=== PATIENT | female | born 1970 | race Caucasian/White ===

== ENCOUNTER 2020-04-04 00:13 | Emergency (ER) | payer SELFPAY ==
[2020-04-04 00:32] VITALS: BP 144/98; PULSE 108; RESP 18; TEMP 36.8; O2SAT 98
--- NOTE | 2020-04-04 00:33 | ED.GIBLEED ---
HPI - GI Bleed General Chief complaint: GI Bleed Stated complaint: rectal pain Source: patient Mode of arrival: ambulatory History of Present Illness HPI Narrative: this is a 49-year-old female presents with some rectal pain, does have history of rectal fissures, patient has tried topical anesthetics like lidocaine but it felt uncomfortable and caused the rectum to burn so she removed it. Currently pain is uncomfortable, has a history of depression and hyperlipidemia. Currently there is no rectal bleeding, no fever chills no nausea vomiting or abdominal [email or web address] MD complaint: other ( currently no bleeding, history of rectal fissures) Onset (ago): month(s) Severity: moderate Exacerbating factors: bowel movement Associated symptoms: denies other symptoms Related Data Home Medications Medication Instructions Recorded Confirmed hydrocortisone acetate [Anucort-HC] 25 mg NE PRN PRN 04/04/20 04/04/20 sertraline 100 mg PO DAILY 04/04/20 04/04/20 trazodone 50 mg PO HS 04/04/20 04/04/20 venlafaxine 75 mg PO DAILY 04/04/20 04/04/20 Allergies Allergy/AdvReac Type Severity Reaction Status Date / Time anesthesia meds Allergy Mild Uncoded 04/22/09 22:02 Review of Systems Review of Systems: All systems reviewed & are unremarkable except as noted in HPI and below PMFSH Past Medical History Medical History Depression HLD (hyperlipidemia) Family History Family History Mother Family history of elevated blood lipids Grandparent Family history of cardiovascular disease Family history of lung cancer Family history of malignant neoplasm of breast in first degree relative Social History Social History Smoking status: Never smoker Alcohol intake: never Substance use type: marijuana Exam Const: General: no acute distress Orientation/consciousness: patient oriented x3 HENMT: Head: normal to inspection Eyes: Pupils: Equal, round and reactive pupils present Neck: Neck: normal visual inspection Chest: Chest palpation & inspection: normal inspection of the chest Resp: Effort & Inspection: normal respiratory effort Cardio: Rate: regular rate Rhythm: regular rhythm GI: GI Palp: Yes Soft to palpation Other: rectal exam that appear to have anal fissure located at the 6 o'clock position with no bleeding currently Skin: General skin exam: normal color Rashes: no rashes Neuro: General: patient oriented x3, moves all extremities and no meningeal signs Extrem: General: normal to inspection and no pedal edema Psych: Appearance: grossly normal Mental Status: mental status grossly normal Course Course Emergency Course: applied nitroglycerin ointment to annual fissure patient voiced some relief of her discomfort. Also used IM Toradol for pain. Critical Care Time Critical Care Time Critical Care Time: No Discharge Plan Discharge Clinical Impression: Chronic rectal fissure Patient Disposition: Home, Self-Care Condition: Stable Instructions: Antibiotic Form, Anal Fissure (ED) Additional Instructions: you some medication as prescribed, and follow-up with primary care physician for further evaluation and treatment. Prescriptions: New Rectiv 0.4 % (w/w) ointment 1 inch RECTAL BID 7 Days Qty: 30 RF: 0 No Action venlafaxine 75 mg capsule,extended release 24hr 75 mg PO DAILY RF: 0 trazodone 50 mg tablet 50 mg PO HS RF: 0 sertraline 100 mg tablet 100 mg PO DAILY RF: 0 hydrocortisone acetate [Anucort-HC] 25 mg suppository 25 mg NE PRN PRN (Reason: Rectal Discomfort) RF: 0 atorvastatin 10 mg tablet 10 mg PO DAILY Qty: 90 RF: 3 Follow-up/Referrals: Barbara Manuel MD [Primary Care Provider] - Time of Disposition: 00:58
[2020-04-04] MEDS: NITROGLYCERIN OINTMENT 1 INCH DOSE (00:51)
[2020-04-04] MEDS: KETOROLAC (*BKC) 60 MG/2 ML VIAL IM (00:51)
[2020-04-04 01:24] VITALS: BP 122/70; PULSE 85; RESP 20; TEMP 37.1; O2SAT 98
== END 2020-04-04 01:27 | disposition home or self-care (01) ==
PROVIDERS: Emergency Provider Emergency Medicine; PCP Family Medicine
DX: K60.1 Chronic anal fissure (principal)
CPT/HCPCS: 96372; 99283; A9270; J1885

== ENCOUNTER 2021-03-28 13:22 | Emergency (ER) | payer OTHER, SELFPAY ==
[2021-03-28 13:30] VITALS: BP 136/89; PULSE 110; RESP 20; TEMP 37.2; O2SAT 97
[2021-03-28 13:57] LABS: SARS-CoV-2 Ag Negative (Negative)
--- NOTE | 2021-03-28 14:01 | ED.URI ---
HPI - URI/Sore Throat General Chief Complaint: Upper Respiratory Infection Stated Complaint: SOB, cough, sneeze, sore throat, fatigue, no taste Source: patient Mode of arrival: ambulatory History of Present Illness HPI Narrative: this is a 50-year-old female nonsmoker presents with some cough and congestion for the last 5 days, with no fever chills no nausea vomiting no chest pain no abdominal pain. The patient has stuffy nose with nasal discharge nonproductive cough with no audible wheezing. MD elicited complaint: cough Onset (ago): day(s) Consistency: constant Severity: mild Description of mucous: clear Related Data Home Medications Medication Instructions Recorded Confirmed buspirone 15 mg tablet 15 mg PO BID 03/19/21 03/28/21 Allergies Allergy/AdvReac Type Severity Reaction Status Date / Time succinylcholine AdvReac Drowsy Verified 03/28/21 13:37 Review of Systems Review of Systems: All systems reviewed & are unremarkable except as noted in HPI and below PMFSH Past Medical History Medical History Anal fissure Anal fissure Depression Hay fever Headache, migraine Hemorrhoid HLD (hyperlipidemia) Lumbar disc disease Rectal discomfort Tarsal tunnel syndrome Surgical History Surgical History History of knee surgery Family History Family History Mother Family history of elevated blood lipids Grandparent Family history of cardiovascular disease Family history of lung cancer Family history of malignant neoplasm of breast in first degree relative Social History Social History Smoking status: Never smoker Alcohol intake: never Substance use type: marijuana Exam Const: General: no acute distress Orientation/consciousness: patient oriented x3 HENMT: Head: normal to inspection Eyes: Conjunctivae: conjunctivae normal Pupils: Equal, round and reactive pupils present Neck: Neck: normal visual inspection Chest: Chest palpation & inspection: normal inspection of the chest Resp: Effort & Inspection: normal respiratory effort Auscultation: clear to auscultation bilaterally Cardio: Rate: regular rate Rhythm: regular rhythm : General: Yes no CVA tenderness Back/Spine/Pelvis: Back: no CVA tenderness Skin: General skin exam: normal color Rashes: no rashes Extrem: General: normal to inspection and no pedal edema Psych: Mental Status: mental status grossly normal Affect: normal affect Course Course Emergency Course: Patient with a cough that is nonproductive with some lungs are clear reviewed negative COVID test and advised to take medicine as prescribed and follow-up primary care physician if symptoms persist. Vital Signs Vital signs: Vital Signs Temperature 37.2 C 03/28/21 13:30 Pulse Rate 110 H 03/28/21 13:30 Respiratory Rate 20 03/28/21 13:30 Blood Pressure 136/89 03/28/21 13:30 Pulse Oximetry 97 03/28/21 13:30 Temperature 37.2 C 03/28/21 13:30 Pulse Rate 110 H 03/28/21 13:30 Respiratory Rate 20 03/28/21 13:30 Blood Pressure 136/89 03/28/21 13:30 Pulse Oximetry 97 03/28/21 13:30 MDM - URI/Sore Throat Lab Data Labs: Lab Results 03/28/21 Range/Units 13:35 SARS-CoV-2 Ag (Rapid) Negative (Negative) Critical Care Time Critical Care Time Critical Care Time: No Discharge Plan Discharge Clinical Impression: Upper respiratory tract infection Qualifiers: URI type: unspecified URI Qualified Code(s): J06.9 - Acute upper respiratory infection, unspecified Patient Disposition: Home, Self-Care Condition: Stable Instructions: Antibiotic Form, Upper Respiratory Infection (ED) Additional Instructions: follow-up with primary care physician if symptoms persist or worsen, take medicine as pres
[2021-03-28 14:10] VITALS: RESP 16
== END 2021-03-28 14:10 | disposition home or self-care (01) ==
PROVIDERS: Emergency Provider Emergency Medicine; PCP Family Medicine
DX: J06.9 Acute upper respiratory infection, unspecified (principal); Z20.822 Contact with and (suspected) exposure to COVID-19
CPT/HCPCS: 87426; 99282; 99283; C9803

== ENCOUNTER 2021-04-17 03:00 | Day surgery (SDC) | payer OTHER, SELFPAY ==
[2021-04-02 15:06] VITALS: BMI 26.6
[2021-04-17 10:41] VITALS: BP 118/76; PULSE 77; RESP 18; TEMP 36.4; O2SAT 98; BMI 27.6
[2021-04-17] MEDS: LACTATED RINGERS 1,000 ML 150 ML IV CONT (10:53)
--- NOTE | 2021-04-17 11:12 | P.PNAN_ITS ---
Anes - Initial Pre Proc Eval Procedure: Operation Date: 04/17/21 11:30 Proposed Procedures p Colonoscopy - Ronald Godwin MD Date/Time: 04/17/21 11:12 Surgeon: Ronald Godwin MD Pre Op Diagnosis: rectal pain Patient Data Age: 50 Gender: F Height: 1.6 m Weight: 70.8 kg Last Vital Signs Temp 97.6 F 04/17/21 10:41 Pulse 77 04/17/21 10:41 Resp 18 04/17/21 10:41 BP 118/76 04/17/21 10:41 Pulse Ox 98 04/17/21 10:41 Allergies Allergy/AdvReac Type Severity Reaction Status Date / Time succinylcholine AdvReac Drowsy Verified 04/02/21 15:05 Home Medications Medication Instructions Recorded Confirmed Type atorvastatin 10 mg tablet 10 mg PO DAILY #90 tablet 11/26/19 04/02/21 Rx buspirone 15 mg tablet 15 mg PO BID 03/19/21 04/02/21 History benzonatate [Tessalon Perles] 100 mg PO TID #20 cap 03/28/21 04/02/21 Rx Patient hx anesthesia problems: none Family hx anesthesia problems: none Results Review: All pre-operative results and documents have been reviewed as part of the pre-operative evaluation. [facility] Past Medical History Medical History Anal fissure Anal fissure Depression Hay fever Headache, migraine Hemorrhoid HLD (hyperlipidemia) Lumbar disc disease Rectal discomfort Tarsal tunnel syndrome Surgical History Surgical History History of knee surgery Family History Family History Mother Family history of elevated blood lipids Grandparent Family history of cardiovascular disease Family history of lung cancer Family history of malignant neoplasm of breast in first degree relative Social History Social History Smoking status: Never smoker Alcohol intake: former Substance use: never Substance use type: does not use Living arrangements: with family Spiritual care concerns: No Anes - Eval Final PreProcedure Day of Procedure 04/17/21 11:12 Patient weight: normal Heart: regular rate and rhythm Lungs: clear to auscultation Airway: Mallampati scale class II Neurological: alert and oriented Last oral intake: >/= 8 hours ASA classification: II Emergent: no Anesthetic plan: proceed Anesthesia type and monitoring: general GIVS and standard monitoring Results Review: All pre-operative results and documents have been reviewed as part of the pre-operative evaluation. Informed Consent: The patient's anesthetic plan and its attendant risks and benefits were discussed with the patient/family/POA. Questions were solicited and answers provided to the satisfaction of the patient/family/POA.
--- NOTE | 2021-04-17 11:15 | WPDHPUPDATE1 ---
History and Physical Update Update Date/Time: 04/17/21 11:15 History and Physical has been reviewed, including an updated exam of the patient. There are NO changes in the patient's condition. Risks, benefits, and alternatives have been discussed and questions answered. Patient agrees to proceed with procedure.
[2021-04-17 11:41] VITALS: BP 97/65; PULSE 72; RESP 12; O2SAT 100
[2021-04-17 11:51] VITALS: BP 112/73; PULSE 65; RESP 17; O2SAT 100
[2021-04-17 12:01] VITALS: BP 121/68; PULSE 59; RESP 13; O2SAT 100
== END 2021-04-17 12:20 | disposition home or self-care (01) ==
PROVIDERS: PCP Family Medicine; Visit Provider Internal Medicine Gastroenterology
PROC: 0DJD8ZZ Inspection of Lower Intestinal Tract, Via Natural or Artificial Opening Endoscopic (ICD-10-PCS; CPT 45378; principal; 2021-04-17 11:30)
DX: Z12.11 Encounter for screening for malignant neoplasm of colon (principal); D12.0 Benign neoplasm of cecum; K62.89 Other specified diseases of anus and rectum; K64.8 Other hemorrhoids; D12.2 Benign neoplasm of ascending colon; E78.5 Hyperlipidemia, unspecified; G57.50 Tarsal tunnel syndrome, unspecified lower limb; F12.90 Cannabis use, unspecified, uncomplicated; K60.2 Anal fissure, unspecified
CPT/HCPCS: 45385; 88305; J7120

== ENCOUNTER 2021-08-25 06:59 | Outpatient (CLI) | payer BC, OTHER, SELFPAY ==
--- NOTE | ~2021-08-25 | MM_ITS ---
EXAMINATION: MM screening carlos BI w shital HISTORY: Screening TECHNIQUE: Craniocaudal and mediolateral oblique 3-D tomosynthesis images were obtained and synthetic 2-D images were generated. CAD analysis was submitted and interpreted. COMPARISON: 12/06/2027 BREAST PARENCHYMAL COMPOSITION: There are scattered areas of fibroglandular density. FINDINGS: There is no evidence of suspicious mass, calcification, or architectural distortion to sugg est malignancy in either breast. There has been no suspicious interval change. IMPRESSION: 1. No mammographic evidence of malignancy. 2. Recommend routine screening mammography in one year. BI-RADS Category 1: Negative Reviewed, dictated and finalized at location A. ER SPEAR
== END 2021-08-25 07:00 | disposition home or self-care (01) ==
LOC: CHSIMG 07:01
PROVIDERS: PCP Family Medicine; Visit Provider Family Medicine
DX: Z12.31 Encounter for screening mammogram for malignant neoplasm of breast (principal)
CPT/HCPCS: 77063; 77067

== ENCOUNTER 2022-08-27 11:52 | Outpatient (CLI) | payer BC, MEDICAID, SELFPAY ==
--- NOTE | ~2022-08-27 | MM_ITS ---
EXAMINATION: MM screening carlos BI w shital HISTORY: Screening TECHNIQUE: Craniocaudal and mediolateral oblique 3-D tomosynthesis images were obtained and synthetic 2-D images were generated. CAD analysis was submitted and interpreted. COMPARISON: Comparison to multiple prior studies sequentially, with oldest reviewed study dated 12/05. BREAST PARENCHYMAL COMPOSITION: There are scattered areas of fibroglandular density. FINDINGS: There is no evidence of suspicious mass, calcification, or architectural distortion to sugg est malignancy in either breast. There has been no suspicious interval change. IMPRESSION: 1. No mammographic evidence of malignancy. 2. Recommend routine screening mammography in one year. BI-RADS Category 1: Negative Reviewed, dictated and finalized at location A. P FILLER
== END 2022-08-27 11:53 | disposition home or self-care (01) ==
LOC: CHSIMG 11:53
PROVIDERS: PCP Family Medicine; Visit Provider Physician Assistant
DX: Z12.31 Encounter for screening mammogram for malignant neoplasm of breast (principal)
CPT/HCPCS: 77063; 77067

== ENCOUNTER 2024-07-08 10:48 | Emergency (ER) | payer BC, SELFPAY ==
--- NOTE | ~2024-07-08 | XR_ITS ---
Clinical Indication: Cough, shortness of breath PA and lateral views of the chest: Comparison: 02/11/2017 Findings: The lungs are clear, without evidence of focal consolidation or pleural effusion. Cardiome diastinal silhouette is within normal limits. Bones and soft tissues are unremarkable. Impression: Normal chest. Reviewed, dictated and finalized at location . 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
[2024-07-08 10:49] VITALS: BP 156/97; PULSE 83; RESP 18; TEMP 36.2; O2SAT 94
[2024-07-08 10:50] VITALS: O2SAT 100
--- NOTE | 2024-07-08 11:25 | PC.NURSE ---
covid swab sent to lab
--- NOTE | 2024-07-08 11:37 | ED_ITS ---
HPI - URI/Sore Throat General Chief Complaint: Upper Respiratory Infection Stated Complaint: cough, sick Time Seen by Provider: 07/08/24 11:20 Source: patient and family Mode of arrival: ambulatory Limitations: no limitations History of Present Illness HPI Narrative: patient reports coughing, sore throat, body aches, no energy, night sweat for the last 7 days with hoarseness of voice and productive cough at night when she laid down flat. Over the last 2 days patient been feeling over the last 2 days patient been feeling lightheadedness and dizziness when she does activities. Patient been taking [id number] cold symptoms. Related Data Home Medications ?Medication ?Instructions ?Recorded ?Confirmed ?Last Taken ?Type buspirone 15 mg tablet 15 mg PO BID 03/19/21 07/08/24 04/15/21 History meloxicam 15 mg tablet 10 mg PO DAILY 07/08/24 07/08/24 Unknown History Allergies Allergy/AdvReac Type Severity Reaction Status Date / Time succinylcholine AdvReac Drowsy Verified 07/08/24 11:13 Review of Systems Review of Systems: All systems reviewed & are unremarkable except as noted in HPI and below PMFSH Past Medical History Medical History Rectal discomfort Hemorrhoid Anal fissure Headache, migraine Tarsal tunnel syndrome Lumbar disc disease Hay fever Anal fissure Depression HLD (hyperlipidemia) Surgical History Surgical History History of knee surgery Family History Family History Mother Family history of elevated blood lipids Grandparent Family history of cardiovascular disease Family history of lung cancer Family history of malignant neoplasm of breast in first degree relative Social History Social History Smoking status: Never smoker Alcohol intake: former Substance use: never Substance use type: does not use Living arrangements: with family Spiritual care concerns: No Exam Narrative: General appearance: Well-developed, well-nourished , raspy voice Skin: Normal color Head: Normocephalic, nontraumatic Eyes: Clear conjunctiva ENT: Oropharynx normal, ears normal, nose normal Neck: Supple, nontender Chest and respiratory: Airway patent, no respiratory distress, no accessory muscle use Heart: Regular rate/rhythm Abdomen: Soft, nontender, no organomegaly, quiet bowel sounds Vascular: Normal peripheral pulses, normal capillary refill. 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, no gross motor deficit Course Vital Signs Vital signs: Vital Signs Temperature 36.2 C L 07/08/24 10:49 Pulse Rate 83 07/08/24 10:49 Respiratory Rate 18 07/08/24 10:49 Blood Pressure 156/97 H 07/08/24 10:49 Pulse Oximetry 94 07/08/24 10:49 Oxygen Delivery Room Air 07/08/24 10:49 Temperature 36.6 C 07/08/24 12:12 Pulse Rate 66 07/08/24 12:12 Respiratory Rate 18 07/08/24 12:12 Blood Pressure 147/92 H 07/08/24 12:12 Pulse Oximetry 96 07/08/24 12:12 Oxygen Delivery Room Air 07/08/24 12:12 MDM - URI/Sore Throat MDM Narrative Medical decision making narrative: patient presents with upper respiratory viral infection symptoms started 7 days ago Vital signs showing blood pressure 156/97 Physical examination showing a patient with raspy voice, otherwise insignificant Differential diagnosis include upper respiratory viral infection, viral syndrome, secondary bacterial infection, side effect to [id number] cold medicine which include dizziness, drowsiness, insomnia, headache and dry mouth. Chest x-ray today showed no acute abnormalities Patient tested negative for COVID, flu and RSV. My plan to discharge patient on doxycycline for possible secondary bacterial infection of the sinuses and Flonase. Patient to stop [id number] cold meds. Differential Diagnosis Differential diagnosis: Likely upper respiratory infection, sinusitis, viral infection, bronchitis, influenza and pharyngitis Lab Data Attestation: I reviewed the patient's lab results. Labs: Lab Results 07/08/24 Range/Units 11:20 Influenza A (RT-PCR) Negative (Negative) Influenza B (RT-PCR) Negative (Negative) RSV (RT-PCR) Negative (Negative) SARS-CoV-2 RNA (RT-PCR) Negative (Negative) Imaging Data My impression: Impressions Chest X-Ray 07/08/24 11:38 Impression: Normal chest. Radiologist's impression: Chest x-ray showed no acute abnormalities Critical Care Time Critical Care Time Critical Care Time: No Discharge Plan Discharge Clinical Impression: Sinusitis, Drug side effects Patient Disposition: Home, Self-Care Condition: Stable Instructions: Sinusitis (ED), Viral Syndrome (ED) Additional Instructions: Return if symptoms are worsening , call your family physician for appointment, take Tylenol , ibuprofenas as needed for aches and pain, continue home medications. Stop [id number] cold medicine Encourage fluid intake Patient Language: Khmer Prescriptions: New doxycycline hyclate 100 mg capsule 100 mg PO BID Qty: 20 0RF fluticasone propionate [Flonase Allergy Relief] 50 mcg/actuation spray,suspension 2 spray intranasal DAILY Qty: 36.4 0RF Rx Instructions: administer into each nostril No Action meloxicam 15 mg tablet 10 mg PO DAILY buspirone 15 mg tablet 15 mg PO BID Follow-up/Referrals: Kerrie Vora RN [Registered Nurse] -
[2024-07-08 12:12] VITALS: BP 147/92; PULSE 66; RESP 18; TEMP 36.6; O2SAT 96
[2024-07-08 12:13] LABS: Influenza A QL RT-PCR Negative (Negative); Influenza B QL RT-PCR Negative (Negative); RSV RNA, RT-PCR Negative (Negative); SARS-CoV-2 RNA PCR Negative (Negative)
[2024-07-08 12:40] VITALS: TEMP 36.9
--- OUTSIDE RECORDS SUMMARY | 2024-07-12 23:51 | XMS_ITS | Encounter Summary ---
Author Organization [facility] Address [address] [place] [address]. [place], [place] [id number] [place] [id number] Care Team Providers Care Medical Scientific Liaison Name Role Phone Brenton Vora MD Primary Care Provider [phone] Reason for Visit * Imaging (Routine) - Closed Specialty Diagnoses / Procedures Referred By Pam lim Referred To Contact RADIOLOGY Diagnoses Fibroids Procedures US PELVIC NON OB COMP TA+TV Servando So PA [address] [place] [phone] Phone: tel: fax: Referral ID Status Reason Start Date Expiration Date Visits Re quested Visits Authorized [id number] Closed 08/27/2022 08/27/2023 1 1 Encounter Details Date Type Department Care Team (Latest Contact Info) Description 12/29/2022 5:51 AM CDT - 12/29/2022 11:59 PM CDT Hospital Encounter [facility] [address] [place] [address] Servando So PA [address] [place] [phone] Discharge Disposition: Home or Self Care (Routine Discharge) Social History Tobacco Use Types Packs/Day Years Used Date Smoking Tobacco: Never Smokeless Tobacco: Never Alcohol Use Standard Drinks/Week Comments Not Currently 0 (1 standard drink = 0.6 oz pur e alcohol) Comments No Sex and Gender Information Value Date Recorded Sex Assigned at Not on file 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 No / Unsure 12/29/2022 5:49 AM CDT documented as of this encounter Medications at Time of Discharge buPROPion XL (WELLBUTRIN XL) 300 MG 24 hr tablet Take 1 tablet (300 mg total) by mouth daily. 08/17/2022 atorvastatin 10 MG tablet Take 1 tablet (10 mg total) by mouth nightly at bedtime. 3 cyclobenzaprine (FLEXERIL) 5 MG tablet 1 (ONE) TABLET TWICE DAILY NEEDED PAIN/SPASMS 08/30/2022 3 hydrOXYzine (ATARAX) 10 MG tablet Take 1 tablet (10 mg total) by mouth nightly. 09/22/2022 3 meloxicam (MOBIC) 15 MG tabletIndications:Os teoarthritis of left patellofemoral joint TAKE 1 TABLET (15 MG TOTAL) BY MOUTH DAILY. 30 tablet 2 11/24/2022 3 methylPREDNISolone, BETY, (MEDROL DOSEPAK) 4 MG tablet TAKE 6 TABLETS ON DAY 1 DIRECTED ON PACKAGE AND DECREASE BY 1 TAB EACH DAY FOR A TOTAL OF 6 DAYS 11/12/2022 3 metroNIDAZOLE (FLAGYL) 500 MG tablet Take 1 tablet (500 mg total) by mouth 2 (two) times daily. 08/26/2022 3 SUMAtriptan 100 MG tablet Take 1 tablet (100 mg total) by mouth 2 (two) times daily as needed for Migraine. Take 1 tablet at onset of symptoms, may take 1 tablet 2 hours later. Max of 2 tablets in 24-hour period. 20 tablet 12/03/2020 3 venlafaxine 75 MG tablet Take 2 tablets (150 mg total) by mouth daily. 3 documented as of this encounter Plan of Treatment Not on file documented as of this encounter Procedures Procedure Name Priority Date/Time Associated Diagnosis Comments US PELVIC NON OB COMP TA+TV Routine 12/29/2022 6:29 AM CDT Fibroids documented in this encounter Results * US PELVIC NON OB COMP TA+TV (12/29/2022 6:29 AM CDT) Anatomical Region Laterality Modality Pelvis Ultrasound 12/30/2022 1:43 PM CDT Impressions 12/30/2022 2:09 PM CDT IMPRESSION: LIMITED STUDY ON ACCOUNT OF THE UTERINE POSITION. MULTIPLE SUSPECTED SMALL FIBROIDS. THE ENDOMETRIUM IS NOT WELL DEMONSTRATED. Ordered By: SERVANDO SO Interpreted By: Estuardo Boggs MD, 12/30/2022 1:43 PM Narrative 12/30/2022 2:09 PM CDT Examination: US PELVIC NON OB COMP TA+TV Exam time: 12/29/2022 5:53 AM Clinical history: Fibroids. Comparison: None. Technique: Transabdominal and transvaginal ultrasound pelvis performed. Findings: Study is limited on account of the considerable heterogeneous appearance of the retroverted/retroflexed uterus with multiple small relatively isoechoic suspected fibroids. The largest fibroids is in the lateral body measuring 12 x 13 x 10 mm. Overall, the uterus measures 5.9 x 2.8 x 3.9 cm for total volume of 34.2 mL. The endometrium is not well demonstrated and measures 6 mm in thickness. No definite mass or fluid in the endometrial canal or cul-de-sac. There is no ovarian torsion. The right ovary includes a dominant follicle measuring 2.2 x 2.1 x 1.8 cm. Overall the right ovary measured 2.5 x 3.5 x 1.9 cm. Left ovary contains small follicles and measures 2.5 x 2.0 x 1.9 cm. No abnormal adnexal mass or fluid. Procedure Note Estuardo Boggs MD - 12/30/2022 Examination: US PELVIC NON OB COMP TA+TV Exam time: 12/29/2022 5:53 AM Clinical history: Fibroids. Comparison: None. Technique: Transabdominal and transvaginal ultrasound pelvis performed. Findings: Study is limited on account of the considerable heterogeneousappearance of the retroverted/retroflexed uterus with multiple smallrelatively isoechoic suspected fibroids. The largest fibroids is in thelateral body measuring 12 x 13 x 10 mm. Overall, the uterus measures 5.9 x2.8 x 3.9 cm for total volume of 34.2 mL. The endometrium is not welldemonstrated and measures 6 mm in thickness. No definite mass or fluid inthe endometrial canal or cul-de-sac. There is no ovarian torsion. Theright ovary includes a dominant follicle measuring 2.2 x 2.1 x 1.8 cm.Overall the right ovary measured 2.5 x 3.5 x 1.9 cm. Left ovary containssmall follicles and measures 2.5 x 2.0 x 1.9 cm. No abnormal adnexal massor fluid. IMPRESSION: LIMITED STUDY ON ACCOUNT OF THE UTERINE POSITION. MULTIPLE SUSPECTED SMALLFIBROIDS. THE ENDOMETRIUM IS NOT WELL DEMONSTRATED. Ordered By: SERVANDO SO Interpreted By: Estuardo Boggs MD, 12/30/2022 1:43 PM us [facility] [place] [facility] Final Result documented in this encounter Visit Diagnoses Not on filedocumented in this encounter Care Teams Medical Scientific Liaison Relationship Specialty Start Date End Date Brenton Vora MD [address] [place] [phone] PCP - General FAMILY PRACTICE 09/09/22 documented as of this encounter
--- OUTSIDE RECORDS SUMMARY | 2024-07-12 23:51 | XMS_ITS | Encounter Summary ---
Author Organization [facility] Address [address] [place] [address]. [place], [place] [address] [place] [id number] Care Team Providers Care Wellness Coach Name Role Phone Brenton Vora MD Primary Care Provider [phone] Reason for Referral * Imaging (Routine) - Closed Specialty Diagnoses / Procedures Referred By Contac t Referred To Contact RADIOLOGY Diagnoses Fibroids Procedures US PELVIC NON OB COMP TA+TV Servando So PA [address] [place] [phone] Phone: tel: fax: Referral ID Status Reason Start Date Expiration Date Visits Re quested Visits Authorized [id number] Closed 08/27/2022 08/27/2023 1 1 CTOR DIGITAL ADVERTISING * Imaging (Routine) - Closed Specialty Diagnoses / Procedures Referred By Contac t Referred To Contact RADIOLOGY Diagnoses Postmenopausal Procedures BONE DENSITY/DEXA Meg Curiel NP [address] [place] [phone] Phone: tel: fax: Referral ID Status Reason Start Date Expiration Date Visits Re quested Visits Authorized [id number] Closed 09/01/2022 09/01/2023 1 1 CTOR DIGITAL ADVERTISING Reason for Visit * Imaging (Routine) - Closed Specialty Diagnoses / Procedures Referred By Contac t Referred To Contact RADIOLOGY Diagnoses Postmenopausal Procedures BONE DENSITY/DEXA Meg Curiel, ASHANTI [address] [place] [address] Phone: tel: fax: Referral ID Status Reason Start Date Expiration Date Visits Re quested Visits Authorized [id number] Closed 09/01/2022 09/01/2023 1 1 Encounter Details Date Type Department Care Team (Latest Contact Info) Description 09/09/2022 9:45 AM DIRECTOR DIGITAL ADVERTISING - 09/09/2022 11:59 PM DIRECTOR DIGITAL ADVERTISING Hospital Encounter [facility] [address] [place] [address] Meg Curiel NP [address] [place] [address] Discharge Disposition: Home or Self Care (Routine Discharge) Social History Tobacco Use Types Packs/Day Years Used Date Smoking Tobacco: Never Smokeless Tobacco: Never Alcohol Use Standard Drinks/Week Comments Not Currently 0 (1 standard drink = 0.6 oz pur e alcohol) Comments No Sex and Gender Information Value Date Recorded Sex Assigned at Not on file Legal Sex Female 10:30 PM DIRECTOR DIGITAL ADVERTISING Gender Identity Not on file Sexual Orientation Not on file COVID-19 Exposure Response Date Recorded In the last 10 days, have yo u been in contact with someone who was confirmed or suspected to have Coronavirus/COVID-19? No / Unsure 09/09/2022 9:39 AM DIRECTOR DIGITAL ADVERTISING documented as of this encounter Medications at Time of Discharge buPROPion XL (WELLBUTRIN XL) 300 MG 24 hr tablet Take 1 tablet (300 mg total) by mouth daily. 08/17/2022 atorvastatin 10 MG tablet Take 1 tablet (10 mg total) by mouth nightly at bedtime. 3 buPROPion XL 150 MG 24 hr tablet Take 150 mg by mouth daily. 02/14/2020 3 cyclobenzaprine (FLEXERIL) 5 MG tablet 1 (ONE) TABLET TWICE DAILY NEEDED PAIN/SPASMS 08/30/2022 3 meloxicam (MOBIC) 15 MG tabletIndications:Os teoarthritis of left patellofemoral joint TAKE 1 TABLET (15 MG TOTAL) BY MOUTH DAILY. 30 tablet 02 08/04/2022 3 metroNIDAZOLE (FLAGYL) 500 MG tablet Take [...] TA+TV Routine 12/29/2022 6:29 AM CDT Fibroids BONE DENSITY/DEXA Routine 09/09/2022 3:2 7 PM DIRECTOR DIGITAL ADVERTISING Postmenopausal documented in this encounter Results * US [...] Boggs MD, 12/30/2022 1:43 PM us Servando BRUNO ULTRASOUND Final Result * BONE DENSITY/DEXA (09/09/2022 3:27 PM DIRECTOR DIGITAL ADVERTISING) Anatomical Region Laterality Modality Bone Bone Density 09/09/2022 3:42 PM DIRECTOR DIGITAL ADVERTISING Impressions 09/09/2022 3:44 PM DIRECTOR DIGITAL ADVERTISING Impression: BMD measured at AP lumbar spine, both total hips and both femoral necks at WHO category level of normal. Ordered By: MEG CURIEL Interpreted By: Domingo Bueno MD, 09/09/2022 3:42 PM Narrative 09/09/2022 3:44 PM DIRECTOR DIGITAL ADVERTISING Examination: DEXA Bone densitometry EXAM DATE: ??09/09/2022 3:27 PM Clinical history: Postmenopausal. Vitamin D use. Dairy product consumption. Weight-bearing exercise. Technique: DEXA bone minimal density evaluation was performed in the AP projection over the lumbar spine and over both hips in the AP projection utilizing standard imaging techniques. Assessment: The BMD measured at the AP spine L1-L4 is 1.062 g/cm2 with a T-score of 0.1 and a Z-Score of ??0.9. ?? Bone density is up to 10% below young normal. This patient is considered normal according to the World Health Organization (WHO) criteria. Fracture risk is low. The BMD measured at the femur total left is 0.884 g/cm2 with a T-score of -0.5 and a Z-Score of 0.0. ?Bone density is up to 10% below young normal. This patient is considered normal according to the World Health Organization (WHO) criteria. Fracture risk is low. The BMD measured at the left femoral neck is 0.735 g/sq cm resulting in a T score of -1.0 and a Z score of -0.2, values at the WHO category level of normal. The BMD measured at the femur total right is 0.869 g/cm2 with a T-score of -0.6 and aZ-Score of ??-0.1. ?? Bone density is up to 10% below young normal. This patient is considered normal according to the World Health Organization (WHO) criteria. Fracture risk is low. The BMD measured at the right femoral neck is 0.753 g/sq cm resulting in a T score of -0.9 and a Z score of -0.1, values at the WHO category level of normal. FRAX results: 10 year probability of major osteoporotic fracture 4.3% and of hip fracture 0.2%. Recommendations: All patients should ensure an adequate intake of dietary calcium and vitamin D. The NOF recommend adults under the age of 50 need 1000 mg of calcium and 400-800 IU of vitamin D daily. Effective therapy for the prevention and treatment of osteoporosis include biphosphonates. Follow-up: People with diagnosed cases of osteoporosis or at high risk for fracture should have regular bone mineral density test. For patients eligible for Medicare, routine testing is allowed once every 2 years. Testing frequency can be increased to one year for patients who have rapidly progressing disease, those who are receiving or discontinuing medical therapy to restore bone mass, or have additional risk factors. Based on these results, a followup exam is recommended in no earlier than 2 years. Procedure Note Domingo Bueno MD - 09/09/2022 Examination: DEXA Bone densitometry EXAM DATE: 09/09/2022 3:27 PM Clinical history: Postmenopausal. Vitamin D use. Dairy productconsumption. Weight-bearing exercise. Technique: DEXA bone minimal density evaluation was performed in the APprojection over the lumbar spine and over both hips in the AP projectionutilizing standard imaging techniques. Assessment: The BMD measured at the AP spine L1-L4 is 1.062 g/cm2 with a T-score of0.1 and a Z-Score of 0.9. Bone density is up to 10% below young normal.This patient is considered normal according to the World HealthOrganization (WHO) criteria. Fracture risk is low. The BMD measured at the femur total left is 0.884 g/cm2 with a T-score of-0.5 and a Z-Score of 0.0. Bone density is up to 10% below youngnormal. This patient is considered normal according to the World HealthOrganization (WHO) criteria. Fracture risk is low. The BMD measured at the left femoral neck is 0.735 g/sq cm resulting in aT score of -1.0 and a Z score of -0.2, values at the WHO category level ofnormal. The BMD measured at the femur total right is 0.869 g/cm2 with a T-score of-0.6 and aZ-Score of -0.1. Bone density is up to 10% below youngnormal. This patient is considered normal according to the World HealthOrganization (WHO) criteria. Fracture risk is low. The BMD measured at the right femoral neck is 0.753 g/sq cm resulting in aT score of -0.9 and a Z score of -0.1, values at the WHO category level ofnormal. FRAX results: 10 year probability of major osteoporotic fracture 4.3% andof hip fracture 0.2%. Recommendations: All patients should ensure an adequate intake of dietary calcium andvitamin D. The NOF recommend adults under the age of 50 need 1000 mg ofcalcium and 400-800 IU of vitamin D daily. Effective therapy for theprevention and treatment of osteoporosis include biphosphonates. Follow-up: People with diagnosed cases of osteoporosis or at high risk for fractureshould have regular bone mineral density test. For patients eligible forMedicare, routine testing is allowed once every 2 years. Testing frequencycan be increased to one year for patients who have rapidly progressingdisease, those who are receiving or discontinuing medical therapy torestore bone mass, or have additional risk factors. Based on these results, a followup exam is recommended in no earlier than2 years. Impression: BMD measured at AP lumbar spine, both total hips and both femoral necks atWHO category level of normal. Ordered By: MEG CURIEL Interpreted By: Domingo Bueno MD, 09/09/2022 3:42 PM us Meg Curiel LINE COOK DEXA Fin al Result documented in this encounter Visit Diagnoses Diagnosis Postmenopausal Asymptomatic postmenopausal status (age-related) (natural) Fibroids Leiomyoma of uterus, unspecified documented in this encounter Care Teams Wellness Coach Relationship Specialty Start Date End Date Brenton Vora MD [address] [place] [phone] PCP - General FAMILY PRACTICE 09/09/22 documented as of this encounter
--- OUTSIDE RECORDS SUMMARY | 2024-07-12 23:51 | XMS_ITS | Clinical Summary ---
Author Organization [facility] Address [address] [place] [address] Care Team Providers Care Technical Project Manager Name Role Phone Nicola Martinez MD Unavailable [phone] None, Physician Primary Care Provider Unavailabl e Source Comments [facility],non-owned Affiliates and Associated Physician Practices is amultiple site organization consisting of ambulatory clinics and hospital sitesin [place], [place], [place] and [place]. This disclosure is being madepursuant to the Care Everywhere program and may not contain all information available regarding this patient. Last updated 18.[facility] Allergies Active Allergy Reactions Criticality Noted Date Comments Lidocaine Unknown 04/28/2023 Succinylcholine Anaphylaxis High 09/14/2015 Medications * Be aware that medications may not be up to date on this document. Alwaysverify current medications with the patient. Medication Sig Dispensed Refills Start Date End Date Status buPROPion XL 24hr (Wellbutrin-XL) 300 MG tablet 03/29/2023 Active busPIRone (Buspar) 15 MG tablet 03/16/2023 Active meloxicam (Mobic) 15 MG tablet Take 1 (one) tablet by mouth once daily 04/15/2023 Active Social History Tobacco Use Types Packs/Day Years Used Date Smoking Tobacco: Never Smokeless Tobacco: Never Tobacco Cessation:Counseling Given: Not Answered Sex and Gender Information Value Date Recorded Sex Assigned at Not on file Gender Identity Not on file Sexual Orientation Not on file Last Filed Vital Signs Vital Sign Reading Time Taken Comments Blood Pressure 130/86 04/28/2023 9:09 AM CDT Pulse 65 04/28/2023 9:09 AM CDT Temperature 36.6 ??C (97.9 ??F) 04/28/2023 9:09 AM CD T Respiratory Rate 13 09/14/2015 10:45 PM ACCOUNTING TECHNICIAN Oxygen Saturation 98% 04/28/2023 9:09 AM CDT Inhaled Oxygen Concentration - - Weight 71.7 kg (158 lb) 04/28/2023 9:09 AM CDT Height 157.5 cm (5' 2 ) 04/28/2023 9:09 AM CDT Body Mass Index 28.9 04/28/2023 9:09 AM CDT Plan of Treatment Health Maintenance Due Date Last Done Comments COLOGUARD (AGES 45-75) - COL ON CA SCREENING 1971 COLON MONITORING 1971 COLONOSCOPY - COLON CA SCREENING 1971 CT COLONOGRAPHY - COLON CA SCREENING 1971 Colorectal Cancer Screening 1971 FIT - COLON CA SCREENING 1971 FLEX SIG - COLON CA SCREENING 1971 LIPID TESTING 1971 MAMMOGRAM 1971 PAP SMEAR 1971 HIV SCREENING 1986 HEPATITIS C SCREENING 08/08/1989 DTAP/TDAP/TD VACCINES (1 - Tdap) 1990 HEPATITIS B VACCINE (1 of 3 - 19+ 3-dose series) 1990 ZOSTER VACCINE (1 of 2) 2021 SCREENING FOR DIABETES 04/28/2023 09/14/2015 DEPRESSION SCREENING 07/25/2023 COVID-19 VACCINE (1 - 2023-2 5 season) 2024 INFLUENZA VACCINE (#1) 2024 HIB VACCINE Aged Out No longer eligi ble based on patient's age to complete this topic HPV VACCINE Aged Out No longer eligi ble based on patient's age to complete this topic MENINGOCOCCAL VACCINE Aged Out No zara selina eligible based on patient's age to complete this topic PNEUMOCOCCAL VACCINE Aged Out No long er eligible based on patient's age to complete this topic Procedures Procedure Name Priority Date/Time Associated Diagnosis Comments COMPREHENSIVE METABOLIC PANEL STAT 09/14/2015 9:38 PM ACCOUNTING TECHNICIAN from Last 3 Months or Most Recently Relevant to Health Maintenance Results * (ABNORMAL) COMPREHENSIVE METABOLIC PANEL (09/14/2015 9:38 PM ACCOUNTING TECHNICIAN) [facility] Signature Glucose 119(H) 74 - 106 mg/dL 09/14/2015 9:56 PM [facility] Sodium 138 136 - 145 mmol/L 09/14/2015 9:56 PM [facility] Potassium 3.7 3.5 - 5.1 mmol/L 09/14/2015 9:56 PM [facility] Chloride 103 98 - 107 mmol/L 09/14/2015 9:56 PM [facility] CO2 24 22 - 31 mmol/L 09/14/2015 9:56 PM [facility] Calcium 9.2 8.5 - 10.1 mg/dL 09/14/2015 9:56 PM [facility] Anion Gap 11 5 - 20 mmol/L 09/14/2015 9:56 PM [facility] BUN 19 7 - 21 mg/dL 09/14/2015 9:56 PM [facility] Creatinine 0.90 0.50 - 1.30 mg/dL 09/14/2015 9:56 PM [facility] Alkaline Phosphatase 57 38 - 126 U/L 09/14/2015 9:56 PM [facility] ALT 22 12 - 78 U/L 09/14/2015 9:56 PM [facility] AST 15 5 - 40 U/L 09/14/2015 9:56 PM [facility] Protein Total 8.0 6.4 - 8.2 gm/dL 09/14/2015 9:56 PM [facility] Albumin 4.2 3.4 - 5.0 gm/dL 09/14/2015 9:56 PM [facility] Bilirubin Total 0.5 0.2 - 1.0 mg/dL 09/14/2015 9:56 PM [facility] eGFR by MDRD >60 >60 mL/min/1.7 3m2 09/14/2015 9:56 PM [facility] eGFR by MDRD >60 >60 mL/min/1.7 3m2 09/14/2015 9:56 PM [facility] Blood BLOOD SPECIMEN / Unknown 09/14/2015 9:38 PM ACCOUNTING TECHNICIAN 09/14/2015 9:38 PM [facility] Jhon Villasenor DO LAB - CHEMISTRY ORD ERABLES [facility] [address] [place] [address] from Last 3 Months or Most Recently Relevant to Health Maintenance Care Teams Technical Project Manager Relationship Specialty Start Date End Date None, Physician [address] [place] [address] PCP - General 04/28/23 Nicola Martinez MD [address] [place] [address] Family Medicine 04/22/21
--- OUTSIDE RECORDS SUMMARY | 2024-07-12 23:51 | XMS_ITS | Encounter Summary ---
Author Organization [facility] Address [address] [facility] [address] [facility] [place] [address] Care Team Providers Care Continuous Process Tanner Rotary Drum Name Role Phone Kunal Davis MD Primary Care Provider [phone] Nicola Martinez MD Unavailable [phone] Encounter Details Date Type Department Care Team (Latest Contact Info) Description 04/27/2023 Travel Social History Tobacco Use Types Packs/Day Years Used Date Smoking Tobacco: Never Assessed Sex and Gender Information Value Date Recorded Sex Assigned at Not on file Gender Identity Not on file Sexual Orientation Not on file documented as of this encounter Plan of Treatment Not on file documented as of this encounter Visit Diagnoses Not on filedocumented in this encounter Care Teams Continuous Process Tanner Rotary Drum Relationship Specialty Start Date End Date Kunal Davis MD [address] [facility] [address] [place] [phone] PCP - General 04/22/21 04/27/23 Nicola Martinez MD [address] [place] [address] Family Medicine 04/22/21 documented as of this encounter
--- OUTSIDE RECORDS SUMMARY | 2024-07-12 23:51 | XMS_ITS | Encounter Summary ---
Author Organization [facility] Address [address] [place] [address] Care Team Providers Care Wet Pan Mixer Name Role Phone Nicola Martinez MD Primary Care Provider [phone] Reason for Visit * Reason Comments Pain Head pain started in the back of her head around 2100. also reports having a headache this morning. reports having numbness and tingling in arms and face. equal, symmetrical movements. NIH 0 during triage HYPERVENTILATING anxious, rapid breat josé miguel and crying during triage Encounter Details Date Type Department Care Team (Late st Contact Info) Description 09/14/2015 9:19 PM 3RD PRESSMAN - 09/14/2015 11:09 PM 3RD PRESSMAN Emergency ER at [address] [address] Occipital headache Discharge Disposition: Home or Self Care Social History Tobacco Use Types Packs/Day Years Used Date Smoking Tobacco: Never Assessed Sex and Gender Information Value Date Recorded Sex Assigned at Not on file Gender Identity Not on file Sexual Orientation Not on file documented as of this encounter Last Filed Vital Signs Vital Sign Reading Time Taken Comments Blood Pressure 132/74 09/14/2015 10:45 PM 3RD PRESSMAN Pulse 66 09/14/2015 10:45 PM 3RD PRESSMAN Temperature 36.8 ??C (98.3 ??F) 09/14/2015 9:24 PM CS T Respiratory Rate 13 09/14/2015 10:45 PM 3RD PRESSMAN Oxygen Saturation 99% 09/14/2015 10:45 PM 3RD PRESSMAN Inhaled Oxygen Concentration - - Weight - - Height 162.6 cm (5' 4.02 ) 09/14/2015 9:24 PM CS T Body Mass Index - - documented in this encounter Discharge Instructions * Discharge Instructions* Rachel Gastelum PA - 09/14/2015 10:48 PM 3RD PRESSMAN Images from the original note were not included. General Headache Without Cause A headache is pain or discomfort felt around the head or neck area. The specific cause of a headache may not be found. There are many causes and types of headaches. A few common ones are: ?? Tension headaches. ?? Migraine headaches. ?? Cluster headaches. ?? Chronic daily headaches. HOME CARE INSTRUCTIONS ?? Keep all follow-up appointments with your caregiver or any specialist referral. ?? Only take ktsy-urp-[id number] or prescription medicines for pain or discomfort as directed by your caregiver. ?? Lie down in a dark, quiet room when you have a headache. ?? Keep a headache journal to find out what may trigger your migraine headaches. For example, [place]: ?? What you eat and drink. ?? How much sleep you get. ?? Any change to your diet or medicines. ?? Try massage or other relaxation techniques. ?? Put ice packs or heat on the head and neck. Use these 3 to 4 times per day for 15 to 20 minutes each time, or as needed. ?? Limit stress. ?? Sit up straight, and do not tense your muscles. ?? Quit smoking if you smoke. ?? Limit alcohol use. ?? Decrease the amount of caffeine you drink, or stop drinking caffeine. ?? Eat and sleep on a regular schedule. ?? Get 7 to 9 hours of sleep, or as recommended by your caregiver. ?? Keep lights dim if bright lights bother you and make your headaches worse. SEEK MEDICAL CARE IF: ?? You have problems with the medicines you were prescribed. ?? Your medicines are not working. ?? You have a change from the usual headache. ?? You have nausea or vomiting. SEEK IMMEDIATE MEDICAL CARE IF: ?? Your headache becomes severe. ?? You have a fever. ?? You have a stiff neck. ?? You have loss of vision. ?? You have muscular weakness or loss of muscle control. ?? You start losing your balance or have trouble walking. ?? You feel faint or pass out. ?? You have severe symptoms that are different from your first symptoms. MAKE SURE YOU: ?? Understand these instructions. ?? Will watch your condition. ?? Will get help right away if you are not doing well or get worse. Document Released: 07/11/2006 Document Revised: 10/02/2012 Document Reviewed: 07/26/2012 ExitCare?? Patient Information ??2013 [employer]. 3RD PRESSMAN documented in this encounter ED Notes * Yarelis To RN - 09/14/2015 11:09 PM CST Pt discharged to home with family as ride. Pt and family verbalized understanding of discharge instructions. Pt taken in wheelchair out of ED with no issues. 3RD PRESSMAN * Yarelis To RN - 09/14/2015 10:13 PM CST Pt states headache is relieved to now just a throbbing pain, 02 sat dropped to 80's relieved with taking a deep breath, pt placed on 2L nasal cannula to help while trying to sleep. Jennifer at bedside. 3RD PRESSMAN * Yarelis To RN - 09/14/2015 9:46 PM CST Pt came in c/o numbness in her arms and face, the worst fing headache of her life and numbness in her face. Pt NIH is 0 on arrival. States that her face feels numb and tingling from the nose downand bilateral arms but able to feel light and hard touch the same on both sides. Pt then states shehas had R arm weakness and pain? But not really painful for a month. It Program Manager strong and push pull strong on both sides. No neuro deficits noted at this time. Pt has no vision changes but states the lights hurt her eyes. Mother at bedside, labs sent, EKG complete and pt in CT. DAMION Gastelum already in to see pt. 3RD PRESSMAN * Yarelis To RN - 09/14/2015 9:45 PM CST Pt taken for CT at this time. 3RD PRESSMAN * Rachel Gastelum PA - 09/14/2015 9:20 PM CST Provider contact with the patient: 09/14/2015 21:20 Briseyda Boyle [id number] [facility] EMERGENCY DEPARTMENT History Chief Complaint Patient presents with ??? Pain Head pain started in the back of her head around 2100. also reports having a headache this morning. reports having numbness and tingling in arms and face. equal, symmetrical movements. NIH 0 during triage ??? 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 Pt states that she had STOVER on Tuesday and this morning that had since resolved. She was at [facility] and acute onset throbbing intense 10/10 pain in back of head with associated tingling on bilateral frontal lower half of face and bilateral arms. Describes as feeling worms on her arms. Pt states that over the past month she has had pain and weakness in her RUE. Pt had hx of hormonal migraine STOVER in the past but has not had one in 3 years since she has gone through menopause. Headache The history is provided by the patient and friend. This is a new problem. Episode onset: 1 hour ago. The problem occurs constantly. The problem has not changed since onset.The headache is aggravated by nothing. The pain is located in the occipital region. The quality of the pain is described as throbbing. The pain is at a severity of 10/10. Pertinent negatives include no fever, no malaise/fatigue, no near-syncope and no syncope. She has tried nothing for the symptoms. Stroke TIA The history is provided by the patient and friend. The time course is sudden.The problem has not changed since onset.The primary symptoms include paresthesias.The primary symptoms do not include no altered mental status, no confusion, no unresponsiveness, no speech difficulty, no ataxia, no difficulty standing/walking, no falling, no weakness, no facial droop, no right arm weakness, no right leg weakness, no left arm weakness or no left leg weakness.Medications taken prior to arrival were none.Associated symptoms include headaches. NIH Stroke Scale NIH Stroke Scale Score: Level of Consciousness 0= Alert, LOC Questions:0= Answers both, LOC Commands:0= Performs both tasks, Best Gaze: 0= Normal, Visual: 0= Normal, Facial Palsy: 0= Normal, Motor Arm-Left: 0= Normal, Motor Arm-Right: 0= Normal, Motor Leg-Left: 0= Normal, Motor Leg-Right: 0= Normal, Limb Ataxia: 0= Absent, Sensory: 0= Normal, Best Language: 0= Normal, Dysarthria: 0= Normal, Extinction and Inattention: 0= Normal, No past medical history on file. No past surgical history on file. No family history on file. History Social History ??? Marital Status: Single Spouse Name: N/A Number of Children: N/A ??? Years of Education: N/A Occupational History ??? Not on file. Social History Main Topics ??? Smoking status: Not on file ??? Smokeless tobacco: Not on file ??? Alcohol Use: Not on file ??? Drug Use: Not on file ??? Sexual Activity: Not on file Other Topics Concern ??? Not on file Social History Narrative ??? No narrative on file Review of Systems Review of Systems Constitutional: Negative. Negative for fever and malaise/fatigue. Eyes: Negative. Negative for blurred vision and double vision. Respiratory: Negative. Cardiovascular: Negative. Negative for syncope and near-syncope. Gastrointestinal: Negative. Genitourinary: Negative. Musculoskeletal: Negative. Skin: Negative. Neurological: Positive for headaches and paresthesias. Negative for speech difficulty and weakness. See hpi Psychiatric/Behavioral: Negative. Negative for confusion. All other systems reviewed and are negative. Physical Exam Patient Vitals for the past 6 hrs: Temp Pulse Resp BP 09/14/15 2207 - 90 20 124/83 mmHg 09/14/15 2200 - 90 16 122/93 mmHg 09/14/15 2124 98.3 ??F 96 18 164/94 mmHg Physical Exam Constitutional: She is oriented to person, place, and time. She appears well- developed and well-nourished. Appears uncomfortable HENT: Head: Normocephalic and atraumatic. Right Ear: External ear normal. Left Ear: External ear normal. Nose: Nose normal. Mouth/Throat: Oropharynx is clear and moist. Eyes: Conjunctivae and EOM are normal. Pupils are equal, round, and reactive to light. Neck: Normal range of motion. Neck supple. Cardiovascular: Normal rate, regular rhythm, normal heart sounds and intact distal pulses. Pulmonary/Chest: Effort normal and breath sounds normal. Abdominal: Soft. Bowel sounds are normal. Musculoskeletal: Normal range of motion. Neurological: She is alert and oriented to person, place, and time. She has normal strength. No cranial nerve deficit or sensory deficit. Coordination normal. GCS eye subscore is 4. GCS verbal subscore is 5. GCS motor subscore is 6. NIH score 0 Skin: Skin is warm and dry. Psychiatric: She has a normal mood and affect. Her behavior is normal. Judgment and thought contentnormal. Nursing note and vitals reviewed. Medications No current outpatient prescriptions on file. Procedures Procedures ECG Interpretation Date/Time: 09/14/2015 9:43 PM Interpreted by ED provider Comparison: not compared with previous ECG Previous ECG: no previous ECG available Rhythm: sinus rhythm Rate: normal BPM: 80 T inversion: V1 and V2 Clinical impression: non-specific ECG ECG Rhythm Interpretation Lab/SPO2 Interpretation Hospital Encounter on 09/14/15 CBC W AUTO DIFFERENTIAL Result Value Ref Range WBC 9.2 4.4-10.7 x10^9/L WBC Corrected x10^9/L RBC 4.69 3.80-5.20 x10^12/L Hgb 13.5 12.0-15.6 gm/dL HCT 39.9 35.9-45.5 % MCV 85.1 80.7-98.3 fl MCH 28.8 26.7-34.0 pg MCHC 33.8 30.8-35.9 gm/dL Plt Ct 274 153-416 x10^9/L RDW-CV 12.5 12.1-14.9 % MPV 10.4 9.4-12.9 fl Neutro 47.1 44.0-73.0 % Lymph 44.1 (H) 20.0-43.0 % Dolores 6.0 5.0-13.0 % Eos 1.9 0.0-6.0 % Baso 0.7 0.0-2.0 % Immature Grans 0.2 0-1 % Neutro Abs 4.33 2.01-7.14 x10^9/L Lymph Abs 4.04 (H) 1.07-3.94 x10^9/L Dolores Abs 0.55 0.26-1.07 x10^9/L Eosin Abs 0.17 0-0.47 x10^9/L Baso Abs 0.06 0-0.08 x10^9/L Immature Grans (Abs) 0.02 0.00-0.06 x10^9/L NRBC Auto 0 /100 WBC COMPREHENSIVE METABOLIC PANEL Result Value Ref Range Glucose 119 (H) 74-106 mg/dL Sodium 138 136-145 mmol/L Potassium 3.7 3.5-5.1 mmol/L Chloride 103 98-107 mmol/L CO2 24 22-31 mmol/L Calcium 9.2 8.5-10.1 mg/dL Anion Gap 11 5-20 mmol/L BUN 19 7-21 mg/dL Creatinine 0.90 0.50-1.30 mg/dL Alk Phos 57 38-126 U/L ALT/SGPT 22 12-78 U/L AST/SGOT 15 5-40 U/L Protein Total 8.0 6.4-8.2 gm/dL Albumin 4.2 3.4-5.0 gm/dL Bili Total 0.5 0.2-1.0 mg/dL eGFR MDRD >60 >60 mL/min/1.73m2 eGFR MDRD AFR AMR >60 >60 mL/min/1.73m2 MAGNESIUM BLOOD Result Value Ref Range Magnesium mg/dL 2.2 1.6-2.6 mg/dL PT PTT PANEL Result Value Ref Range PT 10.2 9.5-11.6 sec INR 1.0 0.9-1.1 PTT 24.3 21.0-32.[address] HEAD NON CONTRAST Preliminary Result [place]: No acute intracranial hemorrhage, mass, or midline shift appreciated. No acute skull fractures. Presumably top-normal ventricular system for age. Slight volume loss. Scattered minor paranasal sinus disease. Progress Notes I re-evaluated the patient???s medical condition, comfort, and provided a care update. Pt pain and tingling improved, feeling much better. D/w pt and friend CT results but concern for SAH given her presentation and that a small percentagecan be missed on CT. We recommended lumbar puncture in ED but pt refuses stating she feels better and her friend will observe her. Pt understands risks of missing SAH including permanent disability and . Friend at bedside also voiced understanding. Refusal of procedure form signed by patient. ED Course Medical Decision Making I have reviewed the: Nursing Notes and Vitals. I have interpreted the following results: Labs, CT Scans and Oxygen Saturation. Orders Placed This Encounter ??? CT HEAD NON CONTRAST ??? CBC W AUTO DIFFERENTIAL ??? COMPREHENSIVE METABOLIC PANEL ??? MAGNESIUM BLOOD ??? PT PTT PANEL ??? CONSULT TO M60A2 ARMOR CREWMAN ??? OXYGEN ??? EKG 12-LEAD ??? 0.9% NaCl injection 1-10 mL ??? 0.9% NaCl infusion ??? morphine injection 4 mg ??? diphenhydrAMINE (BENADRYL) injection 25 mg ??? prochlorperazine (COMPAZINE) injection 10 mg ??? lidocaine (XYLOCAINE MPF) 1 % injection Rx: New Prescriptions No medications on file Follow Up: Nicola Martinez MD [address] [place] [address] [place] [address] Schedule an appointment as soon as possible for a visit in 2 days Discharged I had a formal disposition interview with the patient/family to discuss the ED visit and disposition plan. Clinical Impression Final diagnoses: Acute intractable headache, unspecified headache type Occipital headache Plan: home, rest, headache instructions, f/u with pmd and rted if worse 3RD PRESSMAN Associated attestation - Jeannie Banks MD - 09/14/2015 11:46 PM 3RD PRESSMAN 09/14/2015 23:46 For this patient encounter, I reviewed the STIFF NECK LOADER or PA documentation, procedures (if done), treatment plan, and medical decision making; and I had xusi-mi-zawg time with this patient. I have conducted an independent evaluation of this patient including a focused history of sudden onset of sharp STOVER- posterior head and neck- and a physical exam revealing alert, no distress. My exam is after pain meds. Neck is supple. Discussed plan for LP- reviewed reasoning, risk/benefit - which are in concordance with the STIFF NECK LOADER/PA documentation except as otherwise noted. documented in this encounter Plan of Treatment Not on file documented as of this encounter Procedures Procedure Name Priority Date/Time Associated Diagnosis Comments CT HEAD WO CONTRAST STAT 09/14/2015 1 0:00 PM 3RD PRESSMAN Acute intractable headache, unspecified headache type EKG 12-LEAD STAT 09/14/2015 9:43 PM 3RD PRESSMAN Acute intractable headache, unspecified headache type PT PTT PANEL STAT 09/14/2015 9:38 PM 3RD PRESSMAN CBC W AUTO DIFFERENTIAL STAT 09/14/2015 9:38 PM 3RD PRESSMAN COMPREHENSIVE METABOLIC PANEL STAT 09/14/2015 9:38 PM 3RD PRESSMAN MAGNESIUM BLOOD STAT 09/14/2015 9:38 PM 3RD PRESSMAN OXYGEN STAT 09/14/2015 9:27 PM 3RD PRESSMAN documented in this encounter Results * CT HEAD NON CONTRAST (09/14/2015 10:00 PM 3RD PRESSMAN) Anatomical Region Laterality Modality Head Computed Tomogra phy 09/15/2015 6:37 AM 3RD PRESSMAN Impressions 09/15/2015 6:40 AM 3RD PRESSMAN No acute intracranial findings on non- contrast CT of the head. Narrative 09/15/2015 6:[address] brain without contrast. HISTORY: Headache Technique: Standard noncontrast CT scan of the brain. Findings: No intracranial bleed, mass, or stroke. The visualized paranasal sinuses are clear. The mastoid air cells are clear. No skull fracture is seen. Procedure Note Nino Macias MD - 09/15/2015 CT brain without contrast. HISTORY: Headache Technique: Standard noncontrast CT scan of the brain. Findings: No intracranial bleed, mass, or stroke. The visualized paranasal sinuses are clear. The mastoid air cells are clear. No skull fracture is seen. IMPRESSION No acute intracranial findings on non- contrast CT of the head. Jhon Villasenor DO CT ORDERABLES * EKG 12-LEAD (09/14/2015 9:43 PM 3RD PRESSMAN) Ventricular Rate 80 BPM [facility] Atrial Rate 80 BPM [facility] P-R Interval 116 ms [facility] QRS Duration ms 74 ms [facility] Q-T Interval ms 376 ms [facility] QTC Calculation (Bezet) 433 ms [facility] Calculated P [place] 51 degrees [facility] Calculated R [place] 49 degrees [facility] Calculated T [place] 46 degrees [facility] Interpretation EKG Normal sinus rhythm Nonspecific ST and T wave abnormality Abnormal ECG No previous ECGs available Confirmed by RICHARDSON HANNA FLOR ([id number]) on 09/15/2015 10:23:35 AM [facility] 09/14/2015 9:43 PM 3RD PRESSMAN 09/15/2015 10:23 AM [facility] Jhon Villasenor DO ECG ORDERABLES Performing Organization Address [facility] Co de Phone Number [facility] * PT PTT PANEL (09/14/2015 9:38 PM 3RD PRESSMAN) Pathologist [facility] PT 10.2 9.5 - 11.6 sec 09/14/2015 10:04 PM [facility] INR 1.0 0.9 - 1.1 09/14/2015 10:04 PM [facility] PTT 24.3 21.0 - 32.0 sec 09/14/2015 10:04 PM [facility] Blood BLOOD SPECIMEN / Unknown 09/14/2015 9:38 PM 3RD PRESSMAN 09/14/2015 9:39 PM [facility] Narrative [facility] - 09/14/2015 10:04 PM [facility] Conventional Warfarin Anticoagulant Therapy: INR Reference Range: ??2.0-3.0 Intensive Warfarin Anticoagulant Therapy: INR Reference Range: ? 2.5-3.5 Heparin Therapeutic Range for PTT: 44.4 - 78.3 seconds. Jhon Villasenor DO LAB - COAGULATION O RDERABLES Performing Organization Address [facility] Co de Phone Number [facility] [address] [place] [address] * MAGNESIUM BLOOD (09/14/2015 9:38 PM 3RD PRESSMAN) Magnesium 2.2 1.6 - 2.6 mg/dL 09/14/2015 9:56 PM [facility] Blood BLOOD SPECIMEN / Unknown 09/14/2015 9:38 PM 3RD PRESSMAN 09/14/2015 9:38 PM [facility] Jhon Dockery Jacklyn SNYDER LAB - CHEMISTRY ORD ERABLES [facility] [address] [place] [address] * (ABNORMAL) COMPREHENSIVE METABOLIC PANEL (09/14/2015 9:38 PM [facility]) Glucose 119(H) 74 - 106 mg/dL 09/14/2015 9:56 PM [facility] Sodium 138 136 - 145 mmol/L 09/14/2015 9:56 PM [facility] Potassium 3.7 3.5 - 5.1 mmol/L 09/14/2015 9:56 PM [facility] Chloride 103 98 - 107 mmol/L 09/14/2015 9:56 PM [facility] CO2 24 22 - 31 mmol/L 09/14/2015 9:56 PM [facility] Calcium 9.2 8.5 - 10.1 mg/dL 09/14/2015 9:56 PM [facility] Anion Gap 11 5 - 20 mmol/L 09/14/2015 9:56 PM [facility] BUN 19 7 - 21 mg/dL 09/14/2015 9:56 PM [facility] Creatinine 0.90 0.50 - 1.30 mg/dL 09/14/2015 9:56 PM [facility] Alkaline Phosphatase 57 38 - 126 U/L 09/14/2015 9:56 PM [facility] ALT 22 12 - 78 U/L 09/14/2015 9:56 PM [facility] AST 15 5 - 40 U/L 09/14/2015 9:56 PM [facility] Protein Total 8.0 6.4 - 8.2 gm/dL 09/14/2015 9:56 PM [facility] Albumin 4.2 3.4 - 5.0 gm/dL 09/14/2015 9:56 PM [facility] Bilirubin Total 0.5 0.2 - 1.0 mg/dL 09/14/2015 9:56 PM [facility] eGFR by MDRD >60 >60 mL/min/1.7 3m2 09/14/2015 9:56 PM [facility] eGFR by MDRD >60 >60 mL/min/1.7 3m2 09/14/2015 9:56 PM [facility] Blood BLOOD SPECIMEN / Unknown 09/14/2015 9:38 PM 3RD PRESSMAN 09/14/2015 9:38 PM 3RD PRESSMAN Jhon Villasenor DO LAB - CHEMISTRY ORD ERABLES [facility] [address] [place] [address] * (ABNORMAL) CBC W AUTO DIFFERENTIAL (09/14/2015 9:38 PM [facility]) WBC 9.2 4.4 - 10.7 x10^9/L 09/14/2015 9:41 PM [facility] WBC Corrected x10^9/L 09/14/2015 9:41 PM [facility] RBC 4.69 3.80 - 5.20 x10^12/L 09/14/2015 9:41 PM [facility] Hemoglobin 13.5 12.0 - 15.6 gm/dL 09/14/2015 9:41 PM [facility] Hematocrit 39.9 35.9 - 45.5 % 09/14/2015 9:41 PM [facility] MCV 85.1 80.7 - 98.3 fl 09/14/2015 9:41 PM [facility] MCH 28.8 26.7 - 34.0 pg 09/14/2015 9:41 PM [facility] MCHC 33.8 30.8 - 35.9 gm/dL 09/14/2015 9:41 PM [facility] Platelet Count 274 153 - 416 x10^9/L 09/14/2015 9:41 PM [facility] RDW-CV 12.5 12.1 - 14.9 % 09/14/2015 9:41 PM [facility] MPV 10.4 9.4 - 12.9 fl 09/14/2015 9:41 PM [facility] Neutrophils % 47.1 44.0 - 73.0 % 09/14/2015 9:41 PM [facility] Lymphocytes % 44.1(H) 20.0 - 43.0 % 09/14/2015 9:41 PM [facility] Monocytes % 6.0 5.0 - 13.0 % 09/14/2015 9:41 PM [facility] Eosinophils % 1.9 0.0 - 6.0 % 09/14/2015 9:41 PM [facility] Basophils % 0.7 0.0 - 2.0 % 09/14/2015 9:41 PM [facility] Immature Granulocytes 0.2 0 - 1 % 09/14/2015 9:41 PM [facility] Neutrophil Absolute 4.33 2.01 - 7.14 x10^9/L 09/14/2015 9:41 PM [facility] Lymphocytes Absolute 4.04(H) 1.07 - 3.94 x10^9/L 09/14/2015 9:41 PM [facility] Monocytes Absolute 0.55 0.26 - 1.07 x10^9/L 09/14/2015 9:41 PM [facility] Eosinophils Absolute 0.17 0 - 0.47 x10^9/L 09/14/2015 9:41 PM [facility] Basophils Absolute 0.06 0 - 0.08 x10^9/L 09/14/2015 9:41 PM [facility] Immature Granulocytes Absolute 0.02 0.00 - 0.06 x10^9/L 09/14/2015 9:41 PM [facility] nRBC Auto 0 /100 WBC 09/14/2015 9:41 PM [facility] Blood BLOOD SPECIMEN / Unknown 09/14/2015 9:38 PM 3RD PRESSMAN 09/14/2015 9:38 PM [facility] Jhon Villasenor DO LAB - HEMATOLOGY OR DERABLES [facility] [address] [place] [address] documented in this encounter Visit Diagnoses Diagnosis Acute intractable headache, unspecified headache type Occipital headache Headache documented in this encounter Administered Medications Inactive Administered Medications - up to 3 most recent administrations Medication Order MAR Action Action Date Dose Rate Site 0.9% NaCl infusion at 50 mL/hr, Intravenous, CONTINUOUS, Starting on 09/14/15 at 2200, Until Tue09/15/15 at 0010 $ New Bag/Syringe 09/14/2015 10:22 PM 3RD PRESSMAN 50 mL/hr 50 mL/hr 0.9% NaCl injection 1-10 mL 1-10 mL, Intracatheter, PRN, Other, Starting on 09/14/15 at 2126, Until Tue09/15/15 at 0010 $ Given 09/14/2015 10:08 PM 3RD PRESSMAN 10 mL diphenhydrAMINE (BENADRYL) injection 25 mg 25 mg, Intravenous, NOW, 1 dose, On 09/14/15 at 2145, Max intravenous rate = 25 mg/min $ Given 09/14/2015 10:01 PM 3RD PRESSMAN 25 mg morphine injection 4 mg 4 mg, Intravenous, NOW, 1 dose, On 09/14/15 at 2145 $ Given 09/14/2015 10:02 PM 3RD PRESSMAN 4 mg prochlorperazine (COMPAZINE) injection 10 mg 10 mg, Intravenous, NOW, 1 dose, On 09/14/15 at 2145, Max intravenous rate = 5 mg/min $ Given 09/14/2015 10:00 PM 3RD PRESSMAN 10 mg documented in this encounter Active and Recently Administered Medications Times are shown in 3RD PRESSMAN. Scheduled Medication Order 09/12/2015 09/13/2015 09/14/2015 diphenhydrAMINE (BENADRYL) injection 25 mg (COMPLETED) 25 mg, Intravenous, NOW, 1 dose, On 09/14/15 at 2145, Max intravenous rate = 25 mg/min 2200 ($ Given - Prov ider: Yarelis To, RN) morphine injection 4 mg (COMPLETED) 4 mg, Intravenous, NOW, 1 dose, On 09/14/15 at 2145 220 ($ Given - Prov ider: Yarelis To, RN) prochlorperazine (COMPAZINE) injection 10 mg (COMPLETED) 10 mg, Intravenous, NOW, 1 dose, On 09/14/15 at 2145, Max intravenous rate = 5 mg/min 220 ($ Given - Prov ider: Yarelis To, RN) Continuous Medication Order 09/12/2015 09/13/2015 09/14/2015 0.9% NaCl infusion (CANCELED) at 50 mL/hr, Intravenous, CONTINUOUS, Starting on Tue09/14/15 at 2200, Until Tue09/15/15 at 0010 2222 ($ New Bag/Syri nge - Provider: Yarelis To, RN) PRN Medication Order 09/12/2015 09/13/2015 09/14/2015 0.9% NaCl injection 1-10 mL (CANCELED) 1-10 mL, Intracatheter, PRN, Other, Starting on 09/14/15 at 2126, Until 09/15/15 at 0010 2208 ($ Given - Prov ider: Yarelis To RN) documented in this encounter Care Teams Wet Pan Mixer Relationship Specialty Start Date End Date Nicola Martinez MD [address] [place] [address] PCP - General Family Medicine 09/14/15 04/21/21 documented as of this encounter
--- OUTSIDE RECORDS SUMMARY | 2024-07-12 23:51 | XMS_ITS | Encounter Summary ---
Author Organization [facility] Address [address] [place] [address] Care Team Providers Care Docket Clerk Name Role Phone Nicola Martinez MD Unavailable [phone] None, Physician Primary Care Provider Unavailabl e Reason for Referral * Consultation (Routine) - Closed Specialty Diagnoses / Procedures Referred By Pam lim Referred To Contact Diagnoses Telangiectasia Enoc Melchor MD [address] [facility] [place] [address] Referral ID Status Reason Start Date Expiration Date V isits Requested Visits Authorized [id number] Closed Specialty Services Required 04/28/2023 04/27/2024 1 1 Reason for Visit * Reason Comments Establish Care Encounter Details Date Type Department Care Team (Latest Contact Info) Description 04/28/2023 8:45 AM CDT Office Visit [facility] - Vascular Surgery [address] [place] [address], [place] [id number] Enoc Melchor MD [address] [facility] [place] [address] Telangiectasia (Primary Dx) Social History Tobacco Use Types Packs/Day Years Used Date Smoking Tobacco: Never Assessed Tobacco Cessation:Counseling Given: No Sex and Gender Information Value Date [...] 04/28/2023 9:09 AM CD T Respiratory Rate - - Oxygen Saturation 98% 04/28/2023 9:09 AM CDT Inhaled Oxygen Concentration - - Weight 71.7 kg (158 lb) 04/28/2023 9:09 AM CDT Height 157.5 cm (5' 2 ) 04/28/2023 9:09 AM CDT Body Mass Index 28.9 04/28/2023 9:09 AM CDT documented in this encounter Progress Notes * Francisca Arteaga - 04/28/2023 4:15 PM CDT Patient unable to seen by Dr. Melchor, was scheduled to wrong provider. documented in this encounter Plan of Treatment Scheduled Referrals Name Type Priority Associated Diagnoses Order Schedule Referral to Dermatology Outpatient Referral Routine Telangiectasia 1 Occurrences starting 04/28/2023 until 04/28/2024 documented as of this encounter Visit Diagnoses Diagnosis Telangiectasia- Primary Other and unspecified capillary diseases documented in this encounter Care Teams Docket Clerk Relationship Specialty Start Date End Date None, Physician [address] [place] [address] PCP - General 04/28/23 Nicola Martinez MD [address] [place] [address] Family Medicine 04/22/21 documented as of this encounter
--- OUTSIDE RECORDS SUMMARY | 2024-07-12 23:51 | XMS_ITS | Encounter Summary ---
Author Organization [facility] Address [address] [place] [address]. [place], [place] [id number] [place] [id number] Care Team Providers Care Senior Tableau Developer Name Role Phone Brenton Vora MD Primary Care Provider [phone] Encounter Details Date Type Department Care Team (Latest Contact Info) Description 10/14/2022 Travel Social History Tobacco Use Types Packs/Day Years Used Date Smoking Tobacco: Never Smokeless Tobacco: Never Alcohol Use Standard Drinks/Week Comments Not Currently 0 (1 standard drink = 0.6 oz pur e alcohol) Comments No Sex and Gender Information Value Date Recorded Sex Assigned at Not on file Legal Sex Female 10:30 PM PROGRAM MGR Gender Identity Not on file Sexual Orientation Not on file COVID-19 Exposure Response Date Recorded In the last 10 days, have yo u been in contact with someone who was confirmed or suspected to have Coronavirus/COVID-19? No / Unsure 10/14/2022 1:37 PM CDT documented as of this encounter Plan of Treatment Not on file documented as of this encounter Visit Diagnoses Not on filedocumented in this encounter Care Teams Senior Tableau Developer Relationship Specialty Start Date End Date Brenton Vora MD [address] [place] [phone] PCP - General FAMILY PRACTICE 09/09/22 documented as of this encounter
--- OUTSIDE RECORDS SUMMARY | 2024-07-12 23:51 | XMS_ITS | Encounter Summary ---
Author Organization [facility] Address [address] [place] [address]. [place], [place] [id number] [place] [address] Care Team Providers Care Bingo Manager Name Role Phone Lu Grace Primary Care Provider [phone] Encounter Details Date Type Department Care Team (Latest Contact Info) Description 04/22/2022 4:00 PM CDT - 04/22/2022 11:59 PM CDT Hospital Encounter [facility] [address] [place] [address] Wilber Hamilton MD [address] [place] [address] Discharge Disposition: Home or Self Care (Routine Discharge) Social History Tobacco Use Types Packs/Day Years Used Date Smoking Tobacco: Never Smokeless Tobacco: Never Alcohol Use Standard Drinks/Week Comments Not Currently 0 (1 standard drink = 0.6 oz pur e alcohol) Comments No Sex and Gender Information Value Date Recorded Sex Assigned at Not on file Legal Sex Female 10:30 PM CHIEF RADIOLOGY Gender Identity Not on file Sexual Orientation Not on file COVID-19 Exposure Response Date Recorded In the last 10 days, have yo u been in contact with someone who was confirmed or suspected to have Coronavirus/COVID-19? No / Unsure 04/22/2022 4:04 PM CDT documented as of this encounter Medications at Time of Discharge atorvastatin 10 MG tablet Take 1 tablet (10 mg total) by mouth nightly at bedtime. 3 buPROPion XL 150 MG 24 hr tablet Take 150 mg by mouth daily. 02/14/2020 3 meloxicam (MOBIC) 15 MG tabletIndications:Os teoarthritis of left patellofemoral joint Take 1 tablet (15 mg total) by mouth daily. 30 tablet 2 04/22/2022 3 SUMAtriptan 100 MG tablet Take 1 [...] Procedure Name Priority Date/Time Associated Diagnosis Comments XR KNEE STAND AP MELCHOR ONLY Routine 04/22/2022 4:25 PM CDT Acute pain of left knee XR KNEE LT 2V Routine 04/22/2022 4:25 PM CDT Acute pain of left knee documented in this encounter Results * XR KNEE STAND AP MELCHOR ONLY (04/22/2022 4:25 PM CDT) Anatomical Region Laterality Modality Knee Radiographic Clare ging 04/24/2022 7:54 PM CDT Impressions 04/24/2022 7:56 PM CDT IMPRESSION: No acute findings. ??Mild patellofemoral arthritis on the left. Referred By: ?? Interpreted By: Enzo Gilmore MD, 04/24/2022 7:54 PM Narrative 04/24/2022 7:56 PM CDT Examination: Bilateral knees. Exam time: 1526 hours. Clinical history: Chronic left knee pain. Comparison: None. Technique: Bilateral weightbearing PA and sunrise and weightbearing lateral views on the left. Findings: No fracture, dislocation or other acute bony abnormality is identified. ??There are mild patellofemoral degenerative changes on the left manifested by joint space narrowing and patellar osteophyte formation. ??The femorotibial joint spaces appear preserved. ??No other significant bone or joint abnormality is noted. ??The soft tissues are unremarkable. Procedure Note Enzo Gilmore MD - 04/24/2022 Examination: Bilateral knees. Exam time: 1526 hours. Clinical history: Chronic left knee pain. Comparison: None. Technique: Bilateral weightbearing PA and sunrise and weightbearinglateral views on the left. Findings: No fracture, dislocation or other acute bony abnormality isidentified. There are mild patellofemoral degenerative changes on theleft manifested by joint space narrowing and patellar osteophyteformation. The femorotibial joint spaces appear preserved. No othersignificant bone or joint abnormality is noted. The soft tissues areunremarkable. IMPRESSION: No acute findings. Mild patellofemoral arthritis on the left. Referred By: Interpreted By: Enzo Gilmore MD, 04/24/2022 7:54 PM Wilber Hamilton MD GENERAL IMAGING Final Result * XR KNEE LT 2V (04/22/2022 4:25 PM CDT) Anatomical Region Laterality Modality Knee Radiographic Clare ging 04/24/2022 7:54 PM CDT Impressions 04/24/2022 7:56 PM CDT IMPRESSION: No acute findings. ??Mild patellofemoral arthritis on the left. Referred By: ?? Interpreted By: Enzo Gilmore MD, 04/24/2022 7:54 PM Narrative 04/24/2022 7:56 PM CDT Examination: Bilateral knees. Exam time: 1526 hours. Clinical history: Chronic left knee pain. Comparison: None. Technique: Bilateral weightbearing PA and sunrise and weightbearing lateral views on the left. Findings: No fracture, dislocation or other acute bony abnormality is identified. ??There are mild patellofemoral degenerative changes on the left manifested by joint space narrowing and patellar osteophyte formation. ??The femorotibial joint spaces appear preserved. ??No other significant bone or joint abnormality is noted. ??The soft tissues are unremarkable. Procedure Note Enzo Gilmore MD - 04/24/2022 Examination: Bilateral knees. Exam time: 1526 hours. Clinical history: Chronic left knee pain. Comparison: None. Technique: Bilateral weightbearing PA and sunrise and weightbearinglateral views on the left. Findings: No fracture, dislocation or other acute bony abnormality isidentified. There are mild patellofemoral degenerative changes on theleft manifested by joint space narrowing and patellar osteophyteformation. The femorotibial joint spaces appear preserved. No othersignificant bone or joint abnormality is noted. The soft tissues areunremarkable. IMPRESSION: No acute findings. Mild patellofemoral arthritis on the left. Referred By: Interpreted By: Enzo Gilmore MD, 04/24/2022 7:54 PM Wilber Hamilton MD GENERAL IMAGING Final Result documented in this encounter Visit Diagnoses Diagnosis Acute pain of left knee documented in this encounter Care Teams Bingo Manager Relationship Specialty Start Date End Date Lu Grace PA [address] [place] [address] PCP - General PHYSICIAN RETURNED MATERIALS INSPECTOR 04/19/20 09/08/22 documented as of this encounter
--- OUTSIDE RECORDS SUMMARY | 2024-07-12 23:51 | XMS_ITS | Encounter Summary ---
Author Organization [facility] Address [address] [place] [address]. [place], [place] [id number] [place] [address] Care Team Providers Care Carbon Cutter Name Role Phone Brenton Vora MD Primary Care Provider [phone] Encounter Details Date Type Department Care Team (Late st Contact Info) Description 05/17/2023 Orders Only [facility] [address] [address] Ann Marie Castro, [address] [place] [id number] Social History Tobacco Use Types Packs/Day Years Used Date Smoking Tobacco: Never Smokeless Tobacco: Never Alcohol Use Standard Drinks/Week Comments Not Currently 0 (1 standard drink = 0.6 oz pur e alcohol) Comments No Sex and Gender Information Value Date Recorded Sex Assigned at Not on file Legal Sex Female 10:30 PM SYSTEMS ARCHITECT Gender Identity Not on file Sexual Orientation Not on file documented as of this encounter Plan of Treatment Not on file documented as of this encounter Results * XR KNEE LT 2V (05/17/2023 4:43 PM CDT) Anatomical Region Laterality Modality Knee Radiographic Clare ging 05/18/2023 3:45 PM CDT Impressions 05/18/2023 3:46 PM CDT IMPRESSION: 1) Mild chronic changes of degenerative osteoarthritis medial and patellofemoral compartments left knee similar to previous study. Ordered By: ANN MARIE CASTRO Interpreted By: Edgar Bowles MD, 05/18/2023 3:45 PM Narrative 05/18/2023 3:46 PM CDT Examination: XR KNEE LT 2V, XR KNEE STAND AP MELCHOR ONLY Exam time: 05/17/2023 4:36 PM Clinical history: Chronic left knee pain Comparison: 04/22/2022 Technique: Standing PA flexion views of both knees, lateral and sunrise left knee Findings: No acute soft tissue abnormality. No evidence of significant joint effusion. No evidence of fracture or focal lytic bone destructive lesion. Mild chronic changes of degenerative osteoarthritis medial and patellofemoral compartments left knee similar to previous study. Procedure Note Edgar Bowles MD - 05/18/2023 Examination: XR KNEE LT 2V, XR KNEE STAND AP MELCHOR ONLY Exam time: 05/17/2023 4:36 PM Clinical history: Chronic left knee pain Comparison: 04/22/2022 Technique: Standing PA flexion views of both knees, lateral and sunriseleft knee Findings: No acute soft tissue abnormality. No evidence of significantjoint effusion. No evidence of fracture or focal lytic bone destructivelesion. Mild chronic changes of degenerative osteoarthritis medial andpatellofemoral compartments left knee similar to previous study. IMPRESSION: 1) Mild chronic changes of degenerative osteoarthritis medial andpatellofemoral compartments left knee similar to previous study. Ordered By: ANN MARIE CASTRO Interpreted By: Edgar Bowles MD, 05/18/2023 3:45 PM Ann Marie Castro OIL WELL SERVICE OPERATOR-BC GENERAL IMAGING Final Resu lt * XR KNEE STAND AP MELCHOR ONLY (05/17/2023 4:43 PM CDT) Anatomical Region Laterality Modality Knee Radiographic Clare ging 05/18/2023 3:45 PM CDT Impressions 05/18/2023 3:46 PM CDT IMPRESSION: 1) Mild chronic changes of degenerative osteoarthritis medial and patellofemoral compartments left knee similar to previous study. Ordered By: ANN MARIE CASTRO Interpreted By: Edgar Bowles MD, 05/18/2023 3:45 PM Narrative 05/18/2023 3:46 PM CDT Examination: XR KNEE LT 2V, XR KNEE STAND AP MELCHOR ONLY Exam time: 05/17/2023 4:36 PM Clinical history: Chronic left knee pain Comparison: 04/22/2022 Technique: Standing PA flexion views of both knees, lateral and sunrise left knee Findings: No acute soft tissue abnormality. No evidence of significant joint effusion. No evidence of fracture or focal lytic bone destructive lesion. Mild chronic changes of degenerative osteoarthritis medial and patellofemoral compartments left knee similar to previous study. Procedure Note Edgar Bowles MD - 05/18/2023 Examination: XR KNEE LT 2V, XR KNEE STAND AP MELCHOR ONLY Exam time: 05/17/2023 4:36 PM Clinical history: Chronic left knee pain Comparison: 04/22/2022 Technique: Standing PA flexion views of both knees, lateral and sunriseleft knee Findings: No acute soft tissue abnormality. No evidence of significantjoint effusion. No evidence of fracture or focal lytic bone destructivelesion. Mild chronic changes of degenerative osteoarthritis medial andpatellofemoral compartments left knee similar to previous study. IMPRESSION: 1) Mild chronic changes of degenerative osteoarthritis medial andpatellofemoral compartments left knee similar to previous study. Ordered By: ANN MARIE CASTRO Interpreted By: Edgar Bowles MD, 05/18/2023 3:45 PM Ann Marie Castro OIL WELL SERVICE OPERATOR-BC GENERAL IMAGING Final Resu lt documented in this encounter Visit Diagnoses Diagnosis Left knee pain, unspecified chronicity- Primary Left knee pain, unspecified chronicity documented in this encounter Care Teams Carbon Cutter Relationship Specialty Start Date End Date Brenton Vora MD [address] [place] [phone] PCP - General FAMILY PRACTICE 09/09/22 documented as of this encounter
--- OUTSIDE RECORDS SUMMARY | 2024-07-12 23:51 | XMS_ITS | Encounter Summary ---
Author Organization [facility] Address [address] [place] [address]. [place], [place] [id number] [place] [address] Care Team Providers Care Decay Control Operator Name Role Phone Brenton Vora MD Primary Care Provider [phone]- [phone] Reason for Visit * Reason Comments Injection LEFT knee Encounter Details Date Type Department Care Team (Late st Contact Info) Description 05/17/2023 4:30 PM [place] [address] Ann Marie Castro, [facility] [address] [facility] [address] Injection (LEFT knee) Social History Tobacco Use Types Packs/Day Years Used Date Smoking Tobacco: Never Smokeless Tobacco: Never Alcohol Use Standard Drinks/Week Comments Not Currently 0 (1 standard drink = 0.6 oz pur e alcohol) Comments No Sex and Gender Information Value Date Recorded Sex Assigned at Not on file Legal Sex Female 10:30 PM MEDIA OPERATOR Gender Identity Not on file Sexual Orientation Not on file documented as of this encounter Last Filed Vital Signs Vital Sign Reading Time Taken Comments Blood Pressure - - Pulse - - Temperature - - Respiratory Rate - - Oxygen Saturation - - Inhaled Oxygen Concentration - - Weight 70.3 kg (155 lb) 05/17/2023 4:24 PM CDT Height 160 cm (5' 3 ) 05/17/2023 4:24 PM CDT Body Mass Index 27.46 05/17/2023 4:24 PM CDT documented in this encounter Progress Notes * Agnes Mendes MA - 05/17/2023 4:30 PM CDT Briseyda is a 52-year-old female who presents for Injection (LEFT knee) Patient reports to office today for LEFT knee injection. Patient reports pain to entire knee. She denies numbness, tingling and bruising. She does report slight swelling. Patient reports pain worsenswith twisting . She reports some night pain interrupting her sleep. She does not use ice or heat. She is not using any ambulatory devices. Her lest injection was 10/14/2022 with good relief for seven months. 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 No additional nursing task documentation needed. Vitals: 05/17/23 1624 Weight: 70.3 kg (155 lb) Height: 1.6 m (5' 3 ) Current Outpatient Medications Medication Sig buPROPion XL (WELLBUTRIN XL) 300 MG 24 hr tablet Take 1 tablet (300 mg total) by mouth daily. busPIRone (BUSPAR) 15 MG tablet 1 tablet (15 mg total). meloxicam (MOBIC) 15 MG tablet Take 1 tablet (15 mg total) by mouth daily. Past Surgical History: Procedure Laterality Date CARPAL TUNNEL RELEASE KNEE SURGERY Allergies Succinylcholine [x] Total Qlid-bl-Uway Assessment Time: 0-15 minutes Additional Contributory Factors NONE * Ann Marie Castro, JUKE BOX MECHANIC-BC - 05/17/2023 4:30 PM CDT Chief Complaint: Injection (LEFT knee) History of Present Illness: Briseyda Boyle is a 52-year-old female who presents to the office for Injection (LEFT knee) Patient reports to office today for LEFT knee injection. Patient reports pain to entire knee. She denies numbness, tingling and bruising. She does report slight swelling. Patient reports pain worsenswith twisting . She reports some night pain interrupting her sleep. She does not use ice or heat. She is not using any ambulatory devices. Her lest injection was 10/14/2022 with good relief for seven months. 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 PREVIOUS HPI:10/14/2022 Patient previously received a LEFT knee joint injection on 04/22/22. She states good relief that lasted up until recently. She states pain will come and go. She has started going to the gym recently and believes that has increased soreness. She locates pain to lateral aspect of LEFT knee. She is taking Meloxicam and Tylenol PRN for pain with good relief. She is not using any assistive devices. PREVIOUS HPI: 04/22/2022 New patient in clinic today for pain in the LEFT knee. She states no injury. She locates pain to the lateral aspect of the LEFT knee with radiation down into the LEFT calf. She also locates a sharp stabbing pain in the medial aspect and just below the knee cap. She is having night pain. She is using Tylenol #3 for pain with relief. She states swelling noted to the LEFT knee. She states no numbness and tingling noted. 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 ROS: See HPI for pertinent positives Problem List: Patient Active Problem List Diagnosis Osteoarthritis of left patellofemoral joint History: Past Medical History: Diagnosis Date Anal fissure Migraines Vertigo Past Surgical History: Procedure Laterality Date CARPAL TUNNEL RELEASE KNEE SURGERY No family history on file. No family status information on file. Social History Socioeconomic History Marital status: Single Tobacco Use Smoking status: Never Smokeless tobacco: Never Vaping Use Vaping Use: Never used Substance and Sexual Activity Alcohol use: Not Currently Drug use: Not Currently Sexual activity: Not Currently Medications: Current Outpatient Medications: buPROPion XL (WELLBUTRIN XL) 300 MG 24 hr tablet, Take 1 tablet (300 mg total) by mouth daily., Disp: , Rfl: busPIRone (BUSPAR) 15 MG tablet, 1 tablet (15 mg total)., Disp: , Rfl: meloxicam (MOBIC) 15 MG tablet, Take 1 tablet (15 mg total) by mouth daily., Disp: 30 tablet, Rfl: 0 Review of patient's allergies indicates: Allergen Reactions Succinylcholine Unknown Objective: Body mass index is 27.46 kg/m??. Last Recorded Weight 05/17/23 1624 Weight: 70.3 kg (155 lb) Physical exam: Constitutional: Alert and in no acute distress. Neurological: The patient was oriented to person, place, and time. Eyes: The sclera and conjunctiva were normal ENT: Hearing was normal. Neck: The appearance of the neck was normal. Cardiovascular: Normal pulses. Pulmonary: No respiratory distress. Skin: No injuries or skin lesion. Musculoskeletal: EXAM of LEFT knee today reveals mild tenderness over medial joint line with palpation, no groin pain with hip rotation, minimal effusion, no redness or warmth, good knee range of motion, no increased pain with valgus or varus stress, antalgic gait, neurovascualrly intact. Results: XRAY of LEFT knee today reveals moderate medial and patellofemoral compartment space narrowing osteoarthritis with slightly lateral tracking patella and no acute or healing bony injury or dislocationappreciated. Procedure: Procedure: Injection of the Knee Joint on the left. Indications for the procedure include Osteoarthritis and Joint Pain. The procedure's were discussed with the patient. Verbal consent was obtained prior to the procedure. Procedure Note: Briseyda was prepped and draped in the usual sterile fashion using alcohol and using betadine. Anesthesia: Ethyl chloride spray was used as a topical anesthetic. A 22 gauge and 1.5 Inch needle was used to inject 8 mL lidocaine 1% and 1 mL methylprednisolone 80 mg/mL. Dressing: A bandage was applied. Post-Procedure: the patient tolerated the procedure well. Complications: there were no complications. Follow-up in the office prn. Assessment: Encounter Diagnose(s) ICD-10-CM SNOMED CT(R) 1. Osteoarthritis of left patellofemoral joint M17.12 OSTEOARTHRITIS OF LEFT PATELLOFEMORAL JOINT methylPREDNISolone acetate (DEPO-Medrol) injection 80 mg lidocaine (XYLOCAINE) 1 % injection SOLN 8 mL Plan: Reviewed imaging with patient in the office today. She had excellent relief for a decent amount of time with her last injection. She was given another injection in the office today. I did discuss with patient that given the amount of arthritis seen on imaging and she has already had 4 surgeries on her LEFT knee performing a knee arthroscopy probably would not provide her much relief in her symptoms. I also explained that since she had such good relief with the injection that her pain is from the arthritis verses something that is more acute in nature. She did voice understanding and would like to refrain from surgery if possible. Activity as tolerated. She is aware that she may receive injections every 3 months as needed for pain. She will follow up as needed. Follow up: Return if symptoms worsen or fail to improve. ANN MARIE CASTRO, JUKE BOX MECHANICWHIT documented in this encounter Plan of Treatment Not on file documented as of this encounter Visit Diagnoses Diagnosis Osteoarthritis of left patellofemoral joint- Primary documented in this encounter Administered Medications Inactive Administered Medications - up to 3 most recent administrations Medication Order MAR Action Action Date Dose Rate Site lidocaine (XYLOCAINE) 1 % injection SOLN 8 mL 8 mL, Other, Once, 1 dose, On Tue05/17/23 at 1715Indications:Osteoarthritis of left patellofemoral joint Given 05/17/2023 4:46 PM CDT 8 mLs Left Knee methylPREDNISolone acetate (DEPO-Medrol) injection 80 mg 80 mg, Other, Once, 1 dose, On Tue05/17/23 at 1715, [facility] WellIndications:Osteoarthritis of left patellofemoral joint Given 05/17/2023 4:46 PM CDT 80 mg Left Knee documented in this encounter Care Teams Decay Control Operator Relationship Specialty Start Date End Date Brenton Vora MD [address] [place] [phone] PCP - General FAMILY PRACTICE 09/09/22 documented as of this encounter
--- OUTSIDE RECORDS SUMMARY | 2024-07-12 23:51 | XMS_ITS | Encounter Summary ---
Author Organization [facility] Address [address] [place] [address]. [place], [place] [address] [place] [address] Care Team Providers Care Template Inspector Name Role Phone Brenton Vora MD Primary Care Provider [phone]- [phone] Encounter Details Date Type Department Care Team (Latest Contact Info) Description 05/17/2023 Travel Social History Tobacco Use Types Packs/Day Years Used Date Smoking Tobacco: Never Smokeless Tobacco: Never Alcohol Use Standard Drinks/Week Comments Not Currently 0 (1 standard drink = 0.6 oz pur e alcohol) Comments No Sex and Gender Information Value Date Recorded Sex Assigned at Not on file Legal Sex Female 10:30 PM PIANO REGULATOR Gender Identity Not on file Sexual Orientation Not on file documented as of this encounter Plan of Treatment Not on file documented as of this encounter Visit Diagnoses Not on filedocumented in this encounter Care Teams Template Inspector Relationship Specialty Start Date End Date Brenton Vora MD [address] [place] [phone] PCP - General FAMILY PRACTICE 09/09/22 documented as of this encounter
--- OUTSIDE RECORDS SUMMARY | 2024-07-12 23:51 | XMS_ITS | Encounter Summary ---
Author Organization [facility] Address [address] [place] [address]. [place], [place] [id number] [place] [address] Care Team Providers Care Road Sign Installer Name Role Phone Brenton Vora MD Primary Care Provider [phone]- [phone] Encounter Details Date Type Department Care Team (Latest Contact Info) Description 11/02/2023 Travel Social History Tobacco Use Types Packs/Day Years Used Date Smoking Tobacco: Never Smokeless Tobacco: Never Alcohol Use Standard Drinks/Week Comments Not Currently 0 (1 standard drink = 0.6 oz pur e alcohol) Comments No Sex and Gender Information Value Date Recorded Sex Assigned at Not on file Legal Sex Female 10:30 PM DIRECTOR MARKETING 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
--- OUTSIDE RECORDS SUMMARY | 2024-07-12 23:51 | XMS_ITS | Encounter Summary ---
Author Organization [facility] Address [address] [place] [address]. [place], [place] [address] [place] [address] Care Team Providers Care Barrel Burner Name Role Phone Brenton Vora MD Primary Care Provider [phone]- [phone] Reason for Visit * Reason Onset Date Comments Refill Request 05/24/2023 Encounter Details Date Type Department Care Team (Late st Contact Info) Description 05/24/2023 [place] [address] Charlotte Castro, [facility] [address] [facility] [address] Refill Request Social History Tobacco Use Types Packs/Day Years Used Date Smoking Tobacco: Never Smokeless Tobacco: Never Alcohol Use Standard Drinks/Week Comments Not Currently 0 (1 standard drink = 0.6 oz pur e alcohol) Comments No Sex and Gender Information Value Date Recorded Sex Assigned at Not on file 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 Advised her if she has any questions to return call. * Agnes Mendes MA - 05/24/2023 1:18 PM CDT Patient called requesting refill of Meloxicam, last filled on 04/15/2023. Last refill request stated patient should call PCP for refills however we were not able to contact the patient at that time. How would you like to proceed? * Agnes Mendes MA - 05/24/2023 1:18 PM CDT ----- Message from Jordan Foreman sent at 05/24/2023 10:08 AM CDT ----- Briseyda called in asking for a refill on her meloxicam. She uses [facility] and her number [phone] documented in this encounter Plan of Treatment Not on file documented as of this encounter Visit Diagnoses Not on filedocumented in this encounter Care Teams Barrel Burner Relationship Specialty Start Date End Date Brenton Vora MD [address] [place] [phone] PCP - General FAMILY PRACTICE 09/09/22 documented as of this encounter
--- OUTSIDE RECORDS SUMMARY | 2024-07-12 23:51 | XMS_ITS | Encounter Summary ---
Author Organization [facility] Address [address] [place] [address]. [place], [place] [id number] [place] [address] Care Team Providers Care Appraiser Land Name Role Phone Brenton Vora MD Primary Care Provider [phone]- [phone] Encounter Details Date Type Department Care Team (Late st Contact Info) Description 11/02/2023 [facility] Message Enc [address] [address] Charlotte Castro, [address] [place] [address] Visit Follow Up Social History Tobacco Use Types Packs/Day Years Used Date Smoking Tobacco: Never Smokeless Tobacco: Never Alcohol Use Standard Drinks/Week Comments Not Currently 0 (1 standard drink = 0.6 oz pur e alcohol) Comments No Sex and Gender Information Value Date Recorded Sex Assigned at Not on file Legal Sex Female 10:30 PM DIRECTOR HOSPICE OPERATIONS Gender Identity Not on file Sexual Orientation Not on file documented as of this encounter Plan of Treatment Not on file documented as of this encounter Visit Diagnoses Not on filedocumented in this encounter Care Teams Appraiser Land Relationship Specialty Start Date End Date Brenton Vora MD [address] [place] [phone] PCP - General FAMILY PRACTICE 09/09/22 documented as of this encounter
--- OUTSIDE RECORDS SUMMARY | 2024-07-12 23:51 | XMS_ITS | Clinical Summary ---
Author Organization [facility] Address [address] [place] [address]. [place], [place] [address] [place] [address] Care Team Providers Care B2B Appointment Setter Name Role Phone Brenton Vora MD Primary Care Provider [phone]- [phone] Allergies Active Allergy Reactions Criticality Noted Date Comments Succinylcholine Unknown 04/19/2020 Medications buPROPion XL (WELLBUTRIN XL) 300 MG 24 hr tablet Take 1 tablet (300 mg total) by mouth daily. 3 Active meloxicam (MOBIC) 15 MG tabletIndications:O steoarthritis of left patellofemoral joint Take 1 tablet (15 mg total) by mouth daily. 30 tablet 3 Active busPIRone (BUSPAR) 15 MG tablet 1 tablet (15 mg total). 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 Gender Identity Not on file Sexual Orientation Not on file Last Filed Vital Signs Vital Sign Reading Time Taken Comments Blood Pressure 124/83 12/03/2020 4:11 PM CDT Pulse 67 12/03/2020 4:11 PM CDT Temperature 35.8 ??C (96.4 ??F) 12/03/2020 2:05 PM CD T Respiratory Rate 16 12/03/2020 4:11 PM CDT Oxygen Saturation 100% 12/03/2020 4:11 PM CDT Inhaled Oxygen Concentration - - Weight 70.3 kg (155 lb) 11/02/2023 9:52 AM CDT Height 160 cm (5' 3 ) 11/02/2023 9:52 AM CDT Body Mass Index 27.46 11/02/2023 9:52 AM CDT Plan of Treatment Health Maintenance Due Date Last Done Comments Cervical Cancer Screening Pa p Smear (Age 30 to 64) Every 3 Years 1971 Colorectal Cancer Screening Colonoscopy (10 Years) 1971 Annual Physical 1974 Hepatitis C 1989 Hepatitis B Vaccines (1 of 3 - 19+ 3-dose series) 1990 Cervical Cancer Screening Pa p with HPV Testing (Age 30 to 64) Every 5 Years 2001 Cervical Cancer Screening wi th HPV 2001 Mammogram Screening 2011 Zoster Vaccines (1 of 2) 2021 COVID-19 Vaccine (3 - 2023-2 5 season) 2024 02/21/2021, 01/31/2021 Influenza Adult (#1) 2024 DTaP, Tdap and Td Vaccines ( 3 - Td or Tdap) 04/29/2027 04/29/2017, 01/20/2006 Meningococcal Vaccine Aged Out No zara selina eligible based on patient's age to complete this topic Pneumococcal Vaccine: Pediatrics (0 to 5 Years) and At-Risk Patients (6 to 64 Years) Aged Out No longer eligible b ased on patient's age to complete this topic RSV Immunizations Under 20 Months Aged Out No longer eligible b ased on patient's age to complete this topic Insurance [facility] [address] Care Teams B2B Appointment Setter Relationship Specialty Start Date End Date Brenton Vora MD [address] [place] [phone] PCP - General FAMILY PRACTICE 09/09/22
--- OUTSIDE RECORDS SUMMARY | 2024-07-12 23:51 | XMS_ITS | Encounter Summary ---
Author Organization [facility] Address [address] [place] [address] Care Team Providers Care Information Security Risk Analyst Name Role Phone Nicola Martinez MD Unavailable [phone] None, Physician Primary Care Provider Unavailnamrata e Encounter Details Date Type Department Care Team (Latest Contact Info) Description 09/13/2023 Travel Social History Tobacco Use Types Packs/Day Years Used Date Smoking Tobacco: Never Smokeless Tobacco: Never Sex and Gender Information Value Date Recorded Sex Assigned at Not on file Gender Identity Not on file Sexual Orientation Not on file documented as of this encounter Plan of Treatment Not on file documented as of this encounter Visit Diagnoses Not on filedocumented in this encounter Care Teams Information Security Risk Analyst Relationship Specialty Start Date End Date None, Physician [address] [place] [address] PCP - General 04/28/23 Nicola Martinez MD [address] [place] [address] Family Medicine 04/22/21 documented as of this encounter
--- OUTSIDE RECORDS SUMMARY | 2024-07-12 23:51 | XMS_ITS | Referral Summary ---
Author Organization [facility] Address [address] [place] [address] Care Team Providers Care Machine Shop Repair Technician Name Role Phone Nicola Martinez MD Unavailable [phone] None, Physician Primary Care Provider Unavailabl e Source Comments [facility],non-owned Affiliates and Associated Physician Practices is amultiple site organization consisting of ambulatory clinics and hospital sitesin [place], [place], [place] and [place]. This disclosure is being madepursuant to the Care Everywhere program and may not contain all information available regarding this patient. Last updated 18.[facility] Allergies Active Allergy Reactions Criticality Noted Date [...] T Respiratory Rate 13 09/14/2015 10:45 PM [facility] Oxygen Saturation 98% 04/28/2023 9:09 AM CDT Inhaled Oxygen Concentration - - Weight 71.7 kg (158 lb) 04/28/2023 9:09 AM CDT Height 157.5 cm (5' 2 ) 04/28/2023 9:09 AM CDT Body Mass Index 28.9 04/28/2023 9:09 AM CDT Plan of Treatment Not on file Procedures Procedure Name Priority Date/Time Associated Diagnosis Comments COMPREHENSIVE METABOLIC PANEL STAT 09/14/2015 9:38 PM RADIOLOGY NURSE from Last 3 Months or Most Recently Relevant to Health Maintenance Results * (ABNORMAL) COMPREHENSIVE METABOLIC PANEL (09/14/2015 9:38 PM RADIOLOGY NURSE) Glucose 119(H) 74 - 106 mg/dL 09/14/2015 9:56 PM [facility] Sodium 138 136 - 145 mmol/L 09/14/2015 9:56 PM [facility] Potassium 3.7 3.5 - 5.1 mmol/L 09/14/2015 9:56 PM [facility] Chloride 103 98 - 107 mmol/L 09/14/2015 9:56 PM [facility] CO2 24 22 - 31 mmol/L 09/14/2015 9:56 PM [facility] Calcium 9.2 8.5 - 10.1 mg/dL 09/14/2015 9:56 PM [facility] Anion Gap 11 5 - 20 mmol/L 09/14/2015 9:56 PM [facility] BUN 19 7 - 21 mg/dL 09/14/2015 9:56 PM [facility] Creatinine 0.90 0.50 - 1.30 mg/dL 09/14/2015 9:56 PM [facility] Alkaline Phosphatase 57 38 - 126 U/L 09/14/2015 9:56 PM [facility] ALT 22 12 - 78 U/L 09/14/2015 9:56 PM [facility] AST 15 5 - 40 U/L 09/14/2015 9:56 PM [facility] Protein Total 8.0 6.4 - 8.2 gm/dL 09/14/2015 9:56 PM RADIOLOGY NURSE [facility] Albumin 4.2 3.4 - 5.0 gm/dL 09/14/2015 9:56 PM RADIOLOGY NURSE [facility] Bilirubin Total 0.5 0.2 - 1.0 mg/dL 09/14/2015 9:56 PM RADIOLOGY NURSE [facility] eGFR by MDRD >60 >60 mL/min/1.7 3m2 09/14/2015 9:56 PM RADIOLOGY NURSE [facility] eGFR by MDRD >60 >60 mL/min/1.7 3m2 09/14/2015 9:56 PM RADIOLOGY NURSE [facility] Blood BLOOD SPECIMEN / Unknown 09/14/2015 9:38 PM RADIOLOGY NURSE 09/14/2015 9:38 PM RADIOLOGY NURSE Jhon Villasenor DO LAB - CHEMISTRY ORD ERABLES [facility] [address] [place] [address] from Last 3 Months or Most Recently Relevant to Health Maintenance Care Teams Machine Shop Repair Technician Relationship Specialty Start Date End Date None, Physician [address] [place] [address] PCP - General 04/28/23 Nicola Martinez MD [address] [place] [address] Family Medicine 04/22/21
--- OUTSIDE RECORDS SUMMARY | 2024-07-12 23:51 | XMS_ITS | Encounter Summary ---
Author Organization [facility] Address [address] [place] [address]. [place], [place] [id number] [place] [address] Care Team Providers Care [place] Actor Name Role Phone Brenton Vora MD Primary Care Provider [phone] Reason for Visit * Reason Onset Date Comments Medication Request 04/15/2023 Encounter Details Date Type Department Care Team (Late st Contact Info) Description 04/15/[address] [facility] [place] [address] Charlotte Castro, [facility]- [address] [facility] [place] [address] Medication Request Social History Tobacco Use Types Packs/Day Years Used Date Smoking Tobacco: Never Smokeless Tobacco: Never Alcohol Use Standard Drinks/Week Comments Not Currently 0 (1 standard drink = 0.6 oz pur e alcohol) Comments No Sex and Gender Information Value Date Recorded Sex Assigned at Not on file Legal Sex Female 10:30 PM FISHING GAME WARDEN Gender Identity Not on file Sexual Orientation Not on file documented as of this encounter Progress Notes * HILDA Lloyd - 04/15/2023 7:49 AM CDT Refill authorized but patient contact PCP for any future refills. RN attempted to notify patient, no answer left message. * HILDA Lloyd - 04/15/2023 7:48 AM CDT ----- Message from Kaylynn Ragland CNA sent at 04/15/2023 6:28 AM CDT ----- Patient left a message needing a refill on her Meloxicam. documented in this encounter Plan of Treatment Not on file documented as of this encounter Visit Diagnoses Diagnosis Osteoarthritis of left patellofemoral joint documented in this encounter Care Teams [place] Actor Relationship Specialty Start Date End Date Brenton Vora MD [address] [place] [phone] PCP - General FAMILY PRACTICE 09/09/22 documented as of this encounter
--- OUTSIDE RECORDS SUMMARY | 2024-07-12 23:51 | XMS_ITS | Encounter Summary ---
Author Organization [facility] - [facility] Address [address] [place] [address]. [place], [place] [address] [place] [address] Care Team Providers Care Solar Installer Technician Name Role Phone Brenton Vora MD Primary Care Provider [phone] Encounter Details Date Type Department Care Team (Latest Contact Info) Description 09/09/2022 Travel Social History Tobacco Use Types Packs/Day Years Used Date Smoking Tobacco: Never Smokeless Tobacco: Never Alcohol Use Standard Drinks/Week Comments Not Currently 0 (1 standard drink = 0.6 oz pur e alcohol) Comments No Sex and Gender Information Value Date Recorded Sex Assigned at Not on file Legal Sex Female 10:30 PM ALLERGY NURSE Gender Identity Not on file Sexual Orientation Not on file COVID-19 Exposure Response Date Recorded In the last 10 days, have yo u been in contact with someone who was confirmed or suspected to have Coronavirus/COVID-19? No / Unsure 09/09/2022 9:39 AM ALLERGY NURSE documented as of this encounter Plan of Treatment Not on file documented as of this encounter Visit Diagnoses Not on filedocumented in this encounter Care Teams Solar Installer Technician Relationship Specialty Start Date End Date Brenton Vora MD [address] [place] [phone] PCP - General FAMILY PRACTICE 09/09/22 documented as of this encounter
--- OUTSIDE RECORDS SUMMARY | 2024-07-12 23:51 | XMS_ITS | Encounter Summary ---
Author Organization [facility] Address [address] [place] [address]. [place], [place] [address] [place] [id number] Care Team Providers Care Fans Clerk Name Role Phone Lu Grace Primary Care Provider [phone] Reason for Visit * Reason Comments Knee Pain LEFT Encounter Details Date Type Department Care Team (Late st Contact Info) Description 04/22/2022 4:00 PM CDT Office [place] [address] Wilber Hamilton MD [address] [place] [address] Knee Pain (LEFT) Social History Tobacco Use Types Packs/Day Years Used Date Smoking Tobacco: Never Smokeless Tobacco: Never Alcohol Use Standard Drinks/Week Comments Not Currently 0 (1 standard drink = 0.6 oz pur e alcohol) Comments No Sex and Gender Information Value Date Recorded Sex Assigned at Not on file Legal Sex Female 10:30 PM ORAL THERAPIST Gender Identity Not on file Sexual Orientation Not on file COVID-19 Exposure Response Date Recorded In the last 10 days, have yo u been in contact with someone who was confirmed or suspected to have Coronavirus/COVID-19? No / Unsure 04/22/2022 4:04 PM CDT documented as of this encounter Last Filed Vital Signs Vital Sign Reading Time Taken Comments Blood Pressure - - Pulse - - Temperature - - Respiratory Rate - - Oxygen Saturation - - Inhaled Oxygen Concentration - - Weight 70.3 kg (155 lb) 04/22/2022 4:06 PM CDT Height 160 cm (5' 3 ) 04/22/2022 4:06 PM CDT Body Mass Index 27.46 04/22/2022 4:06 PM CDT documented in this encounter Progress Notes * Wilber Hamilton MD - 04/22/2022 4:00 PM CDT Chief Complaint: Knee Pain (LEFT) History of Present Illness: Briseyda Boyle is a 51-year-old female who presents to the office for Knee Pain (LEFT) New patient in clinic today for pain [...] numbness and tingling noted. 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 ROS: See HPI for pertinent positives Problem List: Patient Active Problem List Diagnosis ??? Osteoarthritis of left patellofemoral joint History: Past Medical History: Diagnosis Date ??? Anal fissure ??? Migraines ??? Vertigo Past Surgical History: Procedure Laterality Date ??? CARPAL TUNNEL RELEASE ??? KNEE SURGERY No family history on file. No family status information on file. Social History Socioeconomic History ??? Marital status: Single Tobacco Use ??? Smoking status: Never Smoker ??? Smokeless tobacco: Never Used Substance and Sexual Activity ??? Alcohol use: Not Currently ??? Drug use: Not Currently ??? Sexual activity: Not Currently Medications: Current Outpatient Medications: ??? atorvastatin 10 MG tablet, Take 10 mg by mouth nightly at bedtime., Disp: , Rfl: ??? buPROPion XL 150 MG 24 hr tablet, Take 150 mg by mouth daily., Disp: , Rfl: ??? meloxicam (MOBIC) 15 MG tablet, Take 1 tablet (15 mg total) by mouth daily., Disp: 30 tablet, Rfl: 2 ??? SUMAtriptan 100 MG tablet, Take 1 tablet (100 mg total) by mouth 2 (two) times daily as needed for Migraine. Take 1 tablet at onset of symptoms, may take 1 tablet 2 hours later. Max of 2 tablets in 24-hour period., Disp: 20 tablet, Rfl: 0 ??? venlafaxine 75 MG tablet, Take 150 mg by mouth daily. , Disp: , Rfl: Allergies Allergen Reactions ??? Succinylcholine Unknown Objective: Body mass index is 27.46 kg/m??. Last Recorded Weight 04/22/22 1606 Weight: 70.3 kg (155 lb) Physical exam: Constitutional: Alert and in no acute distress. Neurological: The patient was oriented to person, place, and time. Eyes: The sclera and conjunctiva were normal ENT: Hearing was normal. Neck: The appearance of the neck was normal. Cardiovascular: Normal pulses. Pulmonary: No respiratory distress. Skin: No injuries or skin lesion. Musculoskeletal: Left knee examination demonstrates a small effusion. She has healed surgical scarsin the anterior medial left knee. Neurovascularly intact and she has negative Omer's. No joint line tenderness but she has severe tenderness at the lateral patellofemoral articulation. Ligamentously stable. No hip pain. Neurovascularly intact Results: Narrowing with osteophyte formation is present at the patellofemoral articulation but otherwise no significant degenerative changes Assessment: Encounter Diagnose(s) ICD-10-CM ICD-9-CM SNOMED CT(R) 1. Osteoarthritis of left patellofemoral joint M17.12 715.36 OSTEOARTHRITIS OF LEFT PATELLOFEMORAL JOINT meloxicam (MOBIC) 15 MG tablet Plan: Patient has had multiple operations involving the left knee with patellar realignment as well as chondroplasty of the patella so she has a known history of patellofemoral pathology. My impression with today's examination is that her tenderness is localized at the patellofemoral articulation. She takes Aleve off-and-on and I recommended starting meloxicam so I provided a prescription. I also injected the left knee with Depo-Medrol and lidocaine and we will see if this provides long-term relief. She will return as neededProcedure: Procedure: Injection of the Knee Joint on the left. Indications for the procedure include Osteoarthritis. The procedure's were discussed with the patient. [...] no complications. Follow-up in the office prn. Follow up: Return if symptoms worsen or fail to improve. WILBER HAMILTON MD documented in this encounter Plan of Treatment [...] 8 mL, Other, Once, 1 dose, On Nay 04/22/22 at 1700 Given 04/22/2022 4:31 PM CDT 8 mLs methylPREDNISolone acetate (DEPO-Medrol) injection 80 mg 80 mg, Intra-articular, Once, 1 dose, On Nay 04/22/22 at 1700, Shake Well Given 04/22/2022 4:31 PM CDT 80 mg Other documented in this encounter Care Teams Fans Clerk Relationship Specialty Start Date End Date Lu Grace PA [address] [place] [address] PCP - General PHYSICIAN ALUMINUM CAN COLLECTOR 04/19/20 09/08/22 documented as of this encounter
--- OUTSIDE RECORDS SUMMARY | 2024-07-12 23:51 | XMS_ITS | Encounter Summary ---
Author Organization [facility] Address [address] [place] [address]. [place], [place] [address] [place] [address] Care Team Providers Care Lumber Sticker Name Role Phone Brenton Vora MD Primary Care Provider [phone] Reason for Visit * Reason Comments Knee Pain LEFT Encounter Details Date Type Department Care Team (Late st Contact Info) Description 10/14/2022 1:45 PM CDT Office Visit [facility] [place] [address] Charlotte Castro, [facility]- [address] [facility] [place] [address] Knee Pain (LEFT) Social History Tobacco Use Types Packs/Day Years Used Date Smoking Tobacco: Never Smokeless Tobacco: Never Tobacco Cessation:Counseling Given: Not Answered Alcohol Use Standard Drinks/Week Comments Not Currently 0 (1 standard drink = 0.6 oz pur e alcohol) Comments No Sex and Gender Information Value Date Recorded Sex Assigned at Not on file 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 ROS: See HPI for [...] Single Tobacco Use ??? Smoking status: Never ??? Smokeless tobacco: Never Substance and Sexual Activity ??? Alcohol use: Not Currently ??? Drug use: Not Currently ??? Sexual activity: Not Currently Medications: Current Outpatient Medications: ??? atorvastatin 10 MG tablet, Take 1 tablet (10 mg total) by mouth nightly at bedtime., Disp: , Rfl: ??? buPROPion XL (WELLBUTRIN XL) 300 MG 24 hr tablet, Take 1 tablet (300 mg total) by mouth daily.,Disp: , Rfl: ??? cyclobenzaprine (FLEXERIL) 5 MG tablet, 1 (ONE) TABLET TWICE DAILY NEEDED PAIN/SPASMS, Disp:, Rfl: ??? hydrOXYzine (ATARAX) 10 MG tablet, Take 1 tablet (10 mg total) by mouth nightly., Disp: , Rfl: ??? meloxicam (MOBIC) 15 MG tablet, TAKE 1 TABLET (15 MG TOTAL) BY MOUTH DAILY., Disp: 30 tablet, Rfl: 02 ??? SUMAtriptan 100 MG tablet, Take 1 tablet (100 mg total) by mouth 2 (two) times daily as needed for Migraine. Take 1 tablet at onset of symptoms, may take 1 tablet 2 hours later. Max of 2 tablets in 24-hour period., Disp: 20 tablet, Rfl: 0 ??? venlafaxine 75 MG tablet, Take 2 tablets (150 mg total) by mouth daily., Disp: , Rfl: Allergies Allergen Reactions ??? Succinylcholine Unknown Objective: Body mass index is 27.46 kg/m??. Last Recorded Weight 10/14/22 1340 Weight: 70.3 kg (155 lb) Physical exam: Constitutional: Alert and in no acute distress. Neurological: The patient was oriented to person, place, and time. Eyes: The sclera and conjunctiva were normal ENT: Hearing was normal. Neck: The appearance of the neck was normal. Cardiovascular: Normal pulses. Pulmonary: No respiratory distress. Skin: No injuries or skin lesion. Musculoskeletal: Exam of the left knee today demonstrates range of motion 0-1 15, no groin pain with hip rotation, minimal effusion, lateral joint line tenderness greater than medial, positive patellar grind, antalgic gait, no increased pain with valgus or varus stress, neurovascularly intact. Procedure: Procedure: Injection of the Knee Joint [...] the office prn. Assessment: Encounter Diagnose(s) ICD-10-CM ICD-9-CM SNOMED CT(R) 1. Osteoarthritis of left patellofemoral joint M17.12 715.36 OSTEOARTHRITIS OF LEFT PATELLOFEMORAL JOINT methylPREDNISolone acetate (DEPO-Medrol) injection 80 mg lidocaine (XYLOCAINE) 1 % injection SOLN 8 mL Plan: Patient has had a previous injection with good relief in her symptoms. She would like to continue to remain conservative if possible. She was given another injection in the office today and toleratedwell. Activity as tolerated. She is aware that she may receive these injections every 3 months as needed for her knee pain. If the injections do not provide her any more relief in her symptoms we canalways transition to viscosupplementation since she is [id number] end- stage patellofemoral osteoarthritis. Follow up: Return if symptoms worsen or fail to improve. RONNI MCKEON documented in this encounter Plan of Treatment [...] mL, Other, Once, 1 dose, On Nay 10/14/22 at 1445Indications:Osteoarthritis of left patellofemoral joint Given 10/14/2022 2:15 PM CDT 8 mLs Left Knee methylPREDNISolone acetate (DEPO-Medrol) injection 80 mg 80 mg, Other, Once, 1 dose, On Nay 10/14/22 at 1445, Earnest RiderIndications:Osteoarthritis of left patellofemoral joint Given 10/14/2022 2:16 PM CDT 80 mg Left Knee documented in this encounter Care Teams Lumber Sticker Relationship Specialty Start Date End Date Brenton Vora MD [address] [place] [phone] PCP - General FAMILY PRACTICE 09/09/22 documented as of this encounter
--- OUTSIDE RECORDS SUMMARY | 2024-07-12 23:51 | XMS_ITS | Encounter Summary ---
Author Organization [facility] Address [address] [place] [address]. 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 No / Unsure 07/22/2021 10:53 AM PAINT SPRAYER SANDBLASTER documented as of this encounter Plan of Treatment Not on file documented as of this encounter Visit Diagnoses Not on filedocumented in this encounter Additional Health Concerns Infection Onset Date Last Indicated Resolved Time COVID-19 Rule Out 07/22/2021 07/22/2021 07/22/2021 11:41 AM PAINT SPRAYER SANDBLASTER COVID-19 Rule Out 07/22/2021 07/22/2021 07/23/2021 9:48 PM PAINT SPRAYER SANDBLASTER documented as of this encounter Care Teams Manager Internal Relationship Specialty Start Date End Date Lu Grace PA [address] [place] [address] PCP - General PHYSICIAN CHUTE LOADER 04/19/20 09/08/22 documented as of this encounter
--- OUTSIDE RECORDS SUMMARY | 2024-07-12 23:51 | XMS_ITS | Encounter Summary ---
Author Organization [facility] Address [address] [place] [address]. [place], [place] [id number] [place] [id number] Care Team Providers Care Heavy Forging Machine Operator Name Role Phone Lu Grace Primary Care Provider [phone] Reason for Referral * Imaging (Emergency) - Closed Specialty Diagnoses / Procedures Referred By Pam lim Referred To Contact RADIOLOGY Procedures CTA HEAD+NECK Kirk Feng MD Phone: tel: fax: Referral ID Status Reason Start Date Expiration Date Visits Re quested Visits Authorized [id number] Closed 12/03/2020 01/03/2022 1 1 Reason for Visit * Reason Comments Headache Encounter Details Date Type Department Care Team (Late st Contact Info) Description 12/03/2020 1:59 PM CDT - 12/03/2020 4:17 PM CDT Emergency [facility] [address] [place] [address] [place] [address] Kirk Feng MD [address] [place] [id number] Headache Discharge Disposition: Home or Self Care (Routine Discharge) Social History Tobacco Use Types Packs/Day Years Used Date Smoking Tobacco: Never Smokeless Tobacco: Never Alcohol Use Standard Drinks/Week Comments Not Currently 0 (1 standard drink = 0.6 oz pur e alcohol) Comments No Sex and Gender Information Value Date Recorded Sex Assigned at Not on file 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 No / Unsure 12/03/2020 2:04 PM CDT documented as of this encounter Last Filed Vital Signs Vital Sign Reading Time Taken Comments Blood Pressure 124/83 12/03/2020 4:11 PM CDT Pulse 67 12/03/2020 4:11 PM CDT Temperature 35.8 ??C (96.4 ??F) 12/03/2020 2:05 PM CD T Respiratory Rate 16 12/03/2020 4:11 PM CDT Oxygen Saturation 100% 12/03/2020 4:11 PM CDT Inhaled Oxygen Concentration - - Weight 63.5 kg (140 lb) 12/03/2020 2:05 PM CDT Height 160 cm (5' 3 ) 12/03/2020 2:05 PM CDT Body Mass Index 24.8 12/03/2020 2:05 PM CDT documented in this encounter Discharge Instructions * Attachments The following attachments cannot be sent through Care Everywhere. * Headache, Adult ED ([place]) * Migraines Discharge Instructions ([place]) documented in this encounter Medications at Time of Discharge atorvastatin 10 MG tablet Take 1 tablet (10 mg total) by mouth nightly at bedtime. 05/17/2023 buPROPion XL 150 MG 24 hr tablet Take 150 mg by mouth daily. 02/14/2020 10/14/2022 SUMAtriptan 100 MG tablet Take 1 tablet (100 mg total) by mouth 2 (two) times daily as needed for Migraine. Take 1 tablet at onset of symptoms, may take 1 tablet 2 hours later. Max of 2 tablets in 24-hour period. 20 tablet 12/03/2020 05/17/2023 venlafaxine 75 MG tablet Take 2 tablets (150 mg total) by mouth daily. 05/17/2023 documented as of this encounter ED Notes * Noemi Trujillo RN - 12/03/2020 2:06 PM CDT PT ARRIVES PER POV FROM HOME. PT STATES HAS SUDDEN ONSET OF PAIN TO BACK OF HER HEAD. PT STATES IMMEDIATELY FELT DIZZY, NAUSEATED, SWEATY AND FELT LIKE SHE IS GOING TO PASS OUT. PT STATES HAS A HX OFMIGRAINES AND VERTIGO BUT STATES THIS FEELS DIFFERENT . * Kirk Feng MD - 12/03/2020 1:51 PM CDT eMERGENCY dEPARTMENT eNCOUnter CHIEF COMPLAINT Chief Complaint Patient presents with ??? Headache HPI HPI Maday Boyle is a 50-year-old female who presents to the ER with a complaint of developing a severe posterior headache today with photophobia nausea and dizziness. Patient states that she gets migraines sometimes but that this headache is worse and somewhat atypical for her typical migraines. Nofocal weakness recent illness trauma or other complaints. ALLERGIES Allergies Allergen Reactions ??? Succinylcholine Unknown CURRENT MEDICATIONS Current Outpatient Medications Medication Sig ??? SUMAtriptan 100 MG tablet Take 1 tablet (100 mg total) by mouth 2 (two) times daily as needed for Migraine. Take 1 tablet at onset of symptoms, may take 1 tablet 2 hours later. Max of 2 tablets in 24-hour period. ??? atorvastatin 10 MG tablet Take 10 mg by mouth nightly at bedtime. ??? buPROPion XL 150 MG 24 hr tablet Take 150 mg by mouth daily. ??? venlafaxine 75 MG tablet Take 150 mg by mouth daily. PAST MEDICAL HISTORY Past Medical History: Diagnosis Date ??? Anal fissure ??? Migraines ??? Vertigo SURGICAL HISTORY Past Surgical History: Procedure Laterality Date ??? CARPAL TUNNEL RELEASE ??? KNEE SURGERY SOCIAL HISTORY Social History Socioeconomic History ??? Marital status: Single Spouse name: Not on file ??? Number of children: Not on file ??? Years of education: Not on file ??? Highest education level: Not on file Occupational History ??? Not on file Tobacco Use ??? Smoking status: Never Smoker ??? Smokeless tobacco: Never Used Substance and Sexual Activity ??? Alcohol use: Not Currently ??? Drug use: Not Currently ??? Sexual activity: Not Currently Other Topics Concern ??? Not on file Social History Narrative ??? Not on file Social Determinants of Health Financial Resource Strain: ??? Difficulty of Paying Living Expenses: Food Insecurity: ??? Worried About Running Out of Food in the Last Year: ??? Ran Out of Food in the Last Year: Transportation Needs: ??? Lack of Transportation (Medical): ??? Lack of Transportation (Non-Medical): Physical Activity: ??? Days of Exercise per Week: ??? Minutes of Exercise per Session: Stress: ??? Feeling of Stress : Social Connections: ??? Frequency of Communication with Friends and Family: ??? Frequency of Social Gatherings with Friends and Family: ??? Attends Judaism Services: ??? Active Member of Clubs or Organizations: ??? Attends Club or Organization Meetings: ??? Marital Status: Intimate Partner Violence: ??? Fear of Current or Ex-Partner: ??? Emotionally Abused: ??? Physically Abused: ??? Sexually Abused: FAMILY HISTORY No family history on file. REVIEW OF SYSTEMS Review of Systems All other ROS negative unless noted above in HPI. PHYSICAL EXAM Physical Exam Filed Vitals: 12/03/20 1405 BP: (!) 142/90 Pulse: 88 Resp: 16 Temp: 96.4 ??F (35.8 ??C) TempSrc: Temporal SpO2: 99% Weight: 63.5 kg (140 lb) Height: 5' 3 (1.6 m) The patient is a well developed and well nourished adult female in moderate to severe discomfort and distress, alert and oriented. HEENT: PERRL, EOMI with photophobia Nose without drainage Throat without lesions, mucous membranes moist NECK: Supple without adenopathy or rigidity CHEST: Lungs clear and equal to auscultation Heart regular rate and rhythm without murmur ABD: Soft, NABS, non tender EXT: No clubbing, cyanosis, edema NEURO: CN II-XII intact, no focal weakness SKIN: No rash or significant lesions EKG RADIOLOGY CTA HEAD+NECK Final Result by User, [id number] (12/03 1889) Examination: CTA HEAD+NECK Exam time: 12/03/2020 3:44 PM Clinical history: Severe posterior headache, possible stroke Comparison: No previous study available for comparison. Noncontrasted CT was apparently not obtained. Technique: Axial images obtained from level of skull vertex to thoracic aortic arch with intravenous injection of 95 mL Isovue 370 contrast using low-dose CT technique. Sagittal, axial and coronal MIP reconstruction. Findings: Nonvascular findings: Visualized portions of the lung apices are demonstrating no significant acute abnormality. No evidence of neck mass nor adenopathy is demonstrated. No inflammatory change nor abscess. Mastoid air cells are clear bilaterally. Paranasal sinuses are clear. No orbit abnormalities. Images through the brain demonstrate no evidence of acute parenchymal hematoma. No significant epidural or subdural collections are demonstrated. No evidence of enhancing mass lesion. CTA NECK: Left-sided thoracic uric arch with standard 3 vessel great vessel origins. Origins of the great vessels are widely patent. There is no evidence of carotid stenosis. Both vertebral arteries are widely patent to the level of the basilar. CTA HEAD: There is no evidence of a filling defect or abrupt cut off to suggest acute central elim ira of Cash large vessel occlusion. No significant focal atherosclerotic narrowing. No evidence of elim ira of Cash aneurysm is demonstrated. There is no evidence of vascular malformation. IMPRESSION: 1) No evidence of carotid stenosis. 2. Both vertebral arteries are widely patent. 3. No evidence of focal filling defect or abrupt cut off to suggest acute central elim ira of Cash large vessel occlusion. 4. No evidence to suggest elim ira of Cash aneurysm. Referred By: KIRK FENG Interpreted By: Edgar Bowles MD, 12/03/2020 3:56 PM LABS Results for orders placed or performed during the hospital encounter of 12/03/20 CBC W/DIFF AUTOMATED Result Value Ref Range WBC 6.3 4.5 - 10.8 x10'3/uL RBC 4.66 4.10 - 5.40 x10'6/uL HGB 14.2 12.0 - 16.0 G/DL HCT 42.7 36.0 - 47.0 % MCV 91.6 78.0 - 100.0 FL MCH 30.5 27.0 - 31.0 PG MCHC 33.3 33.0 - 36.0 G/DL RDW 12.3 11.5 - 14.5 % PLT 168 150 - 350 x10'3/uL MPV 10.6 (H) 7.4 - 10.4 FL Differential Comment NORMAL REFERENCE RANGE NOT ESTABLISHED FOR THE PROPORTIONAL LEUKOCYTE DIFFERENTIAL. SEG NEUTROPHILS 66.3 % LYMPHOCYTES 27.0 % MONOCYTES 5.3 % EOSINOPHILS 0.6 % BASOPHILS 0.6 % IMMATURE GRANS 0.2 % NRBC 0.0 % ABS. NEUTROPHILS 4.15 1.60 - 8.30 x10'3/uL ABS. LYMPHOCYTES 1.69 0.80 - 4.70 x10'3/uL ABS. MONOCYTES 0.33 0.00 - 1.50 x10'3/uL ABS. EOSINOPHILS 0.04 0.00 - 0.40 x10'3/uL ABS. BASOPHILS 0.04 0.00 - 0.20 x10'3/uL ABS. IMMATURE GRANULOCYTES 0.01 0.00 - 0.03 x10'3/uL ABS. NUCLEATED RBC'S 0.00 0.00 x10'3/uL PROTIME/INR, VENOUS Result Value Ref Range Protime 11.7 9.4 - 12.5 SEC INR 1.1 0.9 - 1.1 PARTIAL THROMBOPLASTIN TIME,PTT Result Value Ref Range PTT 34.1 25.1 - 36.5 SEC COMPREHENSIVE METABOLIC PANEL Result Value Ref Range SODIUM 141 136 - 145 MMOL/L POTASSIUM 3.5 3.5 - 5.1 MMOL/L CHLORIDE S/P/B 104 98 - 107 MMOL/L CO2 27.9 21.0 - 32.0 MMOL/L GLUCOSE 112 (H) 70 - 99 MG/DL BUN 16 6 - 24 MG/DL CREATININE S/P/B 0.86 0.55 - 1.02 MG/DL CALCIUM 9.6 8.4 - 10.5 MG/DL BILIRUBIN TOTAL S/P/B 0.3 0.2 - 1.0 MG/DL ALKALINE PHOSPHATASE S/P/B 51 39 - 100 U/L AST 29 15 - 37 U/L ALT 35 14 - 59 U/L TOTAL PROTEIN S/P/B 7.4 6.4 - 8.2 G/DL ALBUMIN S/P/B 4.3 3.4 - 5.0 G/DL ANION GAP 9.1 5.0 - 15.0 MMOL/L OSMOLALITY (CALC) 294 MOSM/KG eGFR Non-Afr. Amer. 79 (L) >89 ML/MIN/1.73 M2 eGFR Afr. Amer. >90 >89 ML/MIN/1.73 M2 GFR NOTES GFR REFERENCES: ED MEDICATIONS Medications diphenhydrAMINE (BENADRYL) injection 25 mg (25 mg Intravenous Given 12/03/20 1441) metoclopramide (REGLAN) injection 10 mg (10 mg Intravenous Given 12/03/20 1440) iopamidol (ISOVUE-370) 76 % injection 95 mL (95 mLs Intravenous Given 12/03/20 1538) PROCEDURES Procedures CONSULTS: ED COURSE & MEDICAL DECISION MAKING MDM Patient was given an intravenous migraine cocktail with complete relief of her symptoms. Fortunately her CTA of the head and neck of come back negative. Is not clear why this headache was so severe and atypical compared to her baseline but now within normal studies it probably was some type of migraine variant and she is comfortable being discharged. Her sumatriptan prescription is old so I will g rickie her a new one. FINAL IMPRESSION SNOMED CT(R) 1. Acute headache ACUTE HEADACHE DAMION Franco [address] [place] [address] As needed New Prescriptions SUMATRIPTAN 100 MG TABLET Take 1 tablet (100 mg total) by mouth 2 (two) times daily as needed for Migraine. Take 1 tablet at onset of symptoms, may take 1 tablet 2 hours later. Max of 2 tablets in 24-hour period. Kirk Feng MD 12/03/20 1603 documented in this encounter Plan of Treatment Not on file documented as of this encounter Procedures Procedure Name Priority Date/Time Associated Diagnosis Comments CTA HEAD+NECK STAT 12/03/2020 3:44 PM CDT PARTIAL THROMBOPLASTIN TIME,PTT STAT 12/03/2020 2:42 PM CDT PROTHROMBIN TIME, VENOUS STAT 12/03/2020 2:42 PM CDT COMPREHENSIVE METABOLIC PANEL STAT 12/03/2020 2:42 PM CDT CBC W/DIFF AUTOMATED STAT 12/03/2020 2:42 PM CDT documented in this encounter Results * CTA HEAD+NECK (12/03/2020 3:44 PM CDT) Anatomical Region Laterality Modality Head, Neck Computed Tomogra phy 12/03/2020 3:56 PM CDT Impressions 12/03/2020 4:03 PM CDT IMPRESSION: 1) No evidence of carotid stenosis. 2. Both vertebral arteries are widely patent. 3. No evidence of focal filling defect or abrupt cut off to suggest acute central elim ira of Cash large vessel occlusion. 4. No evidence to suggest elim ira of Cash aneurysm. Referred By: KIRK FENG Interpreted By: Edgar Bowles MD, 12/03/2020 3:56 PM Narrative 12/03/2020 4:03 PM CDT Examination: CTA HEAD+NECK Exam time: 12/03/2020 3:44 PM Clinical history: Severe posterior headache, possible stroke Comparison: No previous study available for comparison. Noncontrasted CT was apparently not obtained. Technique: Axial images obtained from level of skull vertex to thoracic aortic arch with intravenous injection of 95 mL Isovue 370 contrast using low-dose CT technique. Sagittal, axial and coronal MIP reconstruction. Findings: Nonvascular findings: Visualized portions of the lung apices are demonstrating no significant acute abnormality. No evidence of neck mass nor adenopathy is demonstrated. No inflammatory change nor abscess. Mastoid air cells are clear bilaterally. Paranasal sinuses are clear. No orbit abnormalities. Images through the brain demonstrate no evidence of acute parenchymal hematoma. No significant epidural or subdural collections are demonstrated. No evidence of enhancing mass lesion. CTA NECK: Left-sided thoracic uric arch with standard 3 vessel great vessel origins. Origins of the great vessels are widely patent. There is no evidence of carotid stenosis. Both vertebral arteries are widely patent to the level of the basilar. CTA HEAD: There is no evidence of a filling defect or abrupt cut off to suggest acute central elim ira of Cash large vessel occlusion. No significant focal atherosclerotic narrowing. No evidence of elim ira of Cahs aneurysm is demonstrated. There is no evidence of vascular malformation. Procedure Note Edgar Bowles MD - 12/03/2020 Examination: CTA HEAD+NECK Exam time: 12/03/2020 3:44 PM Clinical history: Severe posterior headache, possible stroke Comparison: No previous study available for comparison. Noncontrasted CT was apparently not obtained. Technique: Axial images obtained from level of skull vertex to thoracic aortic arch with intravenous injection of 95 mL Isovue 370 contrastusing low-dose CT technique. Sagittal, axial and coronal MIP reconstruction. Findings: Nonvascular findings: Visualized portions of the lung apices are demonstrating no significant acute abnormality. No evidence of neck mass nor adenopathy is demonstrated. No inflammatory change nor abscess.Mastoid air cells are clear bilaterally. Paranasal sinuses are clear. No orbit abnormalities. Images through the brain demonstrate no evidence of acute parenchymal hematoma. No significant epidural or subdural collectionsare demonstrated. No evidence of enhancing mass lesion. CTA NECK: Left-sided thoracic uric arch with standard 3 vessel greatvessel origins. Origins of the great vessels are widely patent. There is no evidence of carotid stenosis. Both vertebral arteries are widely patentto the level of the basilar. CTA HEAD: There is no evidence of a filling defect or abrupt cut off to suggest acute central elim ira of Cash large vessel occlusion. No significant focal atherosclerotic narrowing. No evidence of elim ira of Cash aneurysm is demonstrated. There is no evidence of vascular malformation. IMPRESSION: 1) No evidence of carotid stenosis. 2. Both vertebral arteries are widely patent. 3. No evidence of focal filling defect or abrupt cut off to suggestacute central elim ira of Cash large vessel occlusion. 4. No evidence to suggest elim ira of Cash aneurysm. Referred By: KIRK FENG Interpreted By: Edgar Bowles MD, 12/03/2020 3:56 PM Kirk Feng MD CT Final Result * (ABNORMAL) COMPREHENSIVE METABOLIC PANEL (12/03/2020 2:42 PM CDT) SODIUM S/P/B 141 136 - 145 MMOL/L 12/03/2020 3:10 PM CDT [facility] POTASSIUM S/P/B 3.5 3.5 - 5.1 MMOL/L 12/03/2020 3:10 PM CDT [facility] CHLORIDE S/P/B 104 98 - 107 MMOL/L 12/03/2020 3:10 PM CDT [facility] CO2 27.9 21.0 - 32.0 MMOL/L 12/03/2020 3:10 PM CDT [facility] GLUCOSE 112(H) 70 - 99 MG/DL 12/03/2020 3:10 PM T [facility] Comment: FASTING GLUCOSE 100 TO 125 MG/DL IS CONSISTENT WITH IMPAIRED FASTING GLUCOSE. FASTING GLUCOSE >125 MG/DL IS CONSISTENT WITH DIABETES. RANDOM GLUCOSE >200 MG/DL WITH HYPERGLYCEMIC SYMPTOMS IS CONSISTENT WITH DIABETES. PER ADA GUIDELINES BUN 16 6 - 24 MG/DL 12/03/2020 3:10 PM CDT [facility] CREATININE S/P/B 0.86 0.55 - 1.02 MG/DL 12/03/2020 3:10 PM CDT [facility] CALCIUM S/P/B 9.6 8.4 - 10.5 MG/DL 12/03/2020 3:10 PM CDT [facility] BILIRUBIN TOTAL S/P/B 0.3 0.2 - 1.0 MG/DL 12/03/2020 3:10 PM T [facility] Comment: THIS ASSAY IS NOT RECOMMENDED FOR PATIENTS UNDERGOING TREATMENT WITH ELTROMBOPAG DUE TO THE POTENTIAL FOR FALSELY ELEVATED RESULTS. ALKALINE PHOSPHATASE S/P/B 51 39 - 100 U/L 12/03/2020 3:10 PM CDT [facility] AST 29 15 - 37 U/L 12/03/2020 3:10 PM [facility] ALT 35 14 - 59 U/L 12/03/2020 3:10 PM T [facility] TOTAL PROTEIN S/P/B 7.4 6.4 - 8.2 G/DL 12/03/2020 3:10 PM T [facility] ALBUMIN S/P/B 4.3 3.4 - 5.0 G/DL 12/03/2020 3:10 PM T [facility] ANION GAP 9.1 5.0 - 15.0 MMOL/L 12/03/2020 3:10 PM T [facility] OSMOLALITY (CALC) 294 MOSM/KG 021 3:10 PM T [facility] Comment:REFERENCE RANGE NOT ESTABLISHED EGFR NON-AFR. AMER. 79(L) >89 ML/MIN/1. 73 M2 12/03/2020 3:10 PM CDT [facility] EGFR AFR. AMER. >90 >89 ML/MIN/1. 73 M2 12/03/2020 3:10 PM CDT [facility] GFR NOTES GFR REFERENCE S: 12/03/2020 3:10 PM CDT [facility] Comment: THE ESTIMATED GFR IS CALCULATED USING THE 2009 CKD-EPI EQUATION. THE FOLLOWING CATEGORIES FOR GRADING RENAL FUNCTION ARE RECOMMENDED BY THE INTERNATIONAL SOCIETY OF NEPHROLOGY (KDIGO 2012 CLINICAL PRACTICE GUIDELINE). G1,NORMAL OR HIGH: >89 ml/min/1.73 m2 G2,MILDLY DECREASED: 60-89 ml/min/1.73 m2 G3A,MILDLY TO MODERATELY DECREASED: 45-59 ml/min/1.73 m2 G3B,MODERATELY TO SEVERELY DECREASED: 30-44 ml/min/1.73 m2 G4,SEVERELY DECREASED: 15-29 ml/min/1.73 m2 G5,KIDNEY FAILURE: <15 ml/min/1.73 m2 12/03/2020 2:42 PM CDT us Kirk Feng MD LABORATORY Final Result [facility] [address] [place] [address], * PARTIAL THROMBOPLASTIN TIME,PTT (12/03/2020 2:42 PM CDT) PTT 34.1 25.1 - 36.5 SEC 12/03/2020 2:58 PM CDT [facility] Comment:THERAPEUTIC RANGE: 4 6.2-77.0 SEC 12/03/2020 2:42 PM CDT us Kirk Feng MD LABORATORY Final Result [facility] [address] [place] [address], * PROTIME/INR, VENOUS (12/03/2020 2:42 PM CDT) PROTIME 11.7 9.4 - 12.5 SEC 12/03/2020 2:58 PM CDT [facility] INR 1.1 0.9 - 1.1 12/03/2020 2:58 PM CDT [facility] 12/03/2020 2:42 PM CDT Kirk Feng MD LABORATORY Final Result [facility] [address] [place] [address], * (ABNORMAL) CBC W/DIFF AUTOMATED (12/03/2020 2:42 PM CDT) [facility] WBC 6.3 4.5 - 10.8 x10'3/uL 12/03/2020 2:49 PM CDT [facility] RBC 4.66 4.10 - 5.40 x10'6/uL 12/03/2020 2:49 PM CDT [facility] HGB 14.2 12.0 - 16.0 G/DL 12/03/2020 2:49 PM CDT [facility] HCT 42.7 36.0 - 47.0 % 12/03/2020 2:49 PM CDT [facility] MCV 91.6 78.0 - 100.0 FL 12/03/2020 2:49 PM CDT [facility] MCH 30.5 27.0 - 31.0 PG 12/03/2020 2:49 PM CDT [facility] MCHC 33.3 33.0 - 36.0 G/DL 12/03/2020 2:49 PM CDT [facility] RDW 12.3 11.5 - 14.5 % 12/03/2020 2:49 PM CDT [facility] PLT 168 150 - 350 x10'3/uL 12/03/2020 2:49 PM CDT [facility] MPV 10.6(H) 7.4 - 10.4 FL 12/03/2020 2:49 PM CDT [facility] DIFFERENTIAL COMMENT NORMAL REFERENCE RANGE NOT ESTABLISHED FOR THE PROPORTIONAL LEUKOCYTE DIFFERENTIAL. 12/03/2020 2:49 PM CDT [facility] SEG NEUTROPHILS 66.3 % 2:49 PM CDT [facility] LYMPHOCYTES 27.0 % 12/03/2020 2:49 PM CDT [facility] MONOCYTES 5.3 % 12/03/2020 2:49 PM CDT [facility] EOSINOPHILS 0.6 % 12/03/2020 2:49 PM CDT [facility] BASOPHILS 0.6 % 12/03/2020 2:49 PM CDT [facility] IMMATURE GRANS % 0.2 % 12/04/19 2:49 PM CDT [facility] NRBC 0.0 % 12/03/2020 2:49 PM CDT [facility] ABS. NEUTROPHILS 4.15 1.60 - 8.30 x10'3/uL 12/03/2020 2:49 PM CDT [facility] ABS. LYMPHOCYTES 1.69 0.80 - 4.70 x10'3/uL 12/03/2020 2:49 PM CDT [facility] ABS. MONOCYTES 0.33 0.00 - 1.50 x10'3/uL 12/03/2020 2:49 PM CDT [facility] ABS. EOSINOPHILS 0.04 0.00 - 0.40 x10'3/uL 12/03/2020 2:49 PM CDT [facility] ABS. BASOPHILS 0.04 0.00 - 0.20 x10'3/uL 12/03/2020 2:49 PM CDT [facility] ABS. IMMATURE GRANULOCYTES 0.01 0.00 - 0.03 x10'3/uL 12/03/2020 2:49 PM CDT [facility] ABS. NUCLEATED RBC'S 0.00 0.00 x10'3/uL 12/03/2020 2:49 PM CDT [facility] 12/03/2020 2:42 PM CDT Kirk Feng MD LABORATORY Final Result [facility] [address] [place] [address], documented in this encounter Visit Diagnoses Diagnosis Acute headache- Primary Headache documented in this encounter Administered Medications Inactive Administered Medications - up to 3 most recent administrations Medication Order MAR Action Action Date Dose Rate Site diphenhydrAMINE (BENADRYL) injection 25 mg 25 mg, Intravenous, Once, 1 dose, On Tue12/03/20 at 1430, For IV administration, give no faster than 25 mg/min. Given 12/03/2020 2:41 PM CDT 25 mg iopamidol (ISOVUE-370) 76 % injection 95 mL 95 mL, Intravenous, IMG once as needed, Contrast, 1 dose, Starting on Tue12/03/20 at 1538, Until Tue12/03/20 at 1538 Given 12/03/2020 3:38 PM CDT 95 mLs Left Arm metoclopramide (REGLAN) injection 10 mg 10 mg, Intravenous, Once, 1 dose, On Tue12/03/20 at 1430, Administer IV over 1-2 minutes Given 12/03/2020 2:40 PM CDT 10 mg documented in this encounter Active and Recently Administered Medications Times are shown in CDT. Scheduled Medication Order 12/01/2020 12/02/2020 12/03/2020 diphenhydrAMINE (BENADRYL) injection 25 mg (COMPLETED) 25 mg, Intravenous, Once, 1 dose, On Tue12/03/20 at 1430, For IV administration, give no faster than 25 mg/min. 1441 (Given - Provid er: Sushila Warren RN) metoclopramide (REGLAN) injection 10 mg (COMPLETED) 10 mg, Intravenous, Once, 1 dose, On Tue12/03/20 at 1430, Administer IV over 1-2 minutes 1440 (Given - Provid er: Sushila Warren RN) PRN Medication Order 12/01/2020 12/02/2020 12/03/2020 iopamidol (ISOVUE-370) 76 % injection 95 mL (COMPLETED) 95 mL, Intravenous, IMG once as needed, Contrast, 1 dose, Starting on Tue12/03/20 at 1538, Until Tue12/03/20 at 1538 1538 (Given - Provid er: Erick Small, RTR) documented in this encounter Care Teams Heavy Forging Machine Operator Relationship Specialty Start Date End Date Lu Grace PA [address] [place] [address] PCP - General PHYSICIAN ASSURANCE SENIOR MANAGER 04/19/20 09/08/22 documented as of this encounter
--- OUTSIDE RECORDS SUMMARY | 2024-07-12 23:51 | XMS_ITS | Encounter Summary ---
Author Organization [facility] Address [address] [place] [address] Care Team Providers Care Cpr Instructor Name Role Phone Nicola Martinez MD Unavailable [phone] None, Physician Primary Care Provider Unavailabl e Encounter Details Date Type Department Care Team (Latest Contact Info) Description 04/28/2023 Travel Social History Tobacco Use Types Packs/Day Years Used Date Smoking Tobacco: Never Assessed Sex and Gender Information Value Date Recorded Sex Assigned at Not on file Gender Identity Not on file Sexual Orientation Not on file documented as of this encounter Plan of Treatment Not on file documented as of this encounter Visit Diagnoses Not on filedocumented in this encounter Care Teams Cpr Instructor Relationship Specialty Start Date End Date None, Physician [address] [place] [address] PCP - General 04/28/23 Nicola Martinez MD [address] [facility] [place] [address] Family Medicine 04/22/21 documented as of this encounter
--- OUTSIDE RECORDS SUMMARY | 2024-07-12 23:51 | XMS_ITS | Encounter Summary ---
Author Organization [facility] Address [address] [place] [address]. [place], [place] [address] [place] [address] Care Team Providers Care Triage Rn Name Role Phone Brenton Vora MD Primary Care Provider [phone] Encounter Details Date Type Department Care Team (Latest Contact Info) Description 12/29/2022 Travel Social History Tobacco Use Types Packs/Day Years Used Date Smoking Tobacco: Never Smokeless Tobacco: Never Alcohol Use Standard Drinks/Week Comments Not Currently 0 (1 standard drink = 0.6 oz pur e alcohol) Comments No Sex and Gender Information Value Date Recorded Sex Assigned at Not on file Legal Sex Female 10:30 PM CERTIFIED RESIDENTIAL MEDICATION AIDE Gender Identity Not on file Sexual Orientation Not on file COVID-19 Exposure Response Date Recorded In the last 10 days, have yo u been in contact with someone who was confirmed or suspected to have Coronavirus/COVID-19? No / Unsure 12/29/2022 5:49 AM CDT documented as of this encounter Plan of Treatment Not on file documented as of this encounter Visit Diagnoses Not on filedocumented in this encounter Care Teams Triage Rn Relationship Specialty Start Date End Date Brenton Vora MD [address] [place] [phone] PCP - General FAMILY PRACTICE 09/09/22 documented as of this encounter
--- OUTSIDE RECORDS SUMMARY | 2024-07-12 23:51 | XMS_ITS | Encounter Summary ---
Author Organization [facility] Address [address] [place] [address]. [place], [place] [address] [place] [address] Care Team Providers Care Senior Windows Administrator Name Role Phone Lu Grace Primary Care Provider [phone] Encounter Details Date Type Department Care Team (Late st Contact Info) Description 04/13/2022 Orders Only [facility] [place] [address] Wilber Hamilton MD [address] [place] [address] Social History Tobacco Use Types Packs/Day Years Used Date Smoking Tobacco: Never Smokeless Tobacco: Never Alcohol Use Standard Drinks/Week Comments Not Currently 0 (1 standard drink = 0.6 oz pur e alcohol) Comments No Sex and Gender Information Value Date Recorded Sex Assigned at Not on file Legal Sex Female 10:30 PM 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
--- OUTSIDE RECORDS SUMMARY | 2024-07-12 23:51 | XMS_ITS | Encounter Summary ---
Author Organization [facility] Address [address] [place] [address]. [place], [place] [address] [place] [address] Care Team Providers Care Hot Top Liner Name Role Phone Lu Grace Primary Care Provider [phone] Encounter Details Date Type Department Care Team (Late st Contact Info) Description 07/22/2021 Orders Only [facility] [address] [address] Cristel Rivera, [facility] [address] [place] [address] Social History Tobacco Use Types Packs/Day Years Used Date Smoking Tobacco: Never Smokeless Tobacco: Never Alcohol Use Standard Drinks/Week Comments Not Currently 0 (1 standard drink = 0.6 oz pur e alcohol) Comments No Sex and Gender Information Value Date Recorded Sex Assigned at Not on file Legal Sex Female 10:30 PM MONUMENT INSTALLER Gender Identity Not on file Sexual Orientation Not on file COVID-19 Exposure Response Date Recorded In the last month, have you been in contact with someone who was confirmed or suspected to have Coronavirus / COVID-19? No / Unsure 07/22/2021 10:53 AM MONUMENT INSTALLER documented as of this encounter Plan of Treatment Not on file documented as of this encounter Results * CORONAVIRUS (COVID 19) PCR (07/22/2021 11:10 AM MONUMENT INSTALLER) SPEC DESCRIPTION NASAL 07/22/20 1:21 PM MONUMENT INSTALLER [facility] CORONAVIRUS SARS COV 2 PCR (RESP) NEGATIVE NEGATIVE 07/23/2021 9:48 PM MONUMENT INSTALLER [facility] Comment: THE SARS-CoV-2 TEST HAS BEEN AUTHORIZED BY THE FDA UNDER AN EUA FOR USE BY AUTHORIZED LABORATORIES. PERFORMED BY NUCLEIC ACID AMPLIFICATION PCR FIRST TEST NO 07/22/2021 1:21 PM MONUMENT INSTALLER [facility] EMPLOYED IN HEALTHCARE NO 07/22/2021 1:21 PM MONUMENT INSTALLER [facility] SYMPTOMATIC DEFINED BY CDC NO 07/22/2021 1:21 PM MONUMENT INSTALLER [facility] HOSPITALIZATION STATUS NO 07/22/2021 1:21 PM MONUMENT INSTALLER [facility] PATIENT IN ICU NO 07/22/2021 1:21 PM MONUMENT INSTALLER [facility] RESIDENT OF [facility] NO 07/22/2021 1:21 PM MONUMENT INSTALLER [facility] NOT 07/22/2021 1:21 PM MONUMENT INSTALLER [facility] NASAL STRUCTURE / Unknown 07/22/2021 11:10 AM MONUMENT INSTALLER Cristel Rivera [facility] MICROBIOLOGY - GENERAL OR DERABLES Final Result [facility] [address] [place] [address], [facility] [address] [place] [address], [place] [phone] * CORONAVIRUS (COVID-19) ANTIGEN DIRECT OPTICAL (07/22/2021 11:10 AM MONUMENT INSTALLER) CORONAVIRUS ANTIGEN IA NEGATIVE NEGATIVE 07/22/2021 11:41 AM MONUMENT INSTALLER [facility] Comment: NEGATIVE RESULTS DO NOT RULE OUT SARS-COV-2 INFECTION AND SHOULD NOT BE USED THE SOLE BASIS FOR TREATMENT OR PATIENT MANAGEMENT DECISIONS, INCLUDING INFECTION CONTROL DECISIONS. NEGATIVE RESULTS SHOULD BE CONSIDERED IN THE CONTEXT OF A PATIENT'S RECENT EXPOSURES, HISTORY AND THE PRESENCE OF CLINICAL SIGNS AND SYMPTOMS CONSISTENT WITH COVID 19. THIS TEST HAS BEEN AUTHORIZED BY THE FDA UNDER AN EMERGENCY USE AUTHORIZATION (EUA) FOR USE BY AUTHORIZED LABORATORIES. SPECIMEN TYPE NASAL 07/22/2021 10:57 AM MONUMENT INSTALLER [facility] FIRST TEST NO 07/22/2021 10:57 AM MONUMENT INSTALLER [facility] EMPLOYED IN HEALTHCARE NO 07/22/2021 10:57 AM MONUMENT INSTALLER [facility] SYMPTOMATIC DEFINED BY CDC NO 07/22/2021 10:57 AM MONUMENT INSTALLER [facility] HOSPITALIZATION STATUS NO 07/22/2021 10:57 AM MONUMENT INSTALLER [facility] PATIENT IN ICU NO 07/22/2021 10:57 AM MONUMENT INSTALLER [facility] RESIDENT OF [facility] NO 07/22/2021 10:57 AM MONUMENT INSTALLER [facility] NOT 07/22/2021 10:57 AM MONUMENT INSTALLER [facility] Specimen from nose (specimen) NASAL STRUCTURE / Unknown 07/22/2021 11:10 AM MONUMENT INSTALLER Cristel [facility]- MICROBIOLOGY - GENERAL OR DERABLES Final Result Performing Organization Address City/State/[facility] de Phone Number [facility] [address] [place] [id number], documented in this encounter Visit Diagnoses Diagnosis Encounter for screening for other viral diseases- Primary documented in this encounter Additional Health Concerns Infection Onset Date Last Indicated Resolved Time COVID-19 Rule Out 07/22/2021 07/22/2021 07/22/2021 11:41 AM MONUMENT INSTALLER COVID-19 Rule Out 07/22/2021 07/22/2021 07/23/2021 9:48 PM MONUMENT INSTALLER documented as of this encounter Care Teams Hot Top Liner Relationship Specialty Start Date End Date Lu Grace PA [address] [place] [address] PCP - General PHYSICIAN DIE ENGRAVING SUPERVISOR 04/19/20 09/08/22 documented as of this encounter
--- OUTSIDE RECORDS SUMMARY | 2024-07-12 23:51 | XMS_ITS | Encounter Summary ---
Author Organization [facility] Address [address] [place] [address]. [place], [place] [address] [place] [address] Care Team Providers Care Oil Heat Technician Name Role Phone Lu Grace Primary Care Provider [phone] Encounter Details Date Type Department Care Team (Latest Contact Info) Description 04/22/2022 Travel Social History Tobacco Use Types Packs/Day Years Used Date Smoking Tobacco: Never Smokeless Tobacco: Never Alcohol Use Standard Drinks/Week Comments Not Currently 0 (1 standard drink = 0.6 oz pur e alcohol) Comments No Sex and Gender Information Value Date Recorded Sex Assigned at Not on file Legal Sex Female 10:30 PM FREIGHT WEIGHER Gender Identity Not on file Sexual Orientation [...] on filedocumented in this encounter Care Teams Oil Heat Technician Relationship Specialty Start Date End Date Lu Grace PA [address] [place] [address] PCP - General PHYSICIAN INSTRUCTOR WEAVING 04/19/20 09/08/22 documented as of this encounter
--- OUTSIDE RECORDS SUMMARY | 2024-07-12 23:51 | XMS_ITS | Encounter Summary ---
Author Organization [facility] Address [address] [place] [address]. [place], [place] [address] [place] [address] Care Team Providers Care Regional Director Of Finance Name Role Phone Brenton Vora MD Primary Care Provider [phone] Reason for Visit * Reason Onset Date Comments Refill Request 05/24/2023 Encounter Details Date Type Department Care Team (Late st Contact Info) Description 05/24/2023 Telephone [facility] [place] [id number] [place] Castro, TRUCK TECHNICIAN- [address] [place] [address] [place] [address] Refill Request Social History Tobacco Use Types Packs/Day Years Used Date Smoking Tobacco: Never Smokeless Tobacco: Never Alcohol Use Standard Drinks/Week Comments Not Currently 0 (1 standard drink = 0.6 oz pur e alcohol) Comments No Sex and Gender Information Value Date Recorded Sex Assigned at Not on file Legal Sex Female 10:30 PM LEASE EXAMINER Gender Identity Not on file Sexual Orientation Not on file documented as of this encounter Progress Notes * Cielo Jacobs LPN - 05/24/2023 10:31 AM CDT Patient called asking for a refill of Meloxicam. Per Charlotte's last note, she would like PCP to takeover refills. Patient has been made aware. documented in this encounter Plan of Treatment Not on file documented as of this encounter Visit Diagnoses Not on filedocumented in this encounter Care Teams Regional Director Of Finance Relationship Specialty Start Date End Date Brenton Vora MD [address] [place] [phone] PCP - General FAMILY PRACTICE 09/09/22 documented as of this encounter
--- OUTSIDE RECORDS SUMMARY | 2024-07-12 23:51 | XMS_ITS | Encounter Summary ---
Author Organization [facility] Address [address] [place] [address]. [place], [place] [address] [place] [address] Care Team Providers Care Alto Singer Name Role Phone Brenton Vora MD Primary Care Provider [phone] Encounter Details Date Type Department Care Team (Late st Contact Info) Description 05/17/2023 4:14 PM CDT - 05/17/2023 11:59 PM CDT Hospital Encounter 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 08/17/2022 busPIRone (BUSPAR) 15 MG tablet 1 tablet (15 mg total). 03/16/2023 meloxicam (MOBIC) 15 MG tabletIndications:Os teoarthritis of left patellofemoral joint Take 1 tablet (15 mg total) by mouth daily. 30 tablet 04/15/2023 documented as of this encounter Plan of Treatment Not on file documented as of this encounter Procedures Procedure Name Priority Date/Time Associated Diagnosis Comments XR KNEE STAND AP MELCHOR ONLY Routine 05/17/2023 4:43 PM CDT Left knee pain, unspecified chronicity XR KNEE LT 2V Routine 05/17/2023 4:43 PM CDT Left knee pain, unspecified chronicity documented in this encounter Results * XR KNEE LT [...] By: Edgar Bowles MD, 05/18/2023 3:45 PM us Ann Marie Castro PHY THERAPIST-BC GENERAL IMAGING Final Resu lt * XR [...] By: Edgar Bowles MD, 05/18/2023 3:45 PM us Ann Marie Castro PHY THERAPIST-BC GENERAL IMAGING Final Resu lt documented in this encounter Visit Diagnoses Diagnosis Left knee pain, unspecified chronicity documented in this encounter Care Teams Alto Singer Relationship Specialty Start Date End Date Brenton Vora MD [address] [place] [phone] PCP - General FAMILY PRACTICE 09/09/22 documented as of this encounter
--- OUTSIDE RECORDS SUMMARY | 2024-07-12 23:51 | XMS_ITS | Encounter Summary ---
Author Organization [facility] Address [address] [place] [address]. [place], [place] [address] [place] [address] Care Team Providers Care Bobbin Sorter Name Role Phone Lu Grace Primary Care Provider [phone] Encounter Details Date Type Department Care Team (Latest Contact Info) Description 07/22/2021 10:50 AM DISTILLERY MANAGER - 07/22/2021 11:59 PM DISTILLERY MANAGER Hospital Encounter [place] [id number] [address] [facility] [place] [address] Cristel Rivera, [facility] [address] [place] [address] Discharge Disposition: Home or Self Care (Routine Discharge) Social History Tobacco Use Types Packs/Day Years Used Date Smoking Tobacco: Never Smokeless Tobacco: Never Alcohol Use Standard Drinks/Week Comments Not Currently 0 (1 standard drink = 0.6 oz pur e alcohol) Comments No Sex and Gender Information Value Date Recorded Sex Assigned at Not on file Legal Sex Female 10:30 PM DISTILLERY MANAGER Gender Identity Not on file Sexual Orientation Not on file COVID-19 Exposure Response Date Recorded In the last month, have you been in contact with someone who was confirmed or suspected to have Coronavirus / COVID-19? No / Unsure 07/22/2021 10:53 AM DISTILLERY MANAGER documented as of this encounter Medications at [...] daily. 05/17/2023 documented as of this encounter Plan of Treatment Not on file documented as of this encounter Procedures Procedure Name Priority Date/Time Associated Diagnosis Comments CORONAVIRUS (COVID-19) ANTIGEN DIRECT OPTICAL Routine 07/22/2021 11:10 AM DISTILLERY MANAGER Encounter for screening for other viral diseases CORONAVIRUS (COVID 19) Routine 07/22/2021 11:10 AM DISTILLERY MANAGER Encounter for screening for other viral diseases documented in this encounter Results * CORONAVIRUS (COVID 19) PCR (07/22/2021 11:10 AM DISTILLERY MANAGER) SPEC DESCRIPTION NASAL 07/22/20 1:21 PM DISTILLERY MANAGER [facility] CORONAVIRUS SARS COV 2 PCR (RESP) NEGATIVE NEGATIVE 07/23/2021 9:48 PM [facility] Comment: THE SARS-CoV-2 TEST HAS BEEN AUTHORIZED BY THE FDA UNDER AN EUA FOR USE BY AUTHORIZED LABORATORIES. PERFORMED BY NUCLEIC ACID AMPLIFICATION PCR FIRST TEST NO 07/22/2021 1:21 PM [facility] EMPLOYED IN HEALTHCARE NO 07/22/2021 1:21 PM [facility] SYMPTOMATIC DEFINED BY CDC NO 07/22/2021 1:21 PM [facility] HOSPITALIZATION STATUS NO 07/22/2021 1:21 PM DISTILLERY MANAGER [facility] PATIENT IN ICU NO 07/22/2021 1:21 PM [facility] RESIDENT OF [facility] NO 07/22/2021 1:21 PM [facility] NOT 07/22/2021 1:21 PM [facility] NASAL STRUCTURE / Unknown 07/22/2021 11:10 AM DISTILLERY MANAGER [facility] MI[facility] - GENERAL OR DERABLES Final Result [facility] [address] [place] [address], [place] [phone] [facility] [address] [place] [address], [place] [phone] * CORONAVIRUS (COVID-19) ANTIGEN DIRECT OPTICAL (07/22/2021 11:10 AM DISTILLERY MANAGER) CORONAVIRUS ANTIGEN IA NEGATIVE NEGATIVE 07/22/2021 11:41 AM DISTILLERY MANAGER [facility] Comment: NEGATIVE RESULTS DO NOT [...] LABORATORIES. SPECIMEN TYPE NASAL 07/22/2021 10:57 AM DISTILLERY MANAGER [facility] FIRST TEST NO 07/22/2021 10:57 AM DISTILLERY MANAGER [facility] EMPLOYED IN HEALTHCARE NO 07/22/2021 10:57 AM DISTILLERY MANAGER [facility] SYMPTOMATIC DEFINED BY CDC NO 07/22/2021 10:57 AM DISTILLERY MANAGER [facility] HOSPITALIZATION STATUS NO 07/22/2021 10:57 AM DISTILLERY MANAGER [facility] PATIENT IN ICU NO 07/22/2021 10:57 AM DISTILLERY MANAGER [facility] RESIDENT OF [facility] CARE NO 07/22/2021 10:57 AM DISTILLERY MANAGER [facility] NOT 07/22/2021 10:57 AM DISTILLERY MANAGER [facility] Specimen from nose (specimen) NASAL STRUCTURE / Unknown 07/22/2021 11:10 AM DISTILLERY MANAGER [facility] - GENERAL OR DERABLES Final Result [facility] [address] [place] [address], documented in this encounter Visit Diagnoses Diagnosis Encounter for screening for other viral diseases documented in this encounter Additional Health Concerns Infection Onset Date Last Indicated Resolved Time COVID-19 Rule Out 07/22/2021 07/22/2021 07/22/2021 11:41 AM DISTILLERY MANAGER COVID-19 Rule Out 07/22/2021 07/22/2021 07/23/2021 9:48 PM DISTILLERY MANAGER documented as of this encounter Care Teams Bobbin Sorter Relationship Specialty Start Date End Date Lu Grace PA [address] [place] [address] PCP - General PHYSICIAN QUALITY ASSURANCE PROJECT MANAGER 04/19/20 09/08/22 documented as of this encounter
--- OUTSIDE RECORDS SUMMARY | 2024-07-12 23:51 | XMS_ITS | Encounter Summary ---
Author Organization [facility] Address [address] [place] [address]. [place], [place] [id number] [place] [address] Care Team Providers Care Plan Manager Name Role Phone Lu Grace Primary Care Provider [phone] Encounter Details Date Type Department Care Team (Latest Contact Info) Description 12/03/2020 Travel Social History Tobacco Use Types Packs/Day Years Used Date Smoking Tobacco: Never Smokeless Tobacco: Never Alcohol Use Standard Drinks/Week Comments Not Currently 0 (1 standard drink = 0.6 oz pur e alcohol) Comments No Sex and Gender Information Value Date Recorded Sex Assigned at Not on file Legal Sex Female 10:30 PM TIN STACKER Gender Identity Not on file Sexual Orientation [...] on filedocumented in this encounter Care Teams Plan Manager Relationship Specialty Start Date End Date Lu Grace PA [address] [place] [address] PCP - General PHYSICIAN SHIP WASHER 04/19/20 09/08/22 documented as of this encounter
--- OUTSIDE RECORDS SUMMARY | 2024-07-12 23:51 | XMS_ITS | Encounter Summary ---
Author Organization [facility] Address [address] [place] [address] Care Team Providers Care Clam Digger Name Role Phone Nicola Martinez MD Unavailable [phone] None, Physician Primary Care Provider Unavailabl e Reason for Visit * Reason Comments Lesions New patient,spot on nose Encounter Details Date Type Department Care Team (Late st Contact Info) Description 09/13/2023 9:40 AM DASHBOARD DEVELOPER Office Visit [facility] - Dermatology [address] [place] [address], [facility] [place] [address] Adonay Hull MD [address] [place] [address] [place] [address] Neoplasm of uncertain behavior of skin (Primary Dx) Social History Tobacco Use Types Packs/Day Years Used Date Smoking Tobacco: Never Smokeless Tobacco: Never Tobacco Cessation:Counseling Given: Not Answered Sex and Gender Information Value Date Recorded Sex Assigned at Not on file Gender Identity Not on file Sexual Orientation Not on file documented as of this encounter Progress Notes * Ruba Sullivan MD - 09/13/2023 10:13 AM CST I have seen and examined the patient with the resident and I agree with the findings and plan of care as documented by the resident. Date of Service: 09/13/2023 1. Spider angioma vs. other -hyfercation Ruba Sullivan MD BOARD DEVELOPER * Adonay Hull MD - 09/13/2023 9:59 AM CST Chief Complaint Patient presents with ??? Lesions New patient,spot on nose HPI: Briseyda Boyle is a 53 year old female who presents as a new patient. Concerns: 1. Nose lesion. Onset summer 2022. Painful. Embarrassing for patient given location and red hue. 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 Wears [id number] daily. Physical exam: Skin exam was conducted to include the nose and was notable for the following: - central red 1mm papule with radiating telangiectasias on nasal tip Assessment/Plan: Neoplasm of uncertain behavior of skin, nasal tip. Favor spider angioma - discussed tx options, including laser (my preference, though out of pocket costs discussed) vs gentle hyfrecation vs monitoring. Discussed risks/benefits of both procedures (incl near 100% chance of scar/dyspigmentation from hyfrecation), pt elected gentle hyfrecation - destruction lesion, hyfrecation after intralesional anesthetic. See procedure note. Return to clinic as needed Billing Guide Adonay Hull MD [facility] Dermatology Resident BOARD DEVELOPER documented in this encounter Procedure Notes * Adonay Hull MD - 09/13/2023 12:24 PM CSTAssociated Order(s): PROC DESTRUCT BENIGN LESION NOT SKIN TAG Procedure(s): MD DESTRUCT BENIGN LESION, 1-14 Pre-Procedure Diagnose(s): Neoplasm of uncertain behavior of skin Procedure: NUB destruction Consent: Verbal Location: 1 lesion treated on nasal tip Anesthesia: 1% lidocaine with epinephrine LN2 used for several lesions along with gentle hyfrecation with ConMed at setting 10 Hemostasis achieved Vaseline and bandaids applied Wound care reviewed The patient tolerated the procedure without complications BOARD DEVELOPER Associated attestation - Ruba Sullivan MD - 09/15/2023 2:04 PM DASHBOARD DEVELOPER A procedure was performed. I was present for the entire procedure. See procedure note. Ruba Sullivan MD documented in this encounter Plan of Treatment Not on file documented as of this encounter Procedures Procedure Name Priority Date/Time Associated Diagnosis Comments MD DESTRUCT BENIGN LESION, 1-14 Routine 09/13/2023 12:24 PM DASHBOARD DEVELOPER Neoplasm of uncertain behavior of skin documented in this encounter Results * MD DESTRUCT BENIGN LESION, 1-14 (09/13/2023 12:24 PM DASHBOARD DEVELOPER) Narrative Ruba Sullivan MD - 09/13/2023 12:24 PM DASHBOARD DEVELOPER Adonay Hull MD ? 09/13/2023 12:25 PM Procedure: NUB destruction Consent: Verbal Location: 1 lesion treated on nasal tip Anesthesia: 1% lidocaine with epinephrine LN2 used for several lesions along with gentle hyfrecation with ConMed at setting 10 Hemostasis achieved Vaseline and bandaids applied Wound care reviewed The patient tolerated the procedure without complications Ruba Sullivan MD PROCEDURE/MINOR GAN RGICAL ORDERABLES documented in this encounter Visit Diagnoses Diagnosis Neoplasm of uncertain behavior of skin- Primary documented in this encounter Care Teams Clam Digger Relationship Specialty Start Date End Date None, Physician [address] [place] [address] PCP - General 04/28/23 Nicola Martinez MD [address] [place] [address] Family Medicine 04/22/21 documented as of this encounter
--- OUTSIDE RECORDS SUMMARY | 2024-07-12 23:51 | XMS_ITS | Patient Health Summary ---
Author Organization [facility] [employer] Address [address] [place] [address] Care Team Providers Care Airdox Fitter Name Role Phone Nicola Martinez MD Unavailable [phone] None, Physician Primary Care Provider Unavailabl e Note from [facility],non-owned Affiliates and Associated Physician Practices is amultiple site organization consisting of ambulatory clinics and hospital sitesin [place], [place], [place] and [place]. This disclosure is being madepursuant to the Care Everywhere program and may not contain all information available regarding this patient. Last updated 18.[facility] [employer] Allergies * Lidocaine(Unknown) * Succinylcholine(Anaphylaxis) -High Criticality Medications * Be aware that medications may not be up to date on this document. Alwaysverify current medications with the patient. * buPROPion XL 24hr (Wellbutrin-XL) 300 MG tablet(Started 03/29/2023) * busPIRone (Buspar) 15 MG tablet(Started 03/16/2023) * meloxicam (Mobic) 15 MG tablet(Started 04/15/2023) Take 1 (one) tablet by mouth once daily Social History Tobacco Use Types Packs/Day Years [...] T Respiratory Rate 13 09/14/2015 10:45 PM FRAME ALIGNER Oxygen Saturation 98% 04/28/2023 9:09 AM CDT Inhaled Oxygen Concentration - - Weight 71.7 kg (158 lb) 04/28/2023 9:09 AM CDT Height 157.5 cm (5' 2 ) 04/28/2023 9:09 AM CDT Body Mass Index 28.9 04/28/2023 9:09 AM CDT Procedures * OK DESTRUCT BENIGN LESION, 1-14(Performed 09/13/2023) Performed for Neoplasm of uncertain behavior of skin * CT HEAD WO CONTRAST(Performed 09/14/2015) Performed for Acute intractable headache, unspecified headache type * EKG 12-LEAD(Performed 09/14/2015) Performed for Acute intractable headache, unspecified headache type * PT PTT PANEL(Performed 09/14/2015) * MAGNESIUM BLOOD(Performed 09/14/2015) * COMPREHENSIVE METABOLIC PANEL(Performed 09/14/2015) * CBC W AUTO DIFFERENTIAL(Performed 09/14/2015) * OXYGEN(Performed 09/14/2015) Results * OK DESTRUCT BENIGN LESION, 1-14 (09/13/2023 12:24 PM FRAME ALIGNER) Narrative Ruba Sullivan MD - 09/13/2023 12:24 PM FRAME ALIGNER Adonay Hull MD ? 09/13/2023 12:25 PM Procedure: NUB destruction Consent: Verbal Location: 1 lesion treated on nasal tip Anesthesia: 1% lidocaine with epinephrine LN2 used for several lesions along with gentle hyfrecation with ConMed at setting 10 Hemostasis achieved Vaseline and bandaids applied Wound care reviewed The patient tolerated the procedure without complications Ruba Sullivan MD PROCEDURE/MINOR GAN RGICAL ORDERABLES * CT HEAD NON CONTRAST (09/14/2015 10:00 PM FRAME ALIGNER) Anatomical Region Laterality Modality Head Computed Tomogra phy 09/15/2015 6:37 AM FRAME ALIGNER Impressions 09/15/2015 6:40 AM FRAME ALIGNER No acute intracranial findings on non- contrast CT of the head. Narrative 09/15/2015 6:[address] brain without contrast. HISTORY: Headache Technique: [...] ORDERABLES * EKG 12-LEAD (09/14/2015 9:43 PM [facility]) Ventricular Rate 80 BPM [facility] Atrial Rate 80 BPM [facility] P-R Interval 116 ms [facility] QRS Duration ms 74 ms [facility] Q-T Interval ms 376 ms [facility] QTC Calculation (Bezet) 433 ms [facility] Calculated P [place] 51 degrees [facility] Calculated R [place] 49 degrees [facility] Calculated T [place] 46 degrees [facility] Interpretation EKG Normal sinus rhythm Nonspecific ST and T wave abnormality Abnormal ECG No previous ECGs available Confirmed by RICHARDSON HANNA, [facility] ([id number]) on 09/15/2015 10:23:35 AM [facility] MUSE 09/14/2015 9:43 PM [facility] 09/15/2015 10:23 AM [facility] Jhon Villasenor DO ECG ORDERABLES [facility] * PT PTT PANEL (09/14/2015 9:38 PM [facility]) PT 10.2 9.5 - 11.6 sec 09/14/2015 10:04 PM [facility] INR 1.0 0.9 - 1.1 09/14/2015 10:04 PM [facility] PTT 24.3 21.0 - 32.0 sec 09/14/2015 10:04 PM [facility] Blood BLOOD SPECIMEN / Unknown 09/14/2015 9:38 PM FRAME ALIGNER 09/14/2015 9:39 PM [facility] - 09/14/2015 10:04 PM FRAME ALIGNER Conventional Warfarin Anticoagulant Therapy: INR Reference Range: ??2.0-3.0 Intensive Warfarin Anticoagulant Therapy: INR Reference Range: ? 2.5-3.5 Heparin Therapeutic Range for PTT: 44.4 - 78.3 seconds. Jhon Villasenor DO LAB - COAGULATION O RDERABLES [facility] [address] [place] [address] * (ABNORMAL) CBC W AUTO DIFFERENTIAL (09/14/2015 9:38 PM [facility]) WBC 9.2 4.4 - 10.7 x10^9/L 09/14/2015 9:41 PM [facility] WBC Corrected x10^9/L 09/14/2015 9:41 PM [facility] RBC 4.69 3.80 - 5.20 x10^12/L 09/14/2015 9:41 PM [facility] Hemoglobin 13.5 12.0 - 15.6 gm/dL 09/14/2015 9:41 PM [facility] Hematocrit 39.9 35.9 - 45.5 % 09/14/2015 9:41 PM [facility] MCV 85.1 80.7 - 98.3 fl 09/14/2015 9:41 PM [facility] MCH 28.8 26.7 - 34.0 pg 09/14/2015 9:41 PM [facility] MCHC 33.8 30.8 - 35.9 gm/dL 09/14/2015 9:41 PM [facility] Platelet Count 274 153 - 416 x10^9/L 09/14/2015 9:41 PM [facility] RDW-CV 12.5 12.1 - 14.9 % 09/14/2015 9:41 PM [facility] MPV 10.4 9.4 - 12.9 fl 09/14/2015 9:41 PM [facility] Neutrophils % 47.1 44.0 - 73.0 % 09/14/2015 9:41 PM [facility] Lymphocytes % 44.1(H) 20.0 - 43.0 % 09/14/2015 9:41 PM [facility] Monocytes % 6.0 5.0 - 13.0 % 09/14/2015 9:41 PM [facility] Eosinophils % 1.9 0.0 - 6.0 % 09/14/2015 9:41 PM [facility] Basophils % 0.7 0.0 - 2.0 % 09/14/2015 9:41 PM [facility] Immature Granulocytes 0.2 0 - 1 % 09/14/2015 9:41 PM [facility] Neutrophil Absolute 4.33 2.01 - 7.14 x10^9/L 09/14/2015 9:41 PM [facility] Lymphocytes Absolute 4.04(H) 1.07 - 3.94 x10^9/L 09/14/2015 9:41 PM [facility] Monocytes Absolute 0.55 0.26 - 1.07 x10^9/L 09/14/2015 9:41 PM [facility] Eosinophils Absolute 0.17 0 - 0.47 x10^9/L 09/14/2015 9:41 PM [facility] Basophils Absolute 0.06 0 - 0.08 x10^9/L 09/14/2015 9:41 PM [facility] Immature Granulocytes Absolute 0.02 0.00 - 0.06 x10^9/L 09/14/2015 9:41 PM [facility] nRBC Auto 0 /100 WBC 09/14/2015 9:41 PM [facility] Blood BLOOD SPECIMEN / Unknown 09/14/2015 9:38 PM FRAME ALIGNER 09/14/2015 9:38 PM [facility] Jhon Villasenor DO LAB - HEMATOLOGY OR DERABLES [facility] [address] [place] [address] * (ABNORMAL) COMPREHENSIVE METABOLIC PANEL (09/14/2015 9:38 PM [facility]) [facility] Signature Glucose 119(H) 74 - 106 mg/dL 09/14/2015 9:56 PM [facility] Sodium 138 136 - 145 mmol/L 09/14/2015 9:56 PM [facility] Potassium 3.7 3.5 - 5.1 mmol/L 09/14/2015 9:56 PM [facility] Chloride 103 98 - 107 mmol/L 09/14/2015 9:56 PM [facility] CO2 24 22 - 31 mmol/L 09/14/2015 9:56 PM [facility] Calcium 9.2 8.5 - 10.1 mg/dL 09/14/2015 9:56 PM [facility] Anion Gap 11 5 - 20 mmol/L 09/14/2015 9:56 PM [facility] BUN 19 7 - 21 mg/dL 09/14/2015 9:56 PM [facility] Creatinine 0.90 0.50 - 1.30 mg/dL 09/14/2015 9:56 PM [facility] Alkaline Phosphatase 57 38 - 126 U/L 09/14/2015 9:56 PM [facility] ALT 22 12 - 78 U/L 09/14/2015 9:56 PM [facility] AST 15 5 - 40 U/L 09/14/2015 9:56 PM [facility] Protein Total 8.0 6.4 - 8.2 gm/dL 09/14/2015 9:56 PM [facility] Albumin 4.2 3.4 - 5.0 gm/dL 09/14/2015 9:56 PM [facility] Bilirubin Total 0.5 0.2 - 1.0 mg/dL 09/14/2015 9:56 PM [facility] eGFR by MDRD >60 >60 mL/min/1.7 3m2 09/14/2015 9:56 PM [facility] eGFR by MDRD >60 >60 mL/min/1.7 3m2 09/14/2015 9:56 PM [facility] Blood BLOOD SPECIMEN / Unknown 09/14/2015 9:38 PM [facility] 09/14/2015 9:38 PM [facility] Jhon Villasenor DO LAB - CHEMISTRY ORD ERABLES [facility] [address] [place] [address] * MAGNESIUM BLOOD (09/14/2015 9:38 PM [facility]) Magnesium 2.2 1.6 - 2.6 mg/dL 09/14/2015 9:56 PM FRAME ALIGNER [facility] Blood BLOOD SPECIMEN / Unknown 09/14/2015 9:38 PM FRAME ALIGNER 09/14/2015 9:38 PM FRAME ALIGNER Jhon Villasenor DO LAB - CHEMISTRY ORD ERABLES [facility] [address] [place] [address] Care Teams Airdox Fitter Relationship Specialty Start Date End Date None, Physician [address] [place] [address] PCP - General 04/28/23 Nicola Martinez MD [address] [place] [address] Family Medicine 04/22/21
--- OUTSIDE RECORDS SUMMARY | 2024-07-12 23:51 | XMS_ITS | Encounter Summary ---
Author Organization [facility] Address [address] [place] [address]. [place], [place] [address] [place] [address] Care Team Providers Care Associate Professor Of Automation Name Role Phone Brenton Vora MD Primary Care Provider [phone] Reason for Visit * Reason Comments Injection LEFT knee Encounter Details Date Type Department Care Team (Late st Contact Info) Description 11/02/2023 10:00 AM CDT Office Visit [place] [phone] Charlotte Castro, [facility]- [address] [facility] [place] [address] Injection (LEFT knee) Social History Tobacco Use Types Packs/Day Years Used Date Smoking Tobacco: Never Smokeless Tobacco: Never Tobacco Cessation:Counseling Given: Not Answered Alcohol Use Standard Drinks/Week Comments Not Currently 0 (1 standard drink = 0.6 oz pur e alcohol) Comments No Sex and Gender Information Value Date Recorded Sex Assigned at Not on file Legal Sex Female 10:30 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 She reports pain to the posterior aspect of her LEFT knee. She denies numbness, tingling and bruising. She reports some swelling. She reportspain worsens when twisting her knee. She reports occasional night pain. She takes Meloxicam PRN. She does not use ice or heat. She does not use any ambulatory devices. She last had injection on 05/17/2023 with good relief for 5 months. She works a [employer]. No additional nursing task documentation needed. Vitals: 11/02/23 0952 Weight: 70.3 kg (155 lb) Height: 1.6 m (5' 3 ) Current Outpatient Medications Medication Sig buPROPion XL (WELLBUTRIN XL) 300 MG 24 hr tablet Take 1 tablet (300 mg total) by mouth daily. busPIRone (BUSPAR) 15 MG tablet 1 tablet (15 mg total). hydrOXYzine (ATARAX) 10 MG tablet meloxicam (MOBIC) 15 MG tablet Take 1 tablet (15 mg total) by mouth daily. Past Surgical History: Procedure Laterality Date CARPAL TUNNEL RELEASE KNEE SURGERY Allergies Succinylcholine [x] Total Jyrf-co-Zxpu Assessment Time: 0-15 minutes Additional Contributory Factors NONE * Charlotte Castro, HUMAN PROJECTILE-BC - 11/02/2023 10:00 AM CDT Chief Complaint: Injection (LEFT knee) History of Present Illness: Briseyda Boyle is a 53-year-old female who presents to the office for Injection (LEFT knee) Patient presents to clinic today for LEFT knee injection. She reports pain to the posterior aspect of her LEFT knee. She denies numbness, tingling and bruising. She reports some swelling. She reportspain worsens when twisting her knee. She reports occasional night pain. She takes Meloxicam PRN. She does not use ice or heat. She does not use any ambulatory devices. She last had injection on 05/17/2023 with good relief for 5 months. She works a [employer]. ROS: See HPI for pertinent positives Problem [...] Never Smokeless tobacco: Never Vaping Use Vaping status: Never Used Substance and Sexual Activity Alcohol use: Not Currently Drug use: Not Currently Sexual activity: Not Currently Medications: Current Outpatient Medications: buPROPion XL (WELLBUTRIN XL) 300 MG 24 hr tablet, Take 1 tablet (300 mg total) by mouth daily., Disp: , Rfl: busPIRone (BUSPAR) 15 MG tablet, 1 tablet (15 mg total)., Disp: , Rfl: hydrOXYzine (ATARAX) 10 MG tablet, , Disp: , Rfl: meloxicam (MOBIC) 15 MG tablet, Take 1 tablet (15 mg total) by mouth daily., Disp: 30 tablet, Rfl: 0 Review of patient's allergies indicates: Allergen Reactions Succinylcholine Unknown Objective: Body mass index is 27.46 kg/m??. Last Recorded Weight 11/02/23 0952 Weight: 70.3 kg (155 lb) Physical exam: Constitutional: Alert and in no acute distress. Neurological: The patient was oriented to person, place, and time. Eyes: The sclera and conjunctiva were normal ENT: Hearing was normal. Neck: The appearance of the neck was normal. Cardiovascular: Normal pulses. Pulmonary: No respiratory distress. Skin: No injuries or skin lesion. Musculoskeletal: Exam of left knee today demonstrates tenderness primarily medial with palpation, good knee range of motion, slight antalgic gait, no redness or warmth, slight joint effusion, no groin pain with hip rotation, positive patellar grind, neurovascularly intact. Assessment: Encounter Diagnose(s) ICD-10-CM SNOMED CT(R) 1. Osteoarthritis of left patellofemoral joint M17.12 OSTEOARTHRITIS OF LEFT PATELLOFEMORAL JOINT methylPREDNISolone acetate (DEPO-Medrol) injection 80 mg lidocaine (XYLOCAINE) 1 % injection SOLN 8 mL Plan: Patient has had previous injection with good relief in her symptoms. She voices that she still wants to remain conservative as long as possible. She has changed jobs and is on flat ground versus having to do frequent stairs. Since she has had good relief she was given another cortisone injection inthe office today and tolerated well. I have encouraged for her to continue to remain active and hope fully with her job change this will allow the injection to possibly last longer. If she gets good relief we can repeat injections every 3 months as needed for pain. If she does not see significant relief we can then proceed with viscosupplementation if needed. Activity as tolerated. She will follow-up as needed. Follow up: Return if symptoms [...] 8 mL, Other, Once, 1 dose, On Tue11/02/23 at 1015Indications:Osteoarthritis of left patellofemoral joint Given 11/02/2023 10:00 AM CDT 8 mLs Left Knee methylPREDNISolone acetate (DEPO-Medrol) injection 80 mg 80 mg, Other, Once, 1 dose, On Tue11/02/23 at 1015, Shake WellIndications:Osteoarthritis of left patellofemoral joint Given 11/02/2023 9:59 AM CDT 80 mg Left Knee documented in this encounter Care Teams Associate Professor Of Automation Relationship Specialty Start Date End Date Brenton Vora MD [address] [place] [id number] PCP - General FAMILY PRACTICE 09/09/22 documented as of this encounter
--- OUTSIDE RECORDS SUMMARY | 2024-07-12 23:52 | XMS_ITS | Encounter Summary ---
Author Organization [facility] Address [address] [place] [address]. 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
--- OUTSIDE RECORDS SUMMARY | 2024-07-12 23:52 | XMS_ITS | Encounter Summary ---
Author Organization [facility] Address [address] [place] [address]. [place], [place] [address] [place] [address] Care Team Providers Care Residential Solar Sales Consultant Name Role Phone Lu Grace Primary Care Provider [phone] Reason for Visit * Reason Comments Rectal Problem Encounter Details Date Type Department Care Team (Late st Contact Info) Description 04/19/2020 9:43 AM CDT - 04/19/2020 10:40 AM CDT Emergency [facility] [address] [place] [address] Donny Steinberg Jr., MD [address] [place] [id number] Rectal Problem Discharge Disposition: Home or Self Care (Routine Discharge) Social History Tobacco Use Types Packs/Day Years Used Date Smoking Tobacco: Never Smokeless Tobacco: Never Alcohol Use Standard Drinks/Week Comments Not Currently 0 (1 standard drink = 0.6 oz pur e alcohol) Comments No Sex and Gender Information Value Date Recorded Sex Assigned at Not on file 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 No / Unsure 04/19/2020 9:29 AM CDT documented as of this encounter Last Filed Vital Signs Vital Sign Reading Time Taken Comments Blood Pressure 155/120 04/19/2020 9:34 AM CDT Pulse 93 04/19/2020 9:34 AM CDT Temperature 36.7 ??C (98.1 ??F) 04/19/2020 9:34 AM CD T Respiratory Rate 18 04/19/2020 9:34 AM CDT Oxygen Saturation 96% 04/19/2020 9:34 AM CDT Inhaled Oxygen Concentration - - Weight 63.5 kg (140 lb) 04/19/2020 9:34 AM CDT Height 160 cm (5' 3 ) 04/19/2020 9:34 AM CDT Body Mass Index 24.8 04/19/2020 9:34 AM CDT documented in this encounter Discharge Instructions * Attachments The following attachments cannot be sent through Care Everywhere. * Anal Fissure Discharge Instructions (Gambian) documented in this encounter Medications at Time of Discharge atorvastatin 10 MG tablet Take 1 tablet (10 mg total) by mouth nightly at bedtime. 3 buPROPion XL 150 MG 24 hr tablet Take 150 mg by mouth daily. 02/14/2020 3 gabapentin 300 MG capsule Take 300 mg by mouth 3 (three) times daily. 1 Lidocaine HCl (LIDOCAINE 1.5%/NIFEDIPINE 0.3% COMPOUNDED OINT)Indications :0.2% ointment Indications: 0.2% ointment APPLY EXTERNALLY 2 TIMES A DAY AND NEEDED AFTER BOWEL MOVEMENT 1 Nitroglycerin 0.4 % Ointment 1 traMADol 50 MG tabletIndication s:Acute Pain < 3 Day Supply Take 1 tablet (50 mg total) by mouth every 8 (eight) hours as needed for Pain. Indications: Acute Pain < 3 Day Supply 9 tablet 04/19/2020 1 venlafaxine 75 MG tablet Take 2 tablets (150 mg total) by mouth daily. 3 documented as of this encounter ED Notes * Donny Steinberg Jr., MD - 04/19/2020 10:23 AM CDT eMERGENCY dEPARTMENT eNCOUnter CHIEF COMPLAINT Chief Complaint Patient presents with ??? Rectal Problem HPI HPI Maday Boyle is a 49-year-old female who presents to the ER with a complaint of anal fissures. Patient states she has had anal fissures for 3 months, and has been on a variety of topical medications and gabapentin for pain she is also been taking Metamucil and significant quantities. She is nothad any improvement in her symptoms. She continues to have very painful bowel movements and perianal pain in general ALLERGIES Allergies Allergen Reactions ??? Succinylcholine Unknown CURRENT MEDICATIONS Current Outpatient Medications Medication Sig ??? atorvastatin 10 MG tablet Take 10 mg by mouth nightly at bedtime. ??? gabapentin 300 MG capsule Take 300 mg by mouth 3 (three) times daily. ??? Lidocaine HCl (LIDOCAINE 1.5%/NIFEDIPINE 0.3% COMPOUNDED OINT) Indications: 0.2% ointment APPLYEXTERNALLY 2 TIMES A DAY AND NEEDED AFTER BOWEL MOVEMENT ??? Nitroglycerin 0.4 % Ointment ??? traMADol 50 MG tablet Take 1 tablet (50 mg total) by mouth every 8 (eight) hours as needed for Pain. Indications: Acute Pain < 3 Day Supply ??? venlafaxine 75 MG tablet Take 75 mg by mouth 2 (two) times daily with meals. PAST MEDICAL HISTORY Past Medical History: Diagnosis Date ??? Anal fissure SURGICAL HISTORY Past Surgical History: Procedure Laterality Date ??? CARPAL TUNNEL RELEASE ??? KNEE SURGERY SOCIAL HISTORY Social History Socioeconomic History ??? Marital status: Single Spouse name: Not on file ??? Number of children: Not on file ??? Years of education: Not on file ??? Highest education level: Not on file Occupational History ??? Not on file Social Needs ??? Financial resource strain: Not on file ??? Food insecurity: Worry: Not on file Inability: Not on file ??? Transportation needs: Medical: Not on file Non-medical: Not on file Tobacco Use ??? Smoking status: Never Smoker ??? Smokeless tobacco: Never Used Substance and Sexual Activity ??? Alcohol use: Not Currently ??? Drug use: Not Currently ??? Sexual activity: Not Currently Lifestyle ??? Physical activity: Days per week: Not on file Minutes per session: Not on file ??? Stress: Not on file Relationships ??? Social connections: Talks on phone: Not on file Gets together: Not on file Attends anabaptist service: Not on file Active member of club or organization: Not on file Attends meetings of clubs or organizations: Not on file Relationship status: Not on file ??? Intimate partner violence: Fear of current or ex partner: Not on file Emotionally abused: Not on file Physically abused: Not on file Forced sexual activity: Not on file Other Topics Concern ??? Not on file Social History Narrative ??? Not on file FAMILY HISTORY No family history on file. REVIEW OF SYSTEMS Review of Systems No fevers chills All other ROS negative unless noted above in HPI. PHYSICAL EXAM Physical Exam Filed Vitals: 04/19/20 0934 BP: (!) 155/120 Pulse: 93 Resp: 18 Temp: 98.1 ??F (36.7 ??C) TempSrc: Oral SpO2: 96% Weight: 63.5 kg (140 lb) Height: 5' 3 (1.6 m) General. Alert and oriented patient is standing due to pain H EENT; unremarkable Lungs; clear Heart: Regular rate and rhythm Abdomen; soft nontender Rectal; there are sentinel piles of both 6 and 12:00, there is no swelling or erythema or drainage Extremities; unremarkable Neuro intact EKG RADIOLOGY No orders to display LABS No results found for this visit on 04/19/20. ED MEDICATIONS Medications - No data to display PROCEDURES Procedures CONSULTS: ED COURSE & MEDICAL DECISION MAKING MDM Chronic anal fissure disease Explained to patient she likely will require surgery as she appears to have failed conservative methods. FINAL IMPRESSION SNOMED CT(R) 1. Chronic anal fissure CHRONIC ANAL FISSURE DAMION Franco [address] [facility] [id number] In 1 week New Prescriptions TRAMADOL 50 MG TABLET Take 1 tablet (50 mg total) by mouth every 8 (eight) hours as needed for Pain. Indications: Acute Pain < 3 Day Supply Donny Steinberg Jr., MD 04/19/20 1033 * Kaylin Puente RN - 04/19/2020 10:10 AM CDT Rectal exam at bed side with provider * Kaylin Puente RN - 04/19/2020 9:36 AM CDT Is being treated for anal fissures, onset 3-4 months, states she can not sleep, or sit, has been seen at [facility]. And has been using intra-anal nitroglycerin 0.4% cream, nifedipine 0.2% oint qid, metamucil and nothing is helping. documented in this encounter Plan of Treatment Not on file documented as of this encounter Visit Diagnoses Diagnosis Chronic anal fissure- Primary Anal fissure documented in this encounter Care Teams Residential Solar Sales Consultant Relationship Specialty Start Date End Date Lu Grace PA [address] [place] [address] PCP - General PHYSICIAN BUFFING MACHINE OPERATOR SEMIAUTOMATIC 04/19/20 09/08/22 documented as of this encounter
--- OUTSIDE RECORDS SUMMARY | 2024-07-12 23:52 | XMS_ITS | Encounter Summary ---
Author Organization [facility] Address [address] [place] [address]. 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
--- OUTSIDE RECORDS SUMMARY | 2024-07-12 23:52 | XMS_ITS | Encounter Summary ---
Author Organization [facility] Address [address] [place] [address]. 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
--- OUTSIDE RECORDS SUMMARY | 2024-07-12 23:52 | XMS_ITS | Encounter Summary ---
Author Organization [facility] Address [address] [place] [address]. [place], [place] [address] [place] [address] Care Team Providers Care High School English Teacher Name Role Phone Lu Grace Primary Care Provider [phone] Encounter Details Date Type Department Care Team (Latest Contact Info) Description 04/19/2020 Travel Social History Tobacco Use Types Packs/Day Years Used Date Smoking Tobacco: Never Smokeless Tobacco: Never Alcohol Use Standard Drinks/Week Comments Not Currently 0 (1 standard drink = 0.6 oz pur e alcohol) Comments No Sex and Gender Information Value Date Recorded Sex Assigned at Not on file Legal Sex Female 10:30 PM MEDICINE 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
--- OUTSIDE RECORDS SUMMARY | 2024-07-13 02:40 | XMS_ITS | Clinical Summary ---
Author Organization [facility] Address [address] [place] [address]. [place], [place] [address] [place] [address] Care Team Providers Care Windows Application Developer Name Role Phone Brenton Vora MD Primary Care Provider [phone] Allergies Active Allergy Reactions Criticality Noted Date [...] on file Legal Sex Female 10:30 PM TRAFFIC CONTROL TECHNICIAN Gender Identity Not on file Sexual Orientation [...] patient's age to complete this topic Insurance [facility] [place] [address] [address] [place] [address] Care Teams Windows Application Developer Relationship Specialty Start Date End Date Brenton Vora MD [address] [place] [phone] PCP - General FAMILY PRACTICE 09/09/22
--- OUTSIDE RECORDS SUMMARY | 2024-07-13 02:40 | XMS_ITS | Encounter Summary ---
Author Organization [facility] Address [address] [place] [address]. [place], [place] [address] [place] [address] Care Team Providers Care Dining Car Waiter/Waitress Name Role Phone Lu Grace Primary Care Provider [phone] Encounter Details Date Type Department Care Team (Latest Contact Info) Description 04/22/2022 4:00 PM CDT - 04/22/2022 11:59 PM CDT Hospital Encounter [facility] [address] [place] [address] Wilber Hamilton MD [address] [place] [address] Discharge Disposition: Home or Self Care (Routine Discharge) Social History Tobacco Use Types Packs/Day Years Used Date Smoking Tobacco: Never Smokeless Tobacco: Never Alcohol Use Standard Drinks/Week Comments Not Currently 0 (1 standard drink = 0.6 oz pur e alcohol) Comments No Sex and Gender Information Value Date Recorded Sex Assigned at Not on file Legal Sex Female 10:30 PM COAL WASHER Gender Identity Not on file Sexual Orientation [...] knee documented in this encounter Care Teams Dining Car Waiter/Waitress Relationship Specialty Start Date End Date Lu Grace PA [address] [place] [address] PCP - General PHYSICIAN LONGWALL MACHINE OPERATOR HELPER 04/19/20 09/08/22 documented as of this encounter
--- OUTSIDE RECORDS SUMMARY | 2024-07-13 02:40 | XMS_ITS | Encounter Summary ---
Author Organization [facility] Address [address] [place] [address]. [place], [place] [address] [place] [address] Care Team Providers Care Instrument Mechanic Name Role Phone Brenton Vora MD Primary Care Provider [phone] Encounter Details Date Type Department Care Team (Late st Contact Info) Description 11/02/2023 [facility] Message Enc [address] [address] Charlotte Castro, [address] [place] [address] Visit Follow Up Social History Tobacco Use Types Packs/Day Years Used Date Smoking Tobacco: Never Smokeless Tobacco: Never Alcohol Use Standard Drinks/Week Comments Not Currently 0 (1 standard drink = 0.6 oz pur e alcohol) Comments No Sex and Gender Information Value Date Recorded Sex Assigned at Not on file Legal Sex Female 10:30 PM CALL CENTER OPERATIONS MANAGER Gender Identity Not on file Sexual Orientation Not on file documented as of this encounter Plan of Treatment Not on file documented as of this encounter Visit Diagnoses Not on filedocumented in this encounter Care Teams Instrument Mechanic Relationship Specialty Start Date End Date Brenton Vora MD [address] [place] [phone] PCP - General FAMILY PRACTICE 09/09/22 documented as of this encounter
--- OUTSIDE RECORDS SUMMARY | 2024-07-13 02:40 | XMS_ITS | Encounter Summary ---
Author Organization [facility] Address [address] [place] [address]. [place], [place] [address] [place] [address] Care Team Providers Care Advisor To Command In Combat Name Role Phone Lu Grace Primary Care Provider [phone] Encounter Details Date Type Department Care Team [...] on file Legal Sex Female 10:30 PM AGRICULTURAL SCIENCE PROFESSOR Gender Identity Not on file Sexual Orientation [...] on filedocumented in this encounter Care Teams Advisor To Command In Combat Relationship Specialty Start Date End Date Lu Grace PA [address] [place] [address] PCP - General PHYSICIAN LOCKSTITCH ZIPPER SETTER 04/19/20 09/08/22 documented as of this encounter
--- OUTSIDE RECORDS SUMMARY | 2024-07-13 02:40 | XMS_ITS | Clinical Summary ---
Author Organization [facility] Address [address] [place] [address] Care Team Providers Care Industrial Garage Servicer Name Role Phone Nicola Martinez MD Unavailable [phone] None, Physician Primary Care Provider Unavailabl e Source Comments [facility],non-owned Affiliates and Associated Physician Practices is amultiple site organization consisting of ambulatory clinics and hospital sitesin [place], [place], [place] and [place]. This disclosure is being madepursuant to the Care Everywhere program and may not contain all information available regarding this patient. Last updated 18.[facility] Allergies Active Allergy Reactions Criticality Noted Date [...] T Respiratory Rate 13 09/14/2015 10:45 PM DOG GROOMER Oxygen Saturation 98% 04/28/2023 9:09 AM CDT [...] COMPREHENSIVE METABOLIC PANEL STAT 09/14/2015 9:38 PM DOG GROOMER from Last 3 Months or Most Recently Relevant to Health Maintenance Results * (ABNORMAL) COMPREHENSIVE METABOLIC PANEL (09/14/2015 9:38 PM DOG GROOMER) [facility] Signature Glucose 119(H) 74 - 106 mg/dL 09/14/2015 9:56 PM [facility] Sodium 138 136 - 145 mmol/L 09/14/2015 9:56 PM [facility] Potassium 3.7 3.5 - 5.1 mmol/L 09/14/2015 9:56 PM [facility] Chloride 103 98 - 107 mmol/L 09/14/2015 9:56 PM [facility] CO2 24 22 - 31 mmol/L 09/14/2015 9:56 PM [facility] Calcium 9.2 8.5 - 10.1 mg/dL 09/14/2015 9:56 PM [facility] Anion Gap 11 5 - 20 mmol/L 09/14/2015 9:56 PM [facility] BUN 19 7 - 21 mg/dL 09/14/2015 9:56 PM [facility] Creatinine 0.90 0.50 - 1.30 mg/dL 09/14/2015 9:56 PM [facility] Alkaline Phosphatase 57 38 - 126 U/L 09/14/2015 9:56 PM [facility] ALT 22 12 - 78 U/L 09/14/2015 9:56 PM [facility] AST 15 5 - 40 U/L 09/14/2015 9:56 PM [facility] Protein Total 8.0 6.4 - 8.2 gm/dL 09/14/2015 9:56 PM [facility] Albumin 4.2 3.4 - 5.0 gm/dL 09/14/2015 9:56 PM [facility] Bilirubin Total 0.5 0.2 - 1.0 mg/dL 09/14/2015 9:56 PM [facility] eGFR by MDRD >60 >60 mL/min/1.7 3m2 09/14/2015 9:56 PM [facility] eGFR by MDRD >60 >60 mL/min/1.7 3m2 09/14/2015 9:56 PM [facility] Blood BLOOD SPECIMEN / Unknown 09/14/2015 9:38 PM DOG GROOMER 09/14/2015 9:38 PM [facility] Jhon Villasenor DO LAB - CHEMISTRY ORD ERABLES [facility] [address] [place] [address] from Last 3 Months or Most Recently Relevant to Health Maintenance Care Teams Industrial Garage Servicer Relationship Specialty Start Date End Date None, Physician [address] [place] [address] PCP - General 04/28/23 Nicola Martinez MD [address] [place] [address] Family Medicine 04/22/21
--- OUTSIDE RECORDS SUMMARY | 2024-07-13 02:40 | XMS_ITS | Encounter Summary ---
Author Organization [facility] Address [address] [place] [address]. [place], [place] [address] [place] [address] Care Team Providers Care Senior Enlisted Advisor Name Role Phone Lu Grace Primary Care Provider [phone] Encounter Details Date Type Department Care Team [...] on file Legal Sex Female 10:30 PM BULLET MAKER Gender Identity Not on file Sexual Orientation [...] filedocumented in this encounter Care Teams Senior Enlisted Advisor Relationship Specialty Start Date End Date Lu Grace PA [address] [place] [address] PCP - General PHYSICIAN QUARTER INSPECTOR 04/19/20 09/08/22 documented as of this encounter
--- OUTSIDE RECORDS SUMMARY | 2024-07-13 02:40 | XMS_ITS | Encounter Summary ---
Author Organization [facility] Address [address] [place] [address]. [place], [place] [address] [place] [address] Care Team Providers Care Hydrogenation Still Operator Name Role Phone Lu Grace Primary Care Provider [phone] Encounter Details Date Type Department Care Team (Late st Contact Info) Description 07/22/2021 Orders Only [facility] [address] [place] [address] Cristel Rivera, [facility] [address] [place] [address] Social History Tobacco Use Types Packs/Day Years Used Date Smoking Tobacco: Never Smokeless Tobacco: Never Alcohol Use Standard Drinks/Week Comments Not Currently 0 (1 standard drink = 0.6 oz pur e alcohol) Comments No Sex and Gender Information Value Date Recorded Sex Assigned at Not on file Legal Sex Female 10:30 PM PROBLEM MANAGER Gender Identity Not on file Sexual Orientation Not on file COVID-19 Exposure Response Date Recorded In the last month, have you been in contact with someone who was confirmed or suspected to have Coronavirus / COVID-19? No / Unsure 07/22/2021 10:53 AM PROBLEM MANAGER documented as of this encounter Plan of Treatment Not on file documented as of this encounter Results * CORONAVIRUS (COVID 19) PCR (07/22/2021 11:10 AM PROBLEM MANAGER) SPEC DESCRIPTION NASAL 07/22/20 1:21 PM PROBLEM MANAGER [facility] CORONAVIRUS SARS COV 2 PCR (RESP) NEGATIVE NEGATIVE 07/23/2021 9:48 PM PROBLEM MANAGER [facility] Comment: THE SARS-CoV-2 TEST HAS BEEN AUTHORIZED BY THE FDA UNDER AN EUA FOR USE BY AUTHORIZED LABORATORIES. PERFORMED BY NUCLEIC ACID AMPLIFICATION PCR FIRST TEST NO 07/22/2021 1:21 PM PROBLEM MANAGER [facility] EMPLOYED IN HEALTHCARE NO 07/22/2021 1:21 PM PROBLEM MANAGER [facility] SYMPTOMATIC DEFINED BY CDC NO 07/22/2021 1:21 PM PROBLEM MANAGER [facility] HOSPITALIZATION STATUS NO 07/22/2021 1:21 PM PROBLEM MANAGER [facility] PATIENT IN ICU NO 07/22/2021 1:21 PM PROBLEM MANAGER [facility] RESIDENT OF CONGREGATE CARE NO 07/22/2021 1:21 PM PROBLEM MANAGER [facility] NOT 07/22/2021 1:21 PM PROBLEM MANAGER [facility] NASAL STRUCTURE / Unknown 07/22/2021 11:10 AM PROBLEM MANAGER Cristel Rivera [facility] MICROBIOLOGY - GENERAL OR DERABLES Final Result [facility] [address] [place] [address], [facility] [address] [place] [address], [place] [phone] * CORONAVIRUS (COVID-19) ANTIGEN DIRECT OPTICAL (07/22/2021 11:10 AM PROBLEM MANAGER) CORONAVIRUS ANTIGEN IA NEGATIVE NEGATIVE 07/22/2021 11:41 AM PROBLEM MANAGER [facility] Comment: NEGATIVE RESULTS DO NOT RULE [...] LABORATORIES. SPECIMEN TYPE NASAL 07/22/2021 10:57 AM PROBLEM MANAGER [facility] FIRST TEST NO 07/22/2021 10:57 AM PROBLEM MANAGER [facility] EMPLOYED IN HEALTHCARE NO 07/22/2021 10:57 AM PROBLEM MANAGER [facility] SYMPTOMATIC DEFINED BY CDC NO 07/22/2021 10:57 AM PROBLEM MANAGER [facility] HOSPITALIZATION STATUS NO 07/22/2021 10:57 AM PROBLEM MANAGER [facility] PATIENT IN ICU NO 07/22/2021 10:57 AM PROBLEM MANAGER [facility] RESIDENT OF [facility] NO 07/22/2021 10:57 AM PROBLEM MANAGER [facility] NOT 07/22/2021 10:57 AM PROBLEM MANAGER [facility] Specimen from nose (specimen) NASAL STRUCTURE / Unknown 07/22/2021 11:10 AM PROBLEM MANAGER Cristel ALMENDAREZP- MICROBIOLOGY - GENERAL OR DERABLES Final Result Performing Organization Address City/State/[facility] de Phone Number [facility] [address] [employer] [place] [id number], documented in this encounter Visit Diagnoses Diagnosis Encounter for screening for other viral diseases- Primary documented in this encounter Additional Health Concerns Infection Onset Date Last Indicated Resolved Time COVID-19 Rule Out 07/22/2021 07/22/2021 07/22/2021 11:41 AM PROBLEM MANAGER COVID-19 Rule Out 07/22/2021 07/22/2021 07/23/2021 9:48 PM PROBLEM MANAGER documented as of this encounter Care Teams Hydrogenation Still Operator Relationship Specialty Start Date End Date Lu Grace PA [address] [place] [address] PCP - General PHYSICIAN DETENTION OFFICER 04/19/20 09/08/22 documented as of this encounter
--- OUTSIDE RECORDS SUMMARY | 2024-07-13 02:40 | XMS_ITS | Encounter Summary ---
Author Organization [facility] Address [address] [place] [address]. [place], [place] [address] [place] [address] Care Team Providers Care Billboard Mechanic Name Role Phone Lu Grace Primary Care Provider [phone] Encounter Details Date Type Department Care Team [...] on file Legal Sex Female 10:30 PM POWER DIGGER OPERATOR Gender Identity Not on file Sexual Orientation Not on file COVID-19 Exposure Response Date Recorded In the last month, have you been in contact with someone who was confirmed or suspected to have Coronavirus / COVID-19? No / Unsure 07/22/2021 10:53 AM POWER DIGGER OPERATOR documented as of this encounter Plan of Treatment Not on file documented as of this encounter Visit Diagnoses Not on filedocumented in this encounter Additional Health Concerns Infection Onset Date Last Indicated Resolved Time COVID-19 Rule Out 07/22/2021 07/22/2021 07/22/2021 11:41 AM POWER DIGGER OPERATOR COVID-19 Rule Out 07/22/2021 07/22/2021 07/23/2021 9:48 PM POWER DIGGER OPERATOR documented as of this encounter Care Teams Billboard Mechanic Relationship Specialty Start Date End Date Lu Grace PA [address] [place] [address] PCP - General PHYSICIAN COAL HAULER 04/19/20 09/08/22 documented as of this encounter
--- OUTSIDE RECORDS SUMMARY | 2024-07-13 02:40 | XMS_ITS | Encounter Summary ---
Author Organization [facility] - [facility] Address [address] [place] [address]. [place], [place] [address] [place] [address] Care Team Providers Care Pouring Crane Operator Name Role Phone Brenton Vora MD Primary Care Provider [phone] Encounter Details Date Type Department Care Team [...] on file Legal Sex Female 10:30 PM NURSE AIDE Gender Identity Not on file Sexual [...] on filedocumented in this encounter Care Teams Pouring Crane Operator Relationship Specialty Start Date End Date Brenton Vora MD [address] [place] [phone] PCP - General FAMILY PRACTICE 09/09/22 documented as of this encounter
--- OUTSIDE RECORDS SUMMARY | 2024-07-13 02:40 | XMS_ITS | Encounter Summary ---
Author Organization [facility] Address [address] [facility] [place] [address] Care Team Providers Care Silviculture Professor Name Role Phone Nicola Martinez MD Unavailable [phone] None, Physician Primary Care Provider Unavailabl e Reason for Referral * Consultation (Routine) - Closed Specialty Diagnoses / Procedures Referred By Pam lim Referred To Contact Diagnoses Telangiectasia Enoc Melchor MD [address] [facility] [place] [address] Referral ID Status Reason Start Date Expiration Date V isits Requested Visits Authorized [id number] Closed Specialty Services Required 04/28/2023 04/27/2024 1 1 Reason for Visit * Reason Comments Establish Care Encounter Details Date Type Department Care Team (Latest Contact Info) Description 04/28/2023 8:45 AM CDT Office Visit [facility] - Vascular Surgery [address] [place] [address], [place] [phone] Enoc Melchor MD [address] [facility] [place] [address] Telangiectasia (Primary Dx) Social History [...] diseases documented in this encounter Care Teams Silviculture Professor Relationship Specialty Start Date End Date None, Physician [address] [place] [address] PCP - General 04/28/23 Nicola Martinez MD [address] [place] [address] Family Medicine 04/22/21 documented as of this encounter
--- OUTSIDE RECORDS SUMMARY | 2024-07-13 02:40 | XMS_ITS | Encounter Summary ---
Author Organization [facility] Address [address] [place] [address]. [place], [place] [address] [place] [address] Care Team Providers Care Circular Sawyer Stone Name Role Phone Brenton Vora MD Primary Care Provider [phone] Reason for Visit * Reason Onset Date Comments Refill Request 05/24/2023 Encounter Details Date Type Department Care Team (Late st Contact Info) Description 05/24/2023 [place] [address] Charlotet Castro, [facility] [address] [place] [address] Refill Request Social History Tobacco Use Types Packs/Day Years Used Date Smoking Tobacco: Never Smokeless Tobacco: Never Alcohol Use Standard Drinks/Week Comments Not Currently 0 (1 standard drink = 0.6 oz pur e alcohol) Comments No Sex and Gender Information Value Date Recorded Sex Assigned at Not on file Legal Sex Female 10:30 PM ANESTHESIOLOGIST PHYSICIAN Gender Identity Not on file Sexual Orientation [...] a refill on her meloxicam. She uses [employer] and her number [phone] documented in this encounter Plan of Treatment Not on file documented as of this encounter Visit Diagnoses Not on filedocumented in this encounter Care Teams Circular Sawyer Stone Relationship Specialty Start Date End Date Brenton Vora MD [address] [place] [phone] PCP - General FAMILY PRACTICE 09/09/22 documented as of this encounter
--- OUTSIDE RECORDS SUMMARY | 2024-07-13 02:40 | XMS_ITS | Encounter Summary ---
Author Organization [facility] Address [address] [facility] [place] [address] Care Team Providers Care Baker Pastry Name Role Phone Nicola Martinez MD Unavailable None, Physician Primary Care Provider Unavailabl e Reason for Visit * Reason Comments Lesions New patient,spot on nose Encounter Details Date Type Department Care Team (Late st Contact Info) Description 09/13/2023 9:40 AM CAN TOP SETTER Office Visit [facility] - Dermatology [address] [place] [address], [facility] [place] [address] Adonay Hull MD [address] [place] [address] [place] [address] Neoplasm of uncertain behavior of [...] angioma vs. other -hyfercation Ruba Sullivan MD TOP SETTER * Adonay Hull MD - 09/13/2023 9:59 [...] of skin cancer: none Works outside ( [employer] ) for many years. Wears [id number] daily. Physical exam: Skin exam was conducted [...] as needed Billing Guide Adonay Hull MD [facility] Dermatology Resident TOP SETTER documented in this encounter Procedure Notes * Adonay Hull MD - 09/13/2023 12:24 PM CSTAssociated Order(s): PROC DESTRUCT BENIGN LESION NOT SKIN TAG Procedure(s): SC DESTRUCT BENIGN LESION, 1-14 Pre-Procedure Diagnose(s): Neoplasm of uncertain behavior of skin Procedure: NUB destruction Consent: Verbal Location: 1 lesion treated on nasal tip Anesthesia: 1% lidocaine with epinephrine LN2 used for several lesions along with gentle hyfrecation with ConMed at setting 10 Hemostasis achieved Vaseline and bandaids applied Wound care reviewed The patient tolerated the procedure without complications TOP SETTER Associated attestation - Ruba Sullivan MD - 09/15/2023 2:04 PM CAN TOP SETTER A procedure was performed. I was present for the entire procedure. See procedure note. Ruba Sullivan MD documented in this encounter Plan of Treatment Not on file documented as of this encounter Procedures Procedure Name Priority Date/Time Associated Diagnosis Comments SC DESTRUCT BENIGN LESION, 1-14 Routine 09/13/2023 12:24 PM CAN TOP SETTER Neoplasm of uncertain behavior of skin documented in this encounter Results * SC DESTRUCT BENIGN LESION, 1-14 (09/13/2023 12:24 PM CAN TOP SETTER) Narrative Ruba Sullivan MD - 09/13/2023 12:24 PM CAN TOP SETTER Adonay Hull MD ? 09/13/2023 12:25 PM [...] Primary documented in this encounter Care Teams Baker Pastry Relationship Specialty Start Date End Date None, Physician [address] [place] [address] PCP - General 04/28/23 Nicola Martinez MD [address] [place] [address] Family Medicine 04/22/21 documented as of this encounter
--- OUTSIDE RECORDS SUMMARY | 2024-07-13 02:40 | XMS_ITS | Encounter Summary ---
Author Organization [facility] Address [address] [place] [address]. [place], [place] [address] [place] [address] Care Team Providers Care Telesales Supervisor Name Role Phone Brenton Vora MD Primary Care Provider [phone] Reason for Visit * Reason Comments Injection LEFT knee Encounter Details Date Type Department Care Team (Late st Contact Info) Description 05/17/2023 4:30 [place] [address] Ann Marie Castro, [facility]- [address] [facility] [place] [address] Injection (LEFT knee) Social History Tobacco Use Types Packs/Day Years Used Date Smoking Tobacco: Never Smokeless Tobacco: Never Alcohol Use Standard Drinks/Week Comments Not Currently 0 (1 standard drink = 0.6 oz pur e alcohol) Comments No Sex and Gender Information Value Date Recorded Sex Assigned at Not on file Legal Sex Female 10:30 PM JAI ALAI PLAYER Gender Identity Not on file Sexual Orientation [...] months. 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 No additional nursing task documentation needed. Vitals: [...] RELEASE KNEE SURGERY Allergies Succinylcholine [x] Total Eojg-dw-Vrzf Assessment Time: 0-15 minutes Additional Contributory Factors NONE * Ann Marie Castro, FINISH MILL OPERATOR-BC - 05/17/2023 4:30 PM CDT Chief Complaint: [...] months. 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 PREVIOUS HPI:10/14/2022 Patient previously received a LEFT [...] and tingling noted. 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 ROS: See HPI for [...] or fail to improve. ANN MARIE CASTRO, FINISH MILL OPERATORWHIT documented in this encounter Plan of Treatment [...] Once, 1 dose, On Tue05/17/23 at 1715, [facility] WellIndications:Osteoarthritis of left patellofemoral joint Given 05/17/2023 4:46 PM CDT 80 mg Left Knee documented in this encounter Care Teams Telesales Supervisor Relationship Specialty Start Date End Date Brenton Vora MD [address] [place] [phone] PCP - General FAMILY PRACTICE 09/09/22 documented as of this encounter
--- OUTSIDE RECORDS SUMMARY | 2024-07-13 02:40 | XMS_ITS | Encounter Summary ---
Author Organization [facility] Address [address] [place] [address] Care Team Providers Care Oracle Erp Architect Name Role Phone Kunal Davis MD Primary Care Provider [phone] Nicola Martinez MD Unavailable [phone] Encounter Details Date Type Department Care Team [...] on filedocumented in this encounter Care Teams Oracle Erp Architect Relationship Specialty Start Date End Date Kunal Davis MD [address] [facility] [address] [place] [phone] PCP - General 04/22/21 04/27/23 Nicola Martinez MD [address] [place] [address] Family Medicine 04/22/21 documented as of this encounter
--- OUTSIDE RECORDS SUMMARY | 2024-07-13 02:40 | XMS_ITS | Referral Summary ---
Author Organization [facility] Address [address] [place] [address] Care Team Providers Care Board Attendant Name Role Phone Nicola Martinez MD Unavailable [phone] None, Physician Primary Care Provider Unavailabl e Source Comments [facility] [place] [facility],non-owned Affiliates and Associated Physician Practices is amultiple site organization consisting of ambulatory clinics and hospital sitesin [place], [place], [place] and [place]. This disclosure is being madepursuant to the Care Everywhere program and may not contain all information available regarding this patient. Last updated 18.[facility] Allergies Active Allergy Reactions Criticality Noted Date [...] T Respiratory Rate 13 09/14/2015 10:45 PM [facility] Oxygen Saturation 98% 04/28/2023 9:09 AM CDT Inhaled Oxygen Concentration - - Weight 71.7 kg (158 lb) 04/28/2023 9:09 AM CDT Height 157.5 cm (5' 2 ) 04/28/2023 9:09 AM CDT Body Mass Index 28.9 04/28/2023 9:09 AM CDT Plan of Treatment Not on file Procedures Procedure Name Priority Date/Time Associated Diagnosis Comments COMPREHENSIVE METABOLIC PANEL STAT 09/14/2015 9:38 PM PHLEBOTOMY SPECIALIST from Last 3 Months or Most Recently Relevant to Health Maintenance Results * (ABNORMAL) COMPREHENSIVE METABOLIC PANEL (09/14/2015 9:38 PM PHLEBOTOMY SPECIALIST) Glucose 119(H) 74 - 106 mg/dL 09/14/2015 [...] 6.4 - 8.2 gm/dL 09/14/2015 9:56 PM PHLEBOTOMY SPECIALIST [facility] Albumin 4.2 3.4 - 5.0 gm/dL 09/14/2015 9:56 PM PHLEBOTOMY SPECIALIST [facility] Bilirubin Total 0.5 0.2 - 1.0 mg/dL 09/14/2015 9:56 PM PHLEBOTOMY SPECIALIST [facility] eGFR by MDRD >60 >60 mL/min/1.7 3m2 09/14/2015 9:56 PM PHLEBOTOMY SPECIALIST [facility] eGFR by MDRD >60 >60 mL/min/1.7 3m2 09/14/2015 9:56 PM PHLEBOTOMY SPECIALIST [facility] Blood BLOOD SPECIMEN / Unknown 09/14/2015 9:38 PM PHLEBOTOMY SPECIALIST 09/14/2015 9:38 PM PHLEBOTOMY SPECIALIST Jhon Villasenor DO LAB - CHEMISTRY ORD ERABLES [facility] [address] [place] [address] from Last 3 Months or Most Recently Relevant to Health Maintenance Care Teams Board Attendant Relationship Specialty Start Date End Date None, Physician [address] [place] [address] PCP - General 04/28/23 Nicola Martinez MD [address] [place] [address] Family Medicine 04/22/21
--- OUTSIDE RECORDS SUMMARY | 2024-07-13 02:40 | XMS_ITS | Encounter Summary ---
Author Organization [facility] Address [address] [place] [address]. [place], [place] [address] [place] [address] Care Team Providers Care Sales Engineering Manager Name Role Phone Lu Grace Primary Care Provider [phone] Reason for Referral * Imaging (Emergency) - Closed Specialty Diagnoses / Procedures Referred By Pam lim Referred To Contact RADIOLOGY Procedures CTA HEAD+NECK Kirk Feng MD Phone: tel: fax: Referral ID Status Reason Start Date Expiration Date Visits Re quested Visits Authorized [id number] Closed 12/03/2020 01/03/2022 1 1 Reason for Visit * Reason Comments Headache Encounter Details Date Type Department Care Team (Late st Contact Info) Description 12/03/2020 1:59 PM CDT - 12/03/2020 4:[address] 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 * Headache, Adult ED ([place]er) * Migraines Discharge Instructions ([place]) documented in this encounter Medications at Time [...] Gatherings with Friends and Family: ??? Attends Scientology Services: ??? Active Member of Clubs or [...] RADIOLOGY CTA HEAD+NECK Final Result by User, [id number] (12/03 3085) Examination: CTA HEAD+NECK Exam time: 12/03/2020 3:44 [...] abrupt cut off to suggest acute central [place] large vessel occlusion. No significant focal atherosclerotic narrowing. No evidence of [place] aneurysm is demonstrated. There is no evidence of vascular malformation. IMPRESSION: 1) No evidence of carotid stenosis. 2. Both vertebral arteries are widely patent. 3. No evidence of focal filling defect or abrupt cut off to suggest acute central te[place] large vessel occlusion. 4. No evidence to suggest te[place] of [place] aneurysm. Referred By: KIRK FENG [...] HEADACHE DAMION Franco [address] [place] [address] As needed New Prescriptions SUMATRIPTAN 100 MG [...] abrupt cut off to suggest acute central te-[place] of [place] large vessel occlusion. 4. No evidence to suggest te-[place] of [place] aneurysm. Referred By: KIRK FENG [...] abrupt cut off to suggest acute central te[place] large vessel occlusion. No significant focal atherosclerotic narrowing. No evidence of [place] aneurysm is demonstrated. There is [...] abrupt cut off to suggest acute central [place] large vessel occlusion. No significant focal atherosclerotic narrowing. No evidence of [place] aneurysm is demonstrated. There is no evidence of vascular malformation. IMPRESSION: 1) No evidence of carotid stenosis. 2. Both vertebral arteries are widely patent. 3. No evidence of focal filling defect or abrupt cut off to suggestacute central te-[place] of [place] large vessel occlusion. 4. No evidence to suggest te-[place] of [place] aneurysm. Referred By: KIRK FENG Interpreted By: Edgar Bowles MD, 12/03/2020 3:56 PM Kirk Feng MD CT Final Result * (ABNORMAL) COMPREHENSIVE METABOLIC PANEL (12/03/2020 2:42 PM CDT) SODIUM S/P/B 141 136 - 145 MMOL/L 12/03/2020 3:10 PM CDT [facility] POTASSIUM S/P/B 3.5 3.5 - 5.1 MMOL/L 12/03/2020 3:10 PM CDT [facility] CHLORIDE S/P/B 104 98 - 107 MMOL/L 12/03/2020 3:10 PM CDT [facility] CO2 27.9 21.0 - 32.0 MMOL/L 12/03/2020 3:10 PM CDT [facility] GLUCOSE 112(H) 70 - 99 MG/DL 12/03/2020 3:10 PM T [facility] Comment: FASTING GLUCOSE 100 TO 125 MG/DL IS CONSISTENT WITH IMPAIRED FASTING GLUCOSE. FASTING GLUCOSE >125 MG/DL IS CONSISTENT WITH DIABETES. RANDOM GLUCOSE >200 MG/DL WITH HYPERGLYCEMIC SYMPTOMS IS CONSISTENT WITH DIABETES. PER ADA GUIDELINES BUN 16 6 - 24 MG/DL 12/03/2020 3:10 PM CDT [facility] CREATININE S/P/B 0.86 0.55 - 1.02 MG/DL 12/03/2020 3:10 PM CDT [facility] CALCIUM S/P/B 9.6 8.4 - 10.5 MG/DL 12/03/2020 3:10 PM CDT [facility] BILIRUBIN TOTAL S/P/B 0.3 0.2 - 1.0 MG/DL 12/03/2020 3:10 PM T [facility] Comment: THIS ASSAY IS NOT RECOMMENDED FOR PATIENTS UNDERGOING TREATMENT WITH ELTROMBOPAG DUE TO THE POTENTIAL FOR FALSELY ELEVATED RESULTS. ALKALINE PHOSPHATASE S/P/B 51 39 - 100 U/L 12/03/2020 3:10 PM CDT [facility] AST 29 15 - 37 U/L 12/03/2020 3:10 PM [facility] ALT 35 14 - 59 U/L 12/03/2020 3:10 PM T [facility] TOTAL PROTEIN S/P/B 7.4 6.4 - 8.2 G/DL 12/03/2020 3:10 PM T [facility] ALBUMIN S/P/B 4.3 3.4 - 5.0 G/DL 12/03/2020 3:10 PM T [facility] ANION GAP 9.1 5.0 - 15.0 MMOL/L 12/03/2020 3:10 PM T [facility] OSMOLALITY (CALC) 294 MOSM/KG 021 3:10 PM T [facility] Comment:REFERENCE RANGE NOT ESTABLISHED EGFR NON-AFR. AMER. 79(L) >89 ML/MIN/1. 73 M2 12/03/2020 3:10 PM CDT [facility] EGFR AFR. AMER. >90 >89 ML/MIN/1. 73 M2 12/03/2020 3:10 PM CDT [facility] GFR NOTES GFR REFERENCE S: 12/03/2020 3:10 PM CDT [facility] Comment: THE ESTIMATED GFR IS [...] us Kirk Feng MD LABORATORY Final Result [facility] [address] [place] [address], * PARTIAL THROMBOPLASTIN TIME,PTT (12/03/2020 2:42 PM CDT) PTT 34.1 25.1 - 36.5 SEC 12/03/2020 2:58 PM CDT [facility] Comment:THERAPEUTIC RANGE: 4 6.2-77.0 SEC 12/03/2020 2:42 PM CDT us Kirk Feng MD LABORATORY Final Result [facility] [address] [place] [address], * PROTIME/INR, VENOUS (12/03/2020 2:42 PM CDT) PROTIME 11.7 9.4 - 12.5 SEC 12/03/2020 2:58 PM CDT [facility] INR 1.1 0.9 - 1.1 12/03/2020 2:58 PM CDT [facility] 12/03/2020 2:42 PM CDT Kirk Feng MD LABORATORY Final Result [facility] [address] [place] [address], * (ABNORMAL) CBC W/DIFF AUTOMATED (12/03/2020 2:42 PM CDT) [facility] WBC 6.3 4.5 - 10.8 x10'3/uL 12/03/2020 2:49 PM CDT [facility] RBC 4.66 4.10 - 5.40 x10'6/uL 12/03/2020 2:49 PM CDT [facility] HGB 14.2 12.0 - 16.0 G/DL 12/03/2020 2:49 PM CDT [facility] HCT 42.7 36.0 - 47.0 % 12/03/2020 2:49 PM CDT [facility] MCV 91.6 78.0 - 100.0 FL 12/03/2020 2:49 PM CDT [facility] MCH 30.5 27.0 - 31.0 PG 12/03/2020 2:49 PM CDT [facility] MCHC 33.3 33.0 - 36.0 G/DL 12/03/2020 2:49 PM CDT [facility] RDW 12.3 11.5 - 14.5 % 12/03/2020 2:49 PM CDT [facility] PLT 168 150 - 350 x10'3/uL 12/03/2020 2:49 PM CDT [facility] MPV 10.6(H) 7.4 - 10.4 FL 12/03/2020 2:49 PM CDT [facility] DIFFERENTIAL COMMENT NORMAL REFERENCE RANGE NOT ESTABLISHED FOR THE PROPORTIONAL LEUKOCYTE DIFFERENTIAL. 12/03/2020 2:49 PM CDT [facility] SEG NEUTROPHILS 66.3 % 2:49 PM CDT [facility] LYMPHOCYTES 27.0 % 12/03/2020 2:49 PM CDT [facility] MONOCYTES 5.3 % 12/03/2020 2:49 PM CDT [facility] EOSINOPHILS 0.6 % 12/03/2020 2:49 PM CDT [facility] BASOPHILS 0.6 % 12/03/2020 2:49 PM CDT [facility] IMMATURE GRANS % 0.2 % 12/04/19 2:49 PM CDT [facility] NRBC 0.0 % 12/03/2020 2:49 PM CDT [facility] ABS. NEUTROPHILS 4.15 1.60 - 8.30 x10'3/uL 12/03/2020 2:49 PM CDT [facility] ABS. LYMPHOCYTES 1.69 0.80 - 4.70 x10'3/uL 12/03/2020 2:49 PM CDT [facility] ABS. MONOCYTES 0.33 0.00 - 1.50 x10'3/uL 12/03/2020 2:49 PM CDT [facility] ABS. EOSINOPHILS 0.04 0.00 - 0.40 x10'3/uL 12/03/2020 2:49 PM CDT [facility] ABS. BASOPHILS 0.04 0.00 - 0.20 x10'3/uL 12/03/2020 2:49 PM CDT [facility] ABS. IMMATURE GRANULOCYTES 0.01 0.00 - 0.03 x10'3/uL 12/03/2020 2:49 PM CDT [facility] ABS. NUCLEATED RBC'S 0.00 0.00 x10'3/uL 12/03/2020 2:49 PM CDT [facility] 12/03/2020 2:42 PM CDT Kirk Feng MD LABORATORY Final Result [facility] [address] [place] [address], documented in this encounter Visit Diagnoses Diagnosis [...] RTR) documented in this encounter Care Teams Sales Engineering Manager Relationship Specialty Start Date End Date Lu Grace PA [address] [place] [address] PCP - General PHYSICIAN JITTERBUG OPERATOR 04/19/20 09/08/22 documented as of this encounter
--- OUTSIDE RECORDS SUMMARY | 2024-07-13 02:40 | XMS_ITS | Encounter Summary ---
Author Organization [facility] Address [address] [place] [address]. 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
--- OUTSIDE RECORDS SUMMARY | 2024-07-13 02:40 | XMS_ITS | Encounter Summary ---
Author Organization [facility] Address [address] [place] [address]. [place], [place] [address] [place] [address] Care Team Providers Care Craft Recruiter Name Role Phone Brenton Vora MD Primary Care Provider [phone] Reason for Referral * Imaging (Routine) - Closed Specialty Diagnoses / Procedures Referred By Contac t Referred To Contact RADIOLOGY Diagnoses Fibroids Procedures US PELVIC NON OB COMP TA+TV Servando So PA [address] [place] [phone] Phone: tel: fax: Referral ID Status Reason Start Date Expiration Date Visits Re quested Visits Authorized [id number] Closed 08/27/2022 08/27/[address] * Imaging (Routine) - Closed Specialty Diagnoses / Procedures Referred By Contac t Referred To Contact RADIOLOGY Diagnoses Postmenopausal Procedures BONE DENSITY/DEXA Meg Curiel NP [address] [place] [phone] Phone: tel: fax: Referral ID Status Reason Start Date Expiration Date Visits Re quested Visits Authorized [id number] Closed 09/01/2022 09/01/[address] Reason for Visit * Imaging (Routine) - Closed Specialty Diagnoses / Procedures Referred By Contac t Referred To Contact RADIOLOGY Diagnoses Postmenopausal Procedures BONE DENSITY/DEXA Meg Curiel, ASHANTI [address] [place] [address] Phone: tel: fax: Referral ID Status Reason Start Date Expiration Date Visits Re quested Visits Authorized [id number] Closed 09/01/2022 09/01/2023 1 1 Encounter Details Date Type Department Care Team (Latest Contact Info) Description 09/09/2022 9:45 AM RECORD CUTTER - 09/09/2022 11:59 PM RECORD CUTTER Hospital Encounter 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 No / Unsure 09/09/2022 9:39 AM RECORD CUTTER documented as of this encounter Medications at [...] BONE DENSITY/DEXA Routine 09/09/2022 3:2 7 PM RECORD CUTTER Postmenopausal documented in this encounter Results * [...] Result * BONE DENSITY/DEXA (09/09/2022 3:27 PM RECORD CUTTER) Anatomical Region Laterality Modality Bone Bone Density 09/09/2022 3:42 PM RECORD CUTTER Impressions 09/09/2022 3:44 PM RECORD CUTTER Impression: BMD measured at AP lumbar spine, both total hips and both femoral necks at WHO category level of normal. Ordered By: MEG CURIEL Interpreted By: Domingo Bueon MD, 09/09/2022 3:42 PM Narrative 09/09/2022 3:44 PM RECORD CUTTER Examination: DEXA Bone densitometry EXAM DATE: ??09/09/2022 [...] MD, 09/09/2022 3:42 PM us Meg Curiel CO FOUNDER AND CTO DEXA Fin al Result documented in this encounter Visit Diagnoses Diagnosis Postmenopausal Asymptomatic postmenopausal status (age-related) (natural) Fibroids Leiomyoma of uterus, unspecified documented in this encounter Care Teams Craft Recruiter Relationship Specialty Start Date End Date Brenton Vora MD [address] [place] [phone] PCP - General FAMILY PRACTICE 09/09/22 documented as of this encounter
--- OUTSIDE RECORDS SUMMARY | 2024-07-13 02:40 | XMS_ITS | Encounter Summary ---
Author Organization [facility] Address [address] [place] [address]. [place], [place] [address] [place] [address] Care Team Providers Care Primary Counselor Name Role Phone Brenton Voar MD Primary Care Provider [phone] Reason for Visit * Reason Comments Injection LEFT knee Encounter Details Date Type Department Care Team (Late st Contact Info) Description 11/02/2023 10:00 AM CDT Office Visit [place] [id number] Charlotte Castro, 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 She works a [employer]. No additional nursing task documentation needed. Vitals: [...] RELEASE KNEE SURGERY Allergies Succinylcholine [x] Total Ydzf-rt-Fmeq Assessment Time: 0-15 minutes Additional Contributory Factors NONE * Charlotte Castro, RN MATERNAL CHILD-BC - 11/02/2023 10:00 AM CDT Chief Complaint: [...] relief for 5 months. She works a [employer]. ROS: See HPI for pertinent positives Problem [...] if symptoms worsen or fail to improve. RNONI MCKEON documented in this encounter Plan of [...] Knee documented in this encounter Care Teams Primary Counselor Relationship Specialty Start Date End Date Brenton Vora MD [address] [place] [phone] PCP - General FAMILY PRACTICE 09/09/22 documented as of this encounter
--- OUTSIDE RECORDS SUMMARY | 2024-07-13 02:40 | XMS_ITS | Encounter Summary ---
Author Organization [facility] Address [address] [place] [address]. 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
--- OUTSIDE RECORDS SUMMARY | 2024-07-13 02:40 | XMS_ITS | Patient Health Summary ---
Author Organization [facility] Address [address] [place] [address] Care Team Providers Care Fan Blade Aligner Name Role Phone Nicola Martinez MD Unavailable [phone] None, Physician Primary Care Provider Unavailabl e Note from [facility],non-owned Affiliates and Associated Physician Practices is amultiple site organization consisting of ambulatory clinics and hospital sitesin [place], [place], [place] and [place]. This disclosure is being madepursuant to the Care Everywhere program and may not contain all information available regarding this patient. Last updated 18.[facility] Allergies * Lidocaine(Unknown) * Succinylcholine(Anaphylaxis) -High Criticality [...] T Respiratory Rate 13 09/14/2015 10:45 PM BURGLAR ALARM SUPERINTENDENT Oxygen Saturation 98% 04/28/2023 9:09 AM CDT Inhaled Oxygen Concentration - - Weight 71.7 kg (158 lb) 04/28/2023 9:09 AM CDT Height 157.5 cm (5' 2 ) 04/28/2023 9:09 AM CDT Body Mass Index 28.9 04/28/2023 9:09 AM CDT Procedures * FL DESTRUCT BENIGN LESION, 1-14(Performed 09/13/2023) Performed for [...] DIFFERENTIAL(Performed 09/14/2015) * OXYGEN(Performed 09/14/2015) Results * FL DESTRUCT BENIGN LESION, 1-14 (09/13/2023 12:24 PM BURGLAR ALARM SUPERINTENDENT) Narrative Ruba Sullivan MD - 09/13/2023 12:24 PM BURGLAR ALARM SUPERINTENDENT Adonay Hull MD ? 09/13/2023 12:25 PM [...] CT HEAD NON CONTRAST (09/14/2015 10:00 PM BURGLAR ALARM SUPERINTENDENT) Anatomical Region Laterality Modality Head Computed Tomogra phy 09/15/2015 6:37 AM BURGLAR ALARM SUPERINTENDENT Impressions 09/15/2015 6:40 AM BURGLAR ALARM SUPERINTENDENT No acute intracranial findings on non- contrast CT of the head. Narrative 09/15/2015 6:40 [address] BURGLAR ALARM SUPERINTENDENT CT brain without contrast. HISTORY: Headache Technique: [...] ORDERABLES * EKG 12-LEAD (09/14/2015 9:43 PM [facility]) Ventricular Rate 80 BPM [facility] Atrial Rate 80 BPM [facility] P-R Interval 116 ms [facility] QRS Duration ms 74 ms [facility] Q-T Interval ms 376 ms [facility] QTC Calculation (Bezet) 433 ms [facility] Calculated P Jber 51 degrees [facility] Calculated R Jber 49 degrees [facility] Calculated T Jber 46 degrees [facility] Interpretation EKG Normal sinus rhythm Nonspecific ST and T wave abnormality Abnormal ECG No previous ECGs available Confirmed by RICHARDSON HANNA, [facility] ([id number]) on 09/15/2015 10:23:35 AM [facility] 09/14/2015 9:43 PM [facility] 09/15/2015 10:23 AM [facility] Jhon Villasenor DO ECG ORDERABLES [facility] * PT PTT PANEL (09/14/2015 9:38 PM [facility]) PT 10.2 9.5 - 11.6 sec 09/14/2015 10:04 PM [facility] INR 1.0 0.9 - 1.1 09/14/2015 10:04 PM [facility] PTT 24.3 21.0 - 32.0 sec 09/14/2015 10:04 PM [facility] Blood BLOOD SPECIMEN / Unknown 09/14/2015 9:38 PM BURGLAR ALARM SUPERINTENDENT 09/14/2015 9:39 PM [facility] - 09/14/2015 10:04 PM BURGLAR ALARM SUPERINTENDENT Conventional Warfarin Anticoagulant Therapy: INR Reference Range: ??2.0-3.0 Intensive Warfarin Anticoagulant Therapy: INR Reference Range: ? 2.5-3.5 Heparin Therapeutic Range for PTT: 44.4 - 78.3 seconds. Jhon Villasenor DO LAB - COAGULATION O RDERABLES [facility] [address] [place] [address] * (ABNORMAL) CBC W AUTO DIFFERENTIAL (09/14/2015 9:38 PM [facility]) WBC 9.2 4.4 - 10.7 x10^9/L 09/14/2015 9:41 PM [facility] WBC Corrected x10^9/L 09/14/2015 9:41 PM [facility] RBC 4.69 3.80 - 5.20 x10^12/L 09/14/2015 9:41 PM [facility] Hemoglobin 13.5 12.0 - 15.6 gm/dL 09/14/2015 9:41 PM [facility] Hematocrit 39.9 35.9 - 45.5 % 09/14/2015 9:41 PM [facility] MCV 85.1 80.7 - 98.3 fl 09/14/2015 9:41 PM [facility] MCH 28.8 26.7 - 34.0 pg 09/14/2015 9:41 PM [facility] MCHC 33.8 30.8 - 35.9 gm/dL 09/14/2015 9:41 PM [facility] Platelet Count 274 153 - 416 x10^9/L 09/14/2015 9:41 PM [facility] RDW-CV 12.5 12.1 - 14.9 % 09/14/2015 9:41 PM [facility] MPV 10.4 9.4 - 12.9 fl 09/14/2015 9:41 PM [facility] Neutrophils % 47.1 44.0 - 73.0 % 09/14/2015 9:41 PM [facility] Lymphocytes % 44.1(H) 20.0 - 43.0 % 09/14/2015 9:41 PM [facility] Monocytes % 6.0 5.0 - 13.0 % 09/14/2015 9:41 PM [facility] Eosinophils % 1.9 0.0 - 6.0 % 09/14/2015 9:41 PM [facility] Basophils % 0.7 0.0 - 2.0 % 09/14/2015 9:41 PM [facility] Immature Granulocytes 0.2 0 - 1 % 09/14/2015 9:41 PM [facility] Neutrophil Absolute 4.33 2.01 - 7.14 x10^9/L 09/14/2015 9:41 PM [facility] Lymphocytes Absolute 4.04(H) 1.07 - 3.94 x10^9/L 09/14/2015 9:41 PM [facility] Monocytes Absolute 0.55 0.26 - 1.07 x10^9/L 09/14/2015 9:41 PM [facility] Eosinophils Absolute 0.17 0 - 0.47 x10^9/L 09/14/2015 9:41 PM [facility] Basophils Absolute 0.06 0 - 0.08 x10^9/L 09/14/2015 9:41 PM [facility] Immature Granulocytes Absolute 0.02 0.00 - 0.06 x10^9/L 09/14/2015 9:41 PM [facility] nRBC Auto 0 /100 WBC 09/14/2015 9:41 PM [facility] Blood BLOOD SPECIMEN / Unknown 09/14/2015 9:38 PM BURGLAR ALARM SUPERINTENDENT 09/14/2015 9:38 PM [facility] Jhon Villasenor DO LAB - HEMATOLOGY OR DERABLES [facility] [address] [place] [address] * (ABNORMAL) COMPREHENSIVE METABOLIC PANEL (09/14/2015 9:38 PM [facility]) [facility] Signature Glucose 119(H) 74 - 106 mg/dL 09/14/2015 9:56 PM [facility] Sodium 138 136 - 145 mmol/L 09/14/2015 9:56 PM [facility] Potassium 3.7 3.5 - 5.1 mmol/L 09/14/2015 9:56 PM [facility] Chloride 103 98 - 107 mmol/L 09/14/2015 9:56 PM [facility] CO2 24 22 - 31 mmol/L 09/14/2015 9:56 PM [facility] Calcium 9.2 8.5 - 10.1 mg/dL 09/14/2015 9:56 PM [facility] Anion Gap 11 5 - 20 mmol/L 09/14/2015 9:56 PM [facility] BUN 19 7 - 21 mg/dL 09/14/2015 9:56 PM [facility] Creatinine 0.90 0.50 - 1.30 mg/dL 09/14/2015 9:56 PM [facility] Alkaline Phosphatase 57 38 - 126 U/L 09/14/2015 9:56 PM [facility] ALT 22 12 - 78 U/L 09/14/2015 9:56 PM [facility] AST 15 5 - 40 U/L 09/14/2015 9:56 PM [facility] Protein Total 8.0 6.4 - 8.2 gm/dL 09/14/2015 9:56 PM [facility] Albumin 4.2 3.4 - 5.0 gm/dL 09/14/2015 9:56 PM [facility] Bilirubin Total 0.5 0.2 - 1.0 mg/dL 09/14/2015 9:56 PM [facility] eGFR by MDRD >60 >60 mL/min/1.7 3m2 09/14/2015 9:56 PM [facility] eGFR by MDRD >60 >60 mL/min/1.7 3m2 09/14/2015 9:56 PM [facility] Blood BLOOD SPECIMEN / Unknown 09/14/2015 9:38 PM [facility] 09/14/2015 9:38 PM [facility] Jhon Villasenor DO LAB - CHEMISTRY ORD ERABLES [facility] [address] [place] [address] * MAGNESIUM BLOOD (09/14/2015 9:38 PM [facility]) Magnesium 2.2 1.6 - 2.6 mg/dL 09/14/2015 9:56 PM BURGLAR ALARM SUPERINTENDENT [facility] Blood BLOOD SPECIMEN / Unknown 09/14/2015 9:38 PM BURGLAR ALARM SUPERINTENDENT 09/14/2015 9:38 PM BURGLAR ALARM SUPERINTENDENT Jhon Villasenor DO LAB - CHEMISTRY ORD ERABLES [facility] [address] [place] [address] Care Teams Fan Blade Aligner Relationship Specialty Start Date End Date None, Physician [address] [place] [address] PCP - General 04/28/23 Nicola Martinez MD [address] [place] [address] Family Medicine 04/22/21
--- OUTSIDE RECORDS SUMMARY | 2024-07-13 02:40 | XMS_ITS | Encounter Summary ---
Author Organization [facility] Address [address] [place] [address]. [place], [place] [address] [place] [address] Care Team Providers Care Motivational Speaker Name Role Phone Brenton Vora MD Primary Care Provider [phone] Reason for Visit * Reason Onset Date Comments Refill Request 05/24/2023 Encounter Details Date Type Department Care Team (Late st Contact Info) Description 05/24/[address] 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
--- OUTSIDE RECORDS SUMMARY | 2024-07-13 02:40 | XMS_ITS | Encounter Summary ---
Author Organization [facility] Address [address] [place] [address] Care Team Providers Care Financial Engineer Name Role Phone Nicola Martinez MD Unavailable [phone] None, Physician Primary Care Provider Unavailabl e [...] on filedocumented in this encounter Care Teams Financial Engineer Relationship Specialty Start Date End Date None, Physician [address] [place] [address] PCP - General 04/28/23 Nicola Martinez MD [address] [facility] [place] [address] Family Medicine 04/22/21 documented as of this encounter
--- OUTSIDE RECORDS SUMMARY | 2024-07-13 02:40 | XMS_ITS | Encounter Summary ---
Author Organization [facility] Address [address] [place] [address]. [place], [place] [phone] [place] [address] Care Team Providers Care Powerbuilder Name Role Phone Brenton Vora MD Primary Care Provider [phone] Encounter Details Date Type Department Care Team (Late st Contact Info) Description 05/17/2023 4:14 PM CDT - 05/17/2023 11:59 PM CDT Hospital Encounter [facility] [address] [place] [address] Ann Marie Castro, [facility]- [address] [place] [address] Discharge Disposition: Home or Self Care (Routine Discharge) Social History Tobacco Use Types Packs/Day Years Used Date Smoking Tobacco: Never Smokeless Tobacco: Never Alcohol Use Standard Drinks/Week Comments Not Currently 0 (1 standard drink = 0.6 oz pur e alcohol) Comments No Sex and Gender Information Value Date Recorded Sex Assigned at Not on file 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
--- OUTSIDE RECORDS SUMMARY | 2024-07-13 02:40 | XMS_ITS | Encounter Summary ---
Author Organization [facility] Address [address] [place] [address]. 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
--- OUTSIDE RECORDS SUMMARY | 2024-07-13 02:40 | XMS_ITS | Encounter Summary ---
Author Organization [facility] Address [address] [place] [address]. [place], [place] [phone] [place] [address] Care Team Providers Care Helicopter Mechanic Name Role Phone Lu Grace Primary Care Provider [phone] Reason for Visit * Reason Comments Rectal Problem Encounter Details Date Type Department Care Team (Late st Contact Info) Description 04/19/2020 9:43 AM CDT - 04/19/2020 10:40 AM CDT Emergency [facility] [address] [facility] [address] Donny Steinberg Jr., MD [address] [place] [id number] Rectal Problem Discharge Disposition: Home or Self Care (Routine Discharge) Social History Tobacco Use Types Packs/Day Years Used Date Smoking Tobacco: Never Smokeless Tobacco: Never Alcohol Use Standard Drinks/Week Comments Not Currently 0 (1 standard drink = 0.6 oz pur e alcohol) Comments No Sex and Gender Information Value Date Recorded Sex Assigned at Not on file 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 * Anal Fissure Discharge Instructions ([place] Ze[place]ander) documented in this encounter Medications at Time [...] file Gets together: Not on file Attends judaism service: Not on file Active member of [...] ANAL FISSURE DAMION Franco [address] [facility] [id number] In 1 week New Prescriptions TRAMADOL 50 [...] sleep, or sit, has been seen at [facility]. And has been using intra-anal nitroglycerin 0.4% cream, nifedipine 0.2% oint qid, metamucil and nothing is helping. 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
--- OUTSIDE RECORDS SUMMARY | 2024-07-13 02:40 | XMS_ITS | Encounter Summary ---
Author Organization [facility] Address [address] [place] [address]. 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
--- OUTSIDE RECORDS SUMMARY | 2024-07-13 02:40 | XMS_ITS | Encounter Summary ---
Author Organization [facility] Address [address] [place] [address]. [place], [place] [address] [place] [address] Care Team Providers Care Dry Cleaning Machine Operator Helper Name Role Phone Lu Grace Primary Care Provider [phone] Encounter Details Date Type Department Care Team (Latest Contact Info) Description 07/22/2021 10:50 AM REED PRESS FEEDER - 07/22/2021 11:59 PM REED PRESS FEEDER Hospital Encounter [place] [id number] [facility] [place] [address] Cristel Rivera, [facility] [address] [place] [address] Discharge Disposition: Home or Self Care (Routine Discharge) Social History Tobacco Use Types Packs/Day Years Used Date Smoking Tobacco: Never Smokeless Tobacco: Never Alcohol Use Standard Drinks/Week Comments Not Currently 0 (1 standard drink = 0.6 oz pur e alcohol) Comments No Sex and Gender Information Value Date Recorded Sex Assigned at Not on file Legal Sex Female 10:30 PM REED PRESS FEEDER Gender Identity Not on file Sexual Orientation Not on file COVID-19 Exposure Response Date Recorded In the last month, have you been in contact with someone who was confirmed or suspected to have Coronavirus / COVID-19? No / Unsure 07/22/2021 10:53 AM REED PRESS FEEDER documented as of this encounter Medications at [...] ANTIGEN DIRECT OPTICAL Routine 07/22/2021 11:10 AM REED PRESS FEEDER Encounter for screening for other viral diseases CORONAVIRUS (COVID 19) Routine 07/22/2021 11:10 AM REED PRESS FEEDER Encounter for screening for other viral diseases documented in this encounter Results * CORONAVIRUS (COVID 19) PCR (07/22/2021 11:10 AM REED PRESS FEEDER) SPEC DESCRIPTION NASAL 07/22/20 1:21 PM REED PRESS FEEDER [facility] CORONAVIRUS SARS COV 2 PCR (RESP) NEGATIVE NEGATIVE 07/23/2021 9:48 PM [facility] Comment: THE SARS-CoV-2 TEST HAS BEEN AUTHORIZED BY THE FDA UNDER AN EUA FOR USE BY AUTHORIZED LABORATORIES. PERFORMED BY NUCLEIC ACID AMPLIFICATION PCR FIRST TEST NO 07/22/2021 1:21 PM [facility] EMPLOYED IN HEALTHCARE NO 07/22/2021 1:21 PM [facility] SYMPTOMATIC DEFINED BY CDC NO 07/22/2021 1:21 PM [facility] HOSPITALIZATION STATUS NO 07/22/2021 1:21 PM REED PRESS FEEDER [facility] PATIENT IN ICU NO 07/22/2021 1:21 PM [facility] RESIDENT OF [facility] NO 07/22/2021 1:21 PM [facility] NOT 07/22/2021 1:21 PM [facility] NASAL STRUCTURE / Unknown 07/22/2021 11:10 AM REED PRESS FEEDER [facility] MICROBIOLOG[facility] - GENERAL OR DERABLES Final Result [facility] [address] [place] [address], [place] [phone] [facility] [address] [place] [address], [place] [phone] * CORONAVIRUS (COVID-19) ANTIGEN DIRECT OPTICAL (07/22/2021 11:10 AM REED PRESS FEEDER) CORONAVIRUS ANTIGEN [place] NEGATIVE NEGATIVE 07/22/2021 11:41 AM REED PRESS FEEDER [facility] Comment: NEGATIVE RESULTS DO NOT [...] LABORATORIES. SPECIMEN TYPE NASAL 07/22/2021 10:57 AM REED PRESS FEEDER [facility] FIRST TEST NO 07/22/2021 10:57 AM REED PRESS FEEDER [facility] EMPLOYED IN HEALTHCARE NO 07/22/2021 10:57 AM REED PRESS FEEDER [facility] SYMPTOMATIC DEFINED BY CDC NO 07/22/2021 10:57 AM REED PRESS FEEDER [facility] HOSPITALIZATION STATUS NO 07/22/2021 10:57 AM REED PRESS FEEDER [facility] PATIENT IN ICU NO 07/22/2021 10:57 AM REED PRESS FEEDER [facility] RESIDENT OF [facility] NO 07/22/2021 10:57 AM REED PRESS FEEDER [facility] NOT 07/22/2021 10:57 AM REED PRESS FEEDER [facility] Specimen from nose (specimen) NASAL STRUCTURE / Unknown 07/22/2021 11:10 AM REED PRESS FEEDER [facility] MICRO[facility]OLOG[facility] - GENERAL OR DERABLES Final Result [facility] [address] [place] [address], documented in this encounter Visit Diagnoses Diagnosis Encounter for screening for other viral diseases documented in this encounter Additional Health Concerns Infection Onset Date Last Indicated Resolved Time COVID-19 Rule Out 07/22/2021 07/22/2021 07/22/2021 11:41 AM REED PRESS FEEDER COVID-19 Rule Out 07/22/2021 07/22/2021 07/23/2021 9:48 PM REED PRESS FEEDER documented as of this encounter Care Teams Dry Cleaning Machine Operator Helper Relationship Specialty Start Date End Date Lu Grace PA [address] [place] [address] PCP - General PHYSICIAN LOANS OFFICER 04/19/20 09/08/22 documented as of this encounter
--- OUTSIDE RECORDS SUMMARY | 2024-07-13 02:40 | XMS_ITS | Encounter Summary ---
Author Organization [facility] Address [address] [place] [address]. 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
--- OUTSIDE RECORDS SUMMARY | 2024-07-13 02:40 | XMS_ITS | Encounter Summary ---
Author Organization [facility] Address [address] [place] [address]. [place], [place] [address] [place] [address] Care Team Providers Care Airport Sales Agent Name Role Phone Brenton Vora MD Primary Care Provider [phone] Reason for Visit * Reason Onset Date Comments Medication Request 04/15/2023 Encounter Details Date Type Department Care Team (Late st Contact Info) Description 04/15/2023 Telephone [place] [address] Charlotte Castro, [facility] [address] [place] [address] Medication Request Social History Tobacco Use Types Packs/Day Years Used Date Smoking Tobacco: Never Smokeless Tobacco: Never Alcohol Use Standard Drinks/Week Comments Not Currently 0 (1 standard drink = 0.6 oz pur e alcohol) Comments No Sex and Gender Information Value Date Recorded Sex Assigned at Not on file 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
--- OUTSIDE RECORDS SUMMARY | 2024-07-13 02:40 | XMS_ITS | Encounter Summary ---
Author Organization [facility] Address [address] [place] [address]. [place], [place] [address] [place] [address] Care Team Providers Care Supervisor Air Conditioning Installer Name Role Phone Lu Grace Primary Care Provider [phone] Encounter Details Date Type Department Care Team (Late st Contact Info) Description 04/13/2022 Orders Only [facility] [place] [address] Wilber Hamilton MD [address] [place] [address] Social History Tobacco Use Types Packs/Day Years Used Date Smoking Tobacco: Never Smokeless Tobacco: Never Alcohol Use Standard Drinks/Week Comments Not Currently 0 (1 standard drink = 0.6 oz pur e alcohol) Comments No Sex and Gender Information Value Date Recorded Sex Assigned at Not on file Legal Sex Female 10:30 PM LAWN MAINTENANCE WORKER Gender Identity Not on file Sexual [...] knee documented in this encounter Care Teams Supervisor Air Conditioning Installer Relationship Specialty Start Date End Date Lu Grace PA [address] [place] [address] PCP - General PHYSICIAN POCKET BUILDER 04/19/20 09/08/22 documented as of this encounter
--- OUTSIDE RECORDS SUMMARY | 2024-07-13 02:40 | XMS_ITS | Encounter Summary ---
Author Organization [facility] Address [address] [place] [address]. [place], [place] [address] [place] [address] Care Team Providers Care Press Box Custodian Name Role Phone Lu Grace Primary Care Provider [phone] Reason for Visit * Reason Comments Knee Pain LEFT Encounter Details Date Type Department Care Team (Late st Contact Info) Description 04/22/2022 4:00 PM CDT Office Visit [facility] [place] [address] Wilber Hamilton MD [address] [place] [address] Knee Pain (LEFT) Social History Tobacco Use Types Packs/Day Years Used Date Smoking Tobacco: Never Smokeless Tobacco: Never Alcohol Use Standard Drinks/Week Comments Not Currently 0 (1 standard drink = 0.6 oz pur e alcohol) Comments No Sex and Gender Information Value Date Recorded Sex Assigned at Not on file 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 ROS: See HPI [...] Other documented in this encounter Care Teams Press Box Custodian Relationship Specialty Start Date End Date Lu Grace PA [address] [place] [address] PCP - General PHYSICIAN INTELLIGENCE CONSULTANT 04/19/20 09/08/22 documented as of this encounter
--- OUTSIDE RECORDS SUMMARY | 2024-07-13 02:40 | XMS_ITS | Encounter Summary ---
Author Organization [facility] Address [address] [place] [address]. [place], [place] [address] [place] [address] Care Team Providers Care Best Worker Name Role Phone Brenton Vora MD Primary Care Provider [phone] Reason for Visit * Reason Comments Knee Pain LEFT Encounter Details Date Type Department Care Team (Late st Contact Info) Description 10/14/2022 1:45 PM CDT Office [place] [address] Charlotte Castro, [facility] [address] [facility] [place] [address] Knee Pain (LEFT) Social History Tobacco Use Types Packs/Day Years Used Date Smoking Tobacco: Never Smokeless Tobacco: Never Tobacco Cessation:Counseling Given: Not Answered Alcohol Use Standard Drinks/Week Comments Not Currently 0 (1 standard drink = 0.6 oz pur e alcohol) Comments No Sex and Gender Information Value Date Recorded Sex Assigned at Not on file Legal Sex Female 10:30 PM APARTMENT RENTAL AGENT Gender Identity Not on file Sexual Orientation [...] this encounter Progress Notes * Charlotte Castro, HOSTING ENGINEER-BC - 10/14/2022 1:45 PM CDT Chief Complaint: [...] and tingling noted. 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 ROS: See HPI for [...] canalways transition to viscosupplementation since she is [id number] end- stage patellofemoral osteoarthritis. Follow up: Return [...] Knee documented in this encounter Care Teams Best Worker Relationship Specialty Start Date End Date Brenton Vora MD [address] [place] [phone] PCP - General FAMILY PRACTICE 09/09/22 documented as of this encounter
--- OUTSIDE RECORDS SUMMARY | 2024-07-13 02:40 | XMS_ITS | Encounter Summary ---
Author Organization [facility] Address [address] [place] [address] Care Team Providers Care Supervisor Post Wave Name Role Phone Nicola Martinez MD Unavailable [phone] None, Physician Primary Care Provider Unavailnamrata e [...] on filedocumented in this encounter Care Teams Supervisor Post Wave Relationship Specialty Start Date End Date None, Physician [address] [place] [address] PCP - General 04/28/23 Nicola Martinez MD [address] [place] [address] Family Medicine 04/22/21 documented as of this encounter
--- OUTSIDE RECORDS SUMMARY | 2024-07-13 02:40 | XMS_ITS | Encounter Summary ---
Author Organization [facility] Address [address] [place] [address]. [place], [place] [address] [place] [address] Care Team Providers Care Chef Head Name Role Phone Brenton Vora MD Primary Care Provider [phone] Encounter Details Date Type Department Care Team [...] on file Legal Sex Female 10:30 PM INDUSTRIAL EDUCATION INSTRUCTOR Gender Identity Not on file Sexual Orientation Not on file COVID-19 Exposure Response Date Recorded In the last 10 days, have yo u been in contact with someone who was confirmed or suspected to have Coronavirus/COVID-19? No / Unsure 09/09/2022 9:39 AM INDUSTRIAL EDUCATION INSTRUCTOR documented as of this encounter Plan of Treatment Not on file documented as of this encounter Visit Diagnoses Not on filedocumented in this encounter Care Teams Chef Head Relationship Specialty Start Date End Date Brenton Vora MD [address] [place] [phone] PCP - General FAMILY PRACTICE 09/09/22 documented as of this encounter
--- OUTSIDE RECORDS SUMMARY | 2024-07-13 02:40 | XMS_ITS | Encounter Summary ---
Author Organization [facility] Address [address] [place] [address]. [place] [address] [place] [address] Care Team Providers Care Journalism Professor Name Role Phone Unavailable Primary Care Provider Unavailabl e Encounter Details Date Type Department Care Team (Late st Contact Info) Description 02/21/1998 Abstract [facility] CONVERSION [address] [place] [address] , Generic Conversion, Social History Tobacco Use Types Packs/Day Years Used Date Smoking Tobacco: Never Assessed Comments Unknown Sex and Gender Information Value Date Recorded Sex Assigned at Not on file Legal Sex Female 10:30 PM CHARGE ACCOUNT AUTHORIZER Gender Identity Not on file Sexual Orientation Not on file documented as of this encounter Plan of Treatment Not on file documented as of this encounter Visit Diagnoses Not on filedocumented in this encounter
--- OUTSIDE RECORDS SUMMARY | 2024-07-13 02:40 | XMS_ITS | Encounter Summary ---
Author Organization [facility] Address [address] [place] [address]. [place], [place] [address] [place] [address] Care Team Providers Care Property Consultant Name Role Phone Brenton Vora MD Primary Care Provider [phone] Reason for Visit * Imaging (Routine) - Closed Specialty Diagnoses / Procedures Referred By Pam lim Referred To Contact RADIOLOGY Diagnoses Fibroids Procedures US PELVIC NON OB COMP TA+TV Servando So PA [address] [place] [phone] Phone: tel: fax: Referral ID Status Reason Start Date Expiration Date Visits Re quested Visits Authorized [id number] Closed 08/27/2022 08/27/2023 1 1 Encounter Details Date Type Department Care Team (Latest Contact Info) Description 12/29/2022 5:51 AM CDT - 12/29/2022 11:59 PM CDT Hospital Encounter [facility] [address] [place] [address] Servando So PA [address] [place] [phone] Discharge Disposition: Home or Self Care (Routine Discharge) Social History Tobacco Use Types Packs/Day Years Used Date Smoking Tobacco: Never Smokeless Tobacco: Never Alcohol Use Standard Drinks/Week Comments Not Currently 0 (1 standard drink = 0.6 oz pur e alcohol) Comments No Sex and Gender Information Value Date Recorded Sex Assigned at Not on file Legal Sex Female 10:30 PM CHEF GERMAN Gender Identity Not on file Sexual Orientation [...] MD, 12/30/2022 1:43 PM us [facility] [place] [facility] Final Result documented in this encounter Visit Diagnoses Not on filedocumented in this encounter Care Teams Property Consultant Relationship Specialty Start Date End Date Brenton Vora MD [address] [place] [phone] PCP - General FAMILY PRACTICE 09/09/22 documented as of this encounter
--- OUTSIDE RECORDS SUMMARY | 2024-07-13 02:40 | XMS_ITS | Encounter Summary ---
Author Organization [facility] Address [address] [place] [address]. [place], [place] [address] [place] [address] Care Team Providers Care Lease Buyer Name Role Phone Brenton Vora MD Primary Care Provider [phone] Encounter Details Date Type Department Care Team [...] on file Legal Sex Female 10:30 PM TANK TRUCK ENGINE MECHANIC Gender Identity Not on file Sexual Orientation Not on file documented as of this encounter Plan of Treatment Not on file documented as of this encounter Visit Diagnoses Not on filedocumented in this encounter Care Teams Lease Buyer Relationship Specialty Start Date End Date Brenton Vora MD [address] [place] [phone] PCP - General FAMILY PRACTICE 09/09/22 documented as of this encounter
--- OUTSIDE RECORDS SUMMARY | 2024-07-13 02:40 | XMS_ITS | Encounter Summary ---
Author Organization [facility] Address [address] [place] [address] Care Team Providers Care Sales Intern Name Role Phone Nicola Maritnez MD Primary Care Provider [phone] Reason for Visit * Reason Comments Pain [...] st Contact Info) Description 09/14/2015 9:19 PM MIXER OPERATOR RAW SALT - 09/14/2015 11:09 PM MIXER OPERATOR RAW SALT Emergency ER at [address] [address] Occipital headache Discharge Disposition: Home or Self [...] Comments Blood Pressure 132/74 09/14/2015 10:45 PM MIXER OPERATOR RAW SALT Pulse 66 09/14/2015 10:45 PM MIXER OPERATOR RAW SALT Temperature 36.8 ??C (98.3 ??F) 09/14/2015 9:24 PM CS T Respiratory Rate 13 09/14/2015 10:45 PM MIXER OPERATOR RAW SALT Oxygen Saturation 99% 09/14/2015 10:45 PM MIXER OPERATOR RAW SALT Inhaled Oxygen Concentration - - Weight - - Height 162.6 cm (5' 4.02 ) 09/14/2015 9:24 PM CS T Body Mass Index - - documented in this encounter Discharge Instructions * Discharge Instructions* Rachel Gastelum PA - 09/14/2015 10:48 PM MIXER OPERATOR RAW SALT Images from the original note were not [...] or any specialist referral. ?? Only take [id number] or prescription medicines for pain or discomfort [...] Document Reviewed: 07/26/2012 ExitCare?? Patient Information ??2013 [employer]. R OPERATOR RAW SALT documented in this encounter ED Notes * Yarelis To RN - 09/14/2015 11:09 PM CST Pt discharged to home with family as ride. Pt and family verbalized understanding of discharge instructions. Pt taken in wheelchair out of ED with no issues. R OPERATOR RAW SALT * Yarelis To RN - 09/14/2015 10:13 PM CST Pt states headache is relieved to now just a throbbing pain, 02 sat dropped to 80's relieved with taking a deep breath, pt placed on 2L nasal cannula to help while trying to sleep. Jennifer at bedside. R OPERATOR RAW SALT * Yarelis To RN - 09/14/2015 9:46 [...] But not really painful for a month. Mechanical Equipment Sales Engineer strong and push pull strong on both sides. No neuro deficits noted at this time. Pt has no vision changes but states the lights hurt her eyes. Mother at bedside, labs sent, EKG complete and pt in CT. DAMION Gastelum already in to see pt. R OPERATOR RAW SALT * Yarelis To RN - 09/14/2015 9:45 PM CST Pt taken for CT at this time. 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 Pt states that she had STOVER on Tuesday and this morning that had since resolved. She was at [facility] and acute onset throbbing intense 10/10 pain [...] 44.0-73.0 % Lymph 44.1 (H) 20.0-43.0 % [place] 6.0 5.0-13.0 % Eos 1.9 0.0-6.0 % Baso 0.7 0.0-2.0 % Immature Grans 0.2 0-1 % Neutro Abs 4.33 2.01-7.14 x10^9/L Lymph Abs 4.04 (H) 1.07-3.94 x10^9/L [place] Abs 0.55 0.26-1.07 x10^9/L Eosin Abs 0.17 [...] sec CT HEAD NON CONTRAST Preliminary Result [place]: No acute intracranial hemorrhage, mass, or midline [...] ??? PT PTT PANEL ??? CONSULT TO TOW FEEDER ??? OXYGEN ??? EKG 12-LEAD ??? 0.9% NaCl injection 1-10 mL ??? 0.9% NaCl infusion ??? morphine injection 4 mg ??? diphenhydrAMINE (BENADRYL) injection 25 mg ??? prochlorperazine (COMPAZINE) injection 10 mg ??? lidocaine (XYLOCAINE MPF) 1 % injection Rx: New Prescriptions No medications on file Follow Up: Nicola Martinez MD [address] [place] [address] [place] [address] Schedule an appointment as soon as possible for a visit in 2 days Discharged I had a formal disposition interview with the patient/family to discuss the ED visit and disposition plan. Clinical Impression Final diagnoses: Acute intractable headache, unspecified headache type Occipital headache Plan: home, rest, headache instructions, f/u with pmd and rted if worse R OPERATOR RAW SALT Associated attestation - Jeannie Banks MD - 09/14/2015 11:46 PM MIXER OPERATOR RAW SALT 09/14/2015 23:46 For this patient encounter, I reviewed the WATER/WASTEWATER PROJECT ENGINEER or PA documentation, procedures (if done), treatment plan, and medical decision making; and I had utul-gm-onla time with this patient. I have conducted an independent evaluation of this patient including a focused history of sudden onset of sharp STOVER- posterior head and neck- and a physical exam revealing alert, no distress. My exam is after pain meds. Neck is supple. Discussed plan for LP- reviewed reasoning, risk/benefit - which are in concordance with the WATER/WASTEWATER PROJECT ENGINEER/PA documentation except as otherwise noted. documented in this encounter Plan of Treatment Not on file documented as of this encounter Procedures Procedure Name Priority Date/Time Associated Diagnosis Comments CT HEAD WO CONTRAST STAT 09/14/2015 1 0:00 PM MIXER OPERATOR RAW SALT Acute intractable headache, unspecified headache type EKG 12-LEAD STAT 09/14/2015 9:43 PM MIXER OPERATOR RAW SALT Acute intractable headache, unspecified headache type PT PTT PANEL STAT 09/14/2015 9:38 PM MIXER OPERATOR RAW SALT CBC W AUTO DIFFERENTIAL STAT 09/14/2015 9:38 PM MIXER OPERATOR RAW SALT COMPREHENSIVE METABOLIC PANEL STAT 09/14/2015 9:38 PM MIXER OPERATOR RAW SALT MAGNESIUM BLOOD STAT 09/14/2015 9:38 PM MIXER OPERATOR RAW SALT OXYGEN STAT 09/14/2015 9:27 PM MIXER OPERATOR RAW SALT documented in this encounter Results * CT HEAD NON CONTRAST (09/14/2015 10:00 PM MIXER OPERATOR RAW SALT) Anatomical Region Laterality Modality Head Computed Tomogra phy 09/15/2015 6:37 AM MIXER OPERATOR RAW SALT Impressions 09/15/2015 6:40 AM MIXER OPERATOR RAW SALT No acute intracranial findings on non- contrast CT of the head. Narrative 09/15/2015 6:40 AM MIXER OPERATOR RAW SALT CT brain without contrast. HISTORY: Headache Technique: [...] ORDERABLES * EKG 12-LEAD (09/14/2015 9:43 PM MIXER OPERATOR RAW SALT) Ventricular Rate 80 BPM [facility] Atrial Rate 80 BPM [facility] P-R Interval 116 ms [facility] QRS Duration ms 74 ms [facility] Q-T Interval ms 376 ms [facility] QTC Calculation (Bezet) 433 ms [facility] Calculated P [place] 51 degrees [facility] Calculated R [place] 49 degrees [facility] Calculated T [place] 46 degrees [facility] Interpretation EKG Normal sinus rhythm Nonspecific ST and T wave abnormality Abnormal ECG No previous ECGs available Confirmed by RICHARDSON HANNA FLOR ([id number]) on 09/15/2015 10:23:35 AM [facility] M[facility] 09/14/2015 9:43 PM MIXER OPERATOR RAW SALT 09/15/2015 10:23 AM [facility] Jhon Villasenor DO ECG ORDERABLES Performing Organization Address [facility] Co de Phone Number [facility] * PT PTT PANEL (09/14/2015 9:38 PM MIXER OPERATOR RAW SALT) Pathologist [facility] PT 10.2 9.5 - 11.6 sec 09/14/2015 10:04 PM [facility] INR 1.0 0.9 - 1.1 09/14/2015 10:04 PM [facility] PTT 24.3 21.0 - 32.0 sec 09/14/2015 10:04 PM [facility] Blood BLOOD SPECIMEN / Unknown 09/14/2015 9:38 PM MIXER OPERATOR RAW SALT 09/14/2015 9:39 PM [facility] Narrative [facility] - 09/14/2015 10:04 PM [facility] Conventional Warfarin Anticoagulant Therapy: INR Reference Range: ??2.0-3.0 Intensive Warfarin Anticoagulant Therapy: INR Reference Range: ? 2.5-3.5 Heparin Therapeutic Range for PTT: 44.4 - 78.3 seconds. Jhon Villasenor DO LAB - COAGULATION O RDERABLES Performing Organization Address City/[facility] Co de Phone Number [facility] [address] [place] [address] * MAGNESIUM BLOOD (09/14/2015 9:38 PM MIXER OPERATOR RAW SALT) Magnesium 2.2 1.6 - 2.6 mg/dL 09/14/2015 9:56 PM [facility] Blood BLOOD SPECIMEN / Unknown 09/14/2015 9:38 PM MIXER OPERATOR RAW SALT 09/14/2015 9:38 PM [facility] Jhon Dockery Jacklyn SNYDER LAB - CHEMISTRY ORD ERABLES [facility] [address] [place] [address] * (ABNORMAL) COMPREHENSIVE METABOLIC PANEL (09/14/2015 9:38 PM [facility]) Glucose 119(H) 74 - 106 mg/dL 09/14/2015 9:56 PM [facility] Sodium 138 136 - 145 mmol/L 09/14/2015 9:56 PM [facility] Potassium 3.7 3.5 - 5.1 mmol/L 09/14/2015 9:56 PM [facility] Chloride 103 98 - 107 mmol/L 09/14/2015 9:56 PM [facility] CO2 24 22 - 31 mmol/L 09/14/2015 9:56 PM [facility] Calcium 9.2 8.5 - 10.1 mg/dL 09/14/2015 9:56 PM [facility] Anion Gap 11 5 - 20 mmol/L 09/14/2015 9:56 PM [facility] BUN 19 7 - 21 mg/dL 09/14/2015 9:56 PM [facility] Creatinine 0.90 0.50 - 1.30 mg/dL 09/14/2015 9:56 PM [facility] Alkaline Phosphatase 57 38 - 126 U/L 09/14/2015 9:56 PM [facility] ALT 22 12 - 78 U/L 09/14/2015 9:56 PM [facility] AST 15 5 - 40 U/L 09/14/2015 9:56 PM [facility] Protein Total 8.0 6.4 - 8.2 gm/dL 09/14/2015 9:56 PM [facility] Albumin 4.2 3.4 - 5.0 gm/dL 09/14/2015 9:56 PM [facility] Bilirubin Total 0.5 0.2 - 1.0 mg/dL 09/14/2015 9:56 PM [facility] eGFR by MDRD >60 >60 mL/min/1.7 3m2 09/14/2015 9:56 PM [facility] eGFR by MDRD >60 >60 mL/min/1.7 3m2 09/14/2015 9:56 PM [facility] Blood BLOOD SPECIMEN / Unknown 09/14/2015 9:38 PM MIXER OPERATOR RAW SALT 09/14/2015 9:38 PM MIXER OPERATOR RAW SALT Jhon Villasenor DO LAB - CHEMISTRY ORD ERABLES [facility] [address] [place] [address] * (ABNORMAL) CBC W AUTO DIFFERENTIAL (09/14/2015 9:38 PM [facility]) WBC 9.2 4.4 - 10.7 x10^9/L 09/14/2015 9:41 PM [facility] WBC Corrected x10^9/L 09/14/2015 9:41 PM [facility] RBC 4.69 3.80 - 5.20 x10^12/L 09/14/2015 9:41 PM [facility] Hemoglobin 13.5 12.0 - 15.6 gm/dL 09/14/2015 9:41 PM [facility] Hematocrit 39.9 35.9 - 45.5 % 09/14/2015 9:41 PM [facility] MCV 85.1 80.7 - 98.3 fl 09/14/2015 9:41 PM [facility] MCH 28.8 26.7 - 34.0 pg 09/14/2015 9:41 PM [facility] MCHC 33.8 30.8 - 35.9 gm/dL 09/14/2015 9:41 PM [facility] Platelet Count 274 153 - 416 x10^9/L 09/14/2015 9:41 PM [facility] RDW-CV 12.5 12.1 - 14.9 % 09/14/2015 9:41 PM [facility] MPV 10.4 9.4 - 12.9 fl 09/14/2015 9:41 PM [facility] Neutrophils % 47.1 44.0 - 73.0 % 09/14/2015 9:41 PM [facility] Lymphocytes % 44.1(H) 20.0 - 43.0 % 09/14/2015 9:41 PM [facility] Monocytes % 6.0 5.0 - 13.0 % 09/14/2015 9:41 PM [facility] Eosinophils % 1.9 0.0 - 6.0 % 09/14/2015 9:41 PM [facility] Basophils % 0.7 0.0 - 2.0 % 09/14/2015 9:41 PM [facility] Immature Granulocytes 0.2 0 - 1 % 09/14/2015 9:41 PM [facility] Neutrophil Absolute 4.33 2.01 - 7.14 x10^9/L 09/14/2015 9:41 PM [facility] Lymphocytes Absolute 4.04(H) 1.07 - 3.94 x10^9/L 09/14/2015 9:41 PM [facility] Monocytes Absolute 0.55 0.26 - 1.07 x10^9/L 09/14/2015 9:41 PM [facility] Eosinophils Absolute 0.17 0 - 0.47 x10^9/L 09/14/2015 9:41 PM [facility] Basophils Absolute 0.06 0 - 0.08 x10^9/L 09/14/2015 9:41 PM [facility] Immature Granulocytes Absolute 0.02 0.00 - 0.06 x10^9/L 09/14/2015 9:41 PM [facility] nRBC Auto 0 /100 WBC 09/14/2015 9:41 PM [facility] Blood BLOOD SPECIMEN / Unknown 09/14/2015 9:38 PM MIXER OPERATOR RAW SALT 09/14/2015 9:38 PM [facility] Jhon Villasenor DO LAB - HEMATOLOGY OR DERABLES [facility] [address] [place] [address] documented in this encounter Visit [...] 0010 $ New Bag/Syringe 09/14/2015 10:22 PM MIXER OPERATOR RAW SALT 50 mL/hr 50 mL/hr 0.9% NaCl injection 1-10 mL 1-10 mL, Intracatheter, PRN, Other, Starting on 09/14/15 at 2126, Until Tue09/15/15 at 0010 $ Given 09/14/2015 10:08 PM MIXER OPERATOR RAW SALT 10 mL diphenhydrAMINE (BENADRYL) injection 25 mg 25 mg, Intravenous, NOW, 1 dose, On 09/14/15 at 2145, Max intravenous rate = 25 mg/min $ Given 09/14/2015 10:01 PM MIXER OPERATOR RAW SALT 25 mg morphine injection 4 mg 4 mg, Intravenous, NOW, 1 dose, On 09/14/15 at 2145 $ Given 09/14/2015 10:02 PM MIXER OPERATOR RAW SALT 4 mg prochlorperazine (COMPAZINE) injection 10 mg 10 mg, Intravenous, NOW, 1 dose, On 09/14/15 at 2145, Max intravenous rate = 5 mg/min $ Given 09/14/2015 10:00 PM MIXER OPERATOR RAW SALT 10 mg documented in this encounter Active and Recently Administered Medications Times are shown in MIXER OPERATOR RAW SALT. Scheduled Medication Order 09/12/2015 09/13/2015 09/14/2015 diphenhydrAMINE [...] RN) documented in this encounter Care Teams Sales Intern Relationship Specialty Start Date End Date Nicola Martinez MD [address] [place] [address] PCP - General Family Medicine 09/14/15 04/21/21 documented as of this encounter
--- OUTSIDE RECORDS SUMMARY | 2024-07-13 02:40 | XMS_ITS | Encounter Summary ---
Author Organization [facility] Address [address] [place] [address]. [place], [place] [address] [place] [address] Care Team Providers Care Receivable Executive Name Role Phone Brenton Vora MD Primary Care Provider [phone]- [phone] Encounter Details Date Type Department Care Team (Late st Contact Info) Description 05/17/2023 Orders Only [facility] [address] [address] Ann Marie Castro, [address] [place] [id number] Social History Tobacco Use Types Packs/Day Years Used Date Smoking Tobacco: Never Smokeless Tobacco: Never Alcohol Use Standard Drinks/Week Comments Not Currently 0 (1 standard drink = 0.6 oz pur e alcohol) Comments No Sex and Gender Information Value Date Recorded Sex Assigned at Not on file 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 Procedure Note Edgar Bowlse MD - 05/18/2023 Examination: XR KNEE LT [...] MD, 05/18/2023 3:45 PM Ann Marie Castro [facility] Final Resu lt documented in this encounter Visit Diagnoses Diagnosis Left knee pain, unspecified chronicity- Primary Left knee pain, unspecified chronicity documented in this encounter Care Teams Receivable Executive Relationship Specialty Start Date End Date Brenton Vora MD [address] [place] [phone] PCP - General FAMILY PRACTICE 09/09/22 documented as of this encounter
== END 2024-07-08 12:40 | disposition home or self-care (01) ==
PROVIDERS: Emergency Provider Emergency Medicine; PCP Family Medicine
DX: J32.9 Chronic sinusitis, unspecified (principal); T88.7XXA Unspecified adverse effect of drug or medicament, initial encounter; T50.905A Adverse effect of unspecified drugs, medicaments and biological substances, initial encounter; E78.5 Hyperlipidemia, unspecified; Z79.899 Other long term (current) drug therapy; Z20.822 Contact with and (suspected) exposure to COVID-19
CPT/HCPCS: 71046; 87637; 99283

== ENCOUNTER 2024-09-18 08:40 | Outpatient (CLI) | payer BC, SELFPAY ==
--- NOTE | ~2024-09-18 | MM_ITS ---
EXAMINATION: MM screening [facility] BI w shital HISTORY: Screening mammogram TECHNIQUE: Craniocaudal and mediolateral oblique 3-D tomosynthesis images were obtained and synthetic 2-D images were generated. CAD analysis was submitted and interpreted. COMPARISON: 08/27/2022, 08/25/2021, 12/05/2017 BREAST PARENCHYMAL COMPOSITION:Not Dense. There are scattered areas of fibroglandular density. FINDINGS: No suspicious mass, calcification, or architectural distortion are identified in either debbie ast to suggest malignancy. There has been no suspicious interval change. IMPRESSION: No mammographic evidence of malignancy. Recommend routine screening mammography in one year. BI-RADS Category 1: Negative Reviewed, dictated and finalized at location . DER BLOWER
--- OUTSIDE RECORDS SUMMARY | 2024-09-18 08:59 | XMS_ITS | Referral Summary ---
Author Organization [facility] [employer] Address [address] [place] [address] Care Team Providers Care Host Name Role Phone Nicola Martinez MD Unavailable None, Physician Primary Care Provider Unavailabl e Source Comments [facility],non-owned Affiliates and Associated Physician Practices is amultiple site organization consisting of ambulatory clinics and hospital sitesin [place], [place], [place] and [place]. This disclosure is being madepursuant to the Care Everywhere program and may not contain all information available regarding this patient. Last updated 18.[facility] [employer] Allergies Active Allergy Reactions Criticality Noted Date [...] 65 04/28/2023 9:09 AM CDT Temperature 36.6 C (97.9 F) 04/28/2023 9:09 AM CDT Respiratory Rate 13 09/14/2015 10:45 PM [facility] Oxygen Saturation 98% 04/28/2023 9:09 AM CDT Inhaled Oxygen Concentration - - Weight 71.7 kg (158 lb) 04/28/2023 9:09 AM CDT Height 157.5 cm (5' 2 ) 04/28/2023 9:09 AM CDT Body Mass Index 28.9 04/28/2023 9:09 AM CDT Plan of Treatment Not on file Procedures Procedure Name Priority Date/Time Associated Diagnosis Comments COMPREHENSIVE METABOLIC PANEL STAT 09/14/2015 9:38 PM CORE COMPOSER MACHINE TENDER from Last 3 Months or Most Recently Relevant to Health Maintenance Results * (ABNORMAL) COMPREHENSIVE METABOLIC PANEL (09/14/2015 9:38 PM CORE COMPOSER MACHINE TENDER) Glucose 119(H) 74 - 106 mg/dL 09/14/2015 9:56 PM [facility] Sodium 138 136 - 145 mmol/L 09/14/2015 9:56 PM [facility] Potassium 3.7 3.5 - 5.1 mmol/L 09/14/2015 9:56 PM [facility] Chloride 103 98 - 107 mmol/L 09/14/2015 9:56 PM [facility] CO2 24 22 - 31 mmol/L 09/14/2015 9:56 PM [facility] Calcium 9.2 8.5 - 10.1 mg/dL 09/14/2015 9:56 PM [facility] Anion Gap 11 5 - 20 mmol/L 09/14/2015 9:56 PM [facility] BUN 19 7 - 21 mg/dL 09/14/2015 9:56 PM [facility] Creatinine 0.90 0.50 - 1.30 mg/dL 09/14/2015 9:56 PM [facility] Alkaline Phosphatase 57 38 - 126 U/L 09/14/2015 9:56 PM [facility] ALT 22 12 - 78 U/L 09/14/2015 9:56 PM [facility] AST 15 5 - 40 U/L 09/14/2015 9:56 PM [facility] Protein Total 8.0 6.4 - 8.2 gm/dL 09/14/2015 9:56 PM CORE COMPOSER MACHINE TENDER [facility] Albumin 4.2 3.4 - 5.0 gm/dL 09/14/2015 9:56 PM CORE COMPOSER MACHINE TENDER [facility] Bilirubin Total 0.5 0.2 - 1.0 mg/dL 09/14/2015 9:56 PM CORE COMPOSER MACHINE TENDER [facility] eGFR by MDRD >60 >60 mL/min/1.7 3m2 09/14/2015 9:56 PM CORE COMPOSER MACHINE TENDER [facility] eGFR by MDRD >60 >60 mL/min/1.7 3m2 09/14/2015 9:56 PM CORE COMPOSER MACHINE TENDER [facility] Blood BLOOD SPECIMEN / Unknown 09/14/2015 9:38 PM CORE COMPOSER MACHINE TENDER 09/14/2015 9:38 PM CORE COMPOSER MACHINE TENDER Jhon Villasenor DO LAB - CHEMISTRY ORD ERABLES [facility] [address] [place] [address] from Last 3 Months or Most Recently Relevant to Health Maintenance Care Teams Host Relationship Specialty Start Date End Date None, Physician [address] [place] [address] PCP - General 04/28/23 Nicola Martinez MD [address] [place] [address] Family Medicine 04/22/21
--- OUTSIDE RECORDS SUMMARY | 2024-09-18 08:59 | XMS_ITS | Clinical Summary ---
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 Gender Identity Not on file Sexual Orientation Not on file Last Filed Vital Signs Vital Sign Reading Time Taken Comments Blood Pressure 124/83 12/03/2020 4:11 PM CDT Pulse 67 12/03/2020 4:11 PM CDT Temperature 35.8 C (96.4 F) 12/03/2020 2:05 PM CDT Respiratory Rate 16 12/03/2020 4:11 PM CDT [...] Td or Tdap) 04/29/2027 04/29/2017, 01/20/2006 Meningococcal B Vaccine Aged Out No l onger eligible based on patient's age to complete this topic Meningococcal Vaccine Aged Out No zara selina [...] patient's age to complete this topic Insurance Care Teams Stem Crusher Relationship Specialty Start Date End Date Brenton Vora MD [address] [place] [phone] PCP - General FAMILY PRACTICE 09/09/22
--- OUTSIDE RECORDS SUMMARY | 2024-09-18 08:59 | XMS_ITS | Patient Health Summary ---
Author Organization [facility] Address [address] [place] [address] Care Team Providers Care Clinical Consultant Name Role Phone Nicola Martinez MD Unavailable [phone] None, Physician Primary Care Provider Unavailabl e Note from [facility],non-owned Affiliates and Associated Physician Practices is amultiple site organization consisting of ambulatory clinics and hospital sitesin [place], [place], [place] and [place]. This disclosure is being madepursuant to the Care Everywhere program and may not contain all information available regarding this patient. Last updated 18.[facility] Allergies * Lidocaine(Unknown) * Succinylcholine(Anaphylaxis) -High Criticality [...] CDT Respiratory Rate 13 09/14/2015 10:45 PM CARTOGRAPHY SUPERVISOR Oxygen Saturation 98% 04/28/2023 9:09 AM CDT Inhaled Oxygen Concentration - - Weight 71.7 kg (158 lb) 04/28/2023 9:09 AM CDT Height 157.5 cm (5' 2 ) 04/28/2023 9:09 AM CDT Body Mass Index 28.9 04/28/2023 9:09 AM CDT Procedures * GA DESTRUCT BENIGN LESION, 1-14(Performed 09/13/2023) Performed for [...] DIFFERENTIAL(Performed 09/14/2015) * OXYGEN(Performed 09/14/2015) Results * GA DESTRUCT BENIGN LESION, 1-14 (09/13/2023 12:24 PM CARTOGRAPHY SUPERVISOR) Narrative Ruba Sullivan MD - 09/13/2023 12:24 PM CARTOGRAPHY SUPERVISOR Adonay Hull MD 09/13/2023 12:25 PM Procedure: NUB destruction Consent: [...] CT HEAD NON CONTRAST (09/14/2015 10:00 PM CARTOGRAPHY SUPERVISOR) Anatomical Region Laterality Modality Head Computed Tomogra phy 09/15/2015 6:37 AM CARTOGRAPHY SUPERVISOR Impressions 09/15/2015 6:40 AM CARTOGRAPHY SUPERVISOR No acute intracranial findings on non- contrast CT of the head. Narrative 09/15/2015 6:[address] brain without contrast. HISTORY: Headache Technique: [...] ORDERABLES * EKG 12-LEAD (09/14/2015 9:43 PM [facility]) Ventricular Rate 80 BPM [facility] Atrial Rate 80 BPM [facility] P-R Interval 116 ms [facility] QRS Duration ms 74 ms [facility] Q-T Interval ms 376 ms [facility] QTC Calculation (Bezet) 433 ms [facility] Calculated P [place] 51 degrees [facility] Calculated R [place] 49 degrees [facility] Calculated T [place] 46 degrees [facility] Interpretation EKG Normal sinus rhythm Nonspecific ST and T wave abnormality Abnormal ECG No previous ECGs available Confirmed by RICHARDSON HANNA, [facility] ([id number]) on 09/15/2015 10:23:35 AM [facility] MUSE 09/14/2015 9:43 PM [facility] 09/15/2015 10:23 AM [facility] Jhon Villasenor DO ECG ORDERABLES [facility] * PT PTT PANEL (09/14/2015 9:38 PM [facility]) PT 10.2 9.5 - 11.6 sec 09/14/2015 10:04 PM [facility] INR 1.0 0.9 - 1.1 09/14/2015 10:04 PM [facility] PTT 24.3 21.0 - 32.0 sec 09/14/2015 10:04 PM [facility] Blood BLOOD SPECIMEN / Unknown 09/14/2015 9:38 PM CARTOGRAPHY SUPERVISOR 09/14/2015 9:39 PM [facility] Narrative [facility] - 09/14/2015 10:04 PM [facility] Conventional Warfarin Anticoagulant Therapy: INR Reference Range: 2.0-3.0 Intensive Warfarin Anticoagulant Therapy: INR Reference Range: 2.5-3.5 Heparin Therapeutic Range for PTT: 44.4 - 78.3 seconds. Jhon Villasenor DO LAB - COAGULATION O RDERABLES [facility] [address] [place] [address] * (ABNORMAL) CBC W AUTO DIFFERENTIAL (09/14/2015 9:38 PM [facility]) WBC 9.2 4.4 - 10.7 x10^9/L 09/14/2015 9:41 PM [facility] WBC Corrected x10^9/L 09/14/2015 9:41 PM [facility] RBC 4.69 3.80 - 5.20 x10^12/L 09/14/2015 9:41 PM [facility] Hemoglobin 13.5 12.0 - 15.6 gm/dL 09/14/2015 9:41 PM [facility] Hematocrit 39.9 35.9 - 45.5 % 09/14/2015 9:41 PM [facility] MCV 85.1 80.7 - 98.3 fl 09/14/2015 9:41 PM [facility] MCH 28.8 26.7 - 34.0 pg 09/14/2015 9:41 PM [facility] MCHC 33.8 30.8 - 35.9 gm/dL 09/14/2015 9:41 PM [facility] Platelet Count 274 153 - 416 x10^9/L 09/14/2015 9:41 PM [facility] RDW-CV 12.5 12.1 - 14.9 % 09/14/2015 9:41 PM [facility] MPV 10.4 9.4 - 12.9 fl 09/14/2015 9:41 PM [facility] Neutrophils % 47.1 44.0 - 73.0 % 09/14/2015 9:41 PM [facility] Lymphocytes % 44.1(H) 20.0 - 43.0 % 09/14/2015 9:41 PM [facility] Monocytes % 6.0 5.0 - 13.0 % 09/14/2015 9:41 PM [facility] Eosinophils % 1.9 0.0 - 6.0 % 09/14/2015 9:41 PM [facility] Basophils % 0.7 0.0 - 2.0 % 09/14/2015 9:41 PM [facility] Immature Granulocytes 0.2 0 - 1 % 09/14/2015 9:41 PM [facility] Neutrophil Absolute 4.33 2.01 - 7.14 x10^9/L 09/14/2015 9:41 PM [facility] Lymphocytes Absolute 4.04(H) 1.07 - 3.94 x10^9/L 09/14/2015 9:41 PM [facility] Monocytes Absolute 0.55 0.26 - 1.07 x10^9/L 09/14/2015 9:41 PM [facility] Eosinophils Absolute 0.17 0 - 0.47 x10^9/L 09/14/2015 9:41 PM [facility] Basophils Absolute 0.06 0 - 0.08 x10^9/L 09/14/2015 9:41 PM [facility] Immature Granulocytes Absolute 0.02 0.00 - 0.06 x10^9/L 09/14/2015 9:41 PM [facility] nRBC Auto 0 /100 WBC 09/14/2015 9:41 PM [facility] Blood BLOOD SPECIMEN / Unknown 09/14/2015 9:38 PM CARTOGRAPHY SUPERVISOR 09/14/2015 9:38 PM [facility] Jhon Villasenor DO LAB - HEMATOLOGY OR DERABLES [facility] [address] [place] [id number] * (ABNORMAL) COMPREHENSIVE METABOLIC PANEL (09/14/2015 9:38 PM [facility]) [facility] Signature Glucose 119(H) 74 - 106 mg/dL 09/14/2015 9:56 PM [facility] Sodium 138 136 - 145 mmol/L 09/14/2015 9:56 PM [facility] Potassium 3.7 3.5 - 5.1 mmol/L 09/14/2015 9:56 PM [facility] Chloride 103 98 - 107 mmol/L 09/14/2015 9:56 PM [facility] CO2 24 22 - 31 mmol/L 09/14/2015 9:56 PM [facility] Calcium 9.2 8.5 - 10.1 mg/dL 09/14/2015 9:56 PM [facility] Anion Gap 11 5 - 20 mmol/L 09/14/2015 9:56 PM [facility] BUN 19 7 - 21 mg/dL 09/14/2015 9:56 PM [facility] Creatinine 0.90 0.50 - 1.30 mg/dL 09/14/2015 9:56 PM [facility] Alkaline Phosphatase 57 38 - 126 U/L 09/14/2015 9:56 PM [facility] ALT 22 12 - 78 U/L 09/14/2015 9:56 PM [facility] AST 15 5 - 40 U/L 09/14/2015 9:56 PM [facility] Protein Total 8.0 6.4 - 8.2 gm/dL 09/14/2015 9:56 PM [facility] Albumin 4.2 3.4 - 5.0 gm/dL 09/14/2015 9:56 PM [facility] Bilirubin Total 0.5 0.2 - 1.0 mg/dL 09/14/2015 9:56 PM [facility] eGFR by MDRD >60 >60 mL/min/1.7 3m2 09/14/2015 9:56 PM [facility] eGFR by MDRD >60 >60 mL/min/1.7 3m2 09/14/2015 9:56 PM [facility] Blood BLOOD SPECIMEN / Unknown 09/14/2015 9:38 PM CARTOGRAPHY SUPERVISOR 09/14/2015 9:38 PM [facility] Jhon Villasenor DO LAB - CHEMISTRY ORD ERABLES [facility] [address] [facility] [place] [address] * MAGNESIUM BLOOD (09/14/2015 9:38 PM [facility]) Magnesium 2.2 1.6 - 2.6 mg/dL 09/14/2015 9:56 PM CARTOGRAPHY SUPERVISOR [facility] Blood BLOOD SPECIMEN / Unknown 09/14/2015 9:38 PM CARTOGRAPHY SUPERVISOR 09/14/2015 9:38 PM CARTOGRAPHY SUPERVISOR Jhon Villasenor DO LAB - CHEMISTRY ORD ERABLES [facility] [address] [place] [address] Care Teams Clinical Consultant Relationship Specialty Start Date End Date None, Physician [address] [place] [address] PCP - General 04/28/23 Nicola Martinez MD [address] [place], [place] [id number] Family Medicine 04/22/21
--- OUTSIDE RECORDS SUMMARY | 2024-09-18 08:59 | XMS_ITS | Clinical Summary ---
Author Organization [facility] Address [address] [place] [address] Care Team Providers Care Replanting Machine Operator Name Role Phone Nicola Martinez MD Unavailable [phone] None, Physician Primary Care Provider Unavailabl e Source Comments [facility],non-owned Affiliates and Associated Physician Practices is amultiple site organization consisting of ambulatory clinics and hospital sitesin [place], [place], [place] and [place]. This disclosure is being madepursuant to the Care Everywhere program and may not contain all information available regarding this patient. Last updated 18.[facility] Allergies Active Allergy Reactions Criticality Noted Date [...] CDT Respiratory Rate 13 09/14/2015 10:45 PM DURABILITY TECHNICIAN Oxygen Saturation 98% 04/28/2023 9:09 AM [...] of 3 - 19+ 3-dose series) 1990 PNEUMOCOCCAL VACCINE 50+ (1 of 1 - PCV) 2021 ZOSTER VACCINE (1 of 2) 2021 SCREENING FOR DIABETES 04/28/2023 09/14/2015 COVID-19 VACCINE (1 - 2023-2 5 season) 2024 INFLUENZA VACCINE (#1) 2024 DEPRESSION SCREENING 07/25/2024 HIB VACCINE Aged Out No longer eligi ble based on patient's age to complete this topic HPV VACCINE Aged Out No longer eligi ble based on patient's age to complete this topic MENINGOCOCCAL (Group B) VACCINE Aged Out No longer eligible based on patient's age to complete this topic MENINGOCOCCAL VACCINE Aged Out No zara selina eligible based on patient's age to complete this topic Procedures Procedure Name Priority Date/Time Associated Diagnosis Comments COMPREHENSIVE METABOLIC PANEL STAT 09/14/2015 9:38 PM DURABILITY TECHNICIAN from Last 3 Months or Most Recently Relevant to Health Maintenance Results * (ABNORMAL) COMPREHENSIVE METABOLIC PANEL (09/14/2015 9:38 PM [facility]) [facility] Glucose 119(H) 74 - 106 mg/dL 09/14/2015 9:56 PM [facility] Sodium 138 136 - 145 mmol/L 09/14/2015 9:56 PM [facility] Potassium 3.7 3.5 - 5.1 mmol/L 09/14/2015 9:56 PM [facility] Chloride 103 98 - 107 mmol/L 09/14/2015 9:56 PM [facility] CO2 24 22 - 31 mmol/L 09/14/2015 9:56 PM [facility] Calcium 9.2 8.5 - 10.1 mg/dL 09/14/2015 9:56 PM [facility] Anion Gap 11 5 - 20 mmol/L 09/14/2015 9:56 PM [facility] BUN 19 7 - 21 mg/dL 09/14/2015 9:56 PM [facility] Creatinine 0.90 0.50 - 1.30 mg/dL 09/14/2015 9:56 PM [facility] Alkaline Phosphatase 57 38 - 126 U/L 09/14/2015 9:56 PM [facility] ALT 22 12 - 78 U/L 09/14/2015 9:56 PM [facility] AST 15 5 - 40 U/L 09/14/2015 9:56 PM [facility] Protein Total 8.0 6.4 - 8.2 gm/dL 09/14/2015 9:56 PM [facility] Albumin 4.2 3.4 - 5.0 gm/dL 09/14/2015 9:56 PM [facility] Bilirubin Total 0.5 0.2 - 1.0 mg/dL 09/14/2015 9:56 PM [facility] eGFR by MDRD >60 >60 mL/min/1.7 3m2 09/14/2015 9:56 PM [facility] eGFR by MDRD >60 >60 mL/min/1.7 3m2 09/14/2015 9:56 PM [facility] Blood BLOOD SPECIMEN / Unknown 09/14/2015 9:38 PM DURABILITY TECHNICIAN 09/14/2015 9:38 PM [facility] Jhon Villasenor DO LAB - CHEMISTRY ORD ERABLES [facility] [address] [place] [address] from Last 3 Months or Most Recently Relevant to Health Maintenance Care Teams Replanting Machine Operator Relationship Specialty Start Date End Date None, Physician [address] [place] [address] PCP - General 04/28/23 Nicola Martinez MD [address] [place] [address] Family Medicine 04/22/21
--- OUTSIDE RECORDS SUMMARY | 2024-09-18 08:59 | XMS_ITS | Encounter Summary ---
Author Organization [facility] Address [address] [place] [id number] Care Team Providers Care Sulfide Head Operator Name Role Phone Brenton Vora MD Primary Care Provider [phone] Encounter Details Date Type Department Care Team (Late st Contact Info) Description 11/02/2023 ComQi Message Enc [address] [address] Charlotte Castro, [facility] [address] [place] [address] [place] [id number] Visit Follow Up Social History Tobacco Use Types Packs/Day Years Used Date Smoking Tobacco: Never Smokeless Tobacco: Never Alcohol Use Standard Drinks/Week Comments Not Currently 0 (1 standard drink = 0.6 oz pur e alcohol) Comments No Sex and Gender Information Value Date Recorded Sex Assigned at Not on file Legal Sex Female 10:30 PM CIRCUS SUPERVISOR Gender Identity Not on file Sexual Orientation Not on file documented as of this encounter Plan of Treatment Not on file documented as of this encounter Visit Diagnoses Not on filedocumented in this encounter Care Teams Sulfide Head Operator Relationship Specialty Start Date End Date Brenton Vora MD [address] [place] [phone] PCP - General FAMILY PRACTICE 09/09/22 documented as of this encounter
== END 2024-09-18 08:41 | disposition home or self-care (01) ==
LOC: CHSIMG 08:42
PROVIDERS: PCP Family Medicine; Visit Provider Family Medicine
DX: Z12.31 Encounter for screening mammogram for malignant neoplasm of breast (principal)
CPT/HCPCS: 77063; 77067